=== PATIENT | male | born 1940 | race Caucasian/White ===

== ENCOUNTER 2017-10-03 08:37 | Day surgery (SDC) | payer OTHER ==
--- OUTSIDE RECORDS SUMMARY | 2017-10-03 08:41 | XMS REPORT | Clinical Summary ---
:1940 Author Organization [facility] Address [address] [place] [address] Care Team Providers Name Role Phone Asked, No Pcp Primary Care Provider Unavailable Allergies No Known Allergies Current Medications Prescription Sig. Disp. Refills Start Date End Date Status CLOPIDOGREL Take 75 mg by Active BISULFATE mouth daily. (CLOPIDOGREL ORAL) SIMVASTATIN ORAL Take 80 mg by Active mouth daily. metoprolol Take 50 mg by Active succinate XL mouth daily. (TOPROL-XL) 50 mg 24 hr tablet UNABLE TO FIND 1 tablet daily. Discontinued Metoprolol ER - 7 patient does not know dosage UNABLE TO FIND 50 mg daily. Discontinued Metoprolol ER 7 traMADol (ULTRAM) Take 1 tablet 30 tablet 0 05/03/2017 50 mg tablet (50 mg total) by 7 mouth every 6 (six) hours as needed for moderate pain for up to 10 days. enoxaparin Inject 0.4 mL 8 mL 0 05/03/2017 (LOVENOX) 40 (40 mg total) 8 mg/0.4 mL syringe under the skin daily for 20 days. traMADol (ULTRAM) Take 1 tablet 30 tablet 0 07/31/2017 50 mg tablet (50 mg total) by 8 mouth every 6 (six) hours as needed for severe pain for up to 7 days. gabapentin Take 1 capsule 36 capsule 0 07/31/2017 (NEURONTIN) 300 mg (300 mg total) 8 capsule by mouth 3 (three) times a day for 12 days. Active Problems Problem Noted Date Attention to ileostomy 07/28/2017 CA of rectum 04/28/2017 Encounters Date Type Specialty Care Team Description 07/28/2017 - Hospital Encounter General Surgery Ally Funes Attention to 07/31/2017 MD Levon ileostomy 07/28/2017 Procedure Pass Urology 07/28/2017 Surgery Urology Shira Funes. ILEOSTOMY CLOSURE MD Levon 07/27/2017 Pre-Admit Testing Pre-Admission Shira Funes. Preop testing Appointment Testing MD Levon (Primary Dx) 07/27/2017 Hospital Encounter Radiology Shira Funes. Attention to MD Levon ileostomy 07/06/2017 Transcribe Orders Access Shira Funes. History of colon MD Levon cancer (Primary Dx) 07/05/2017 Transcribe Orders Access Shira Funes. MD Levon 07/03/2017 Hospital Encounter Radiology Shira Funes. Attention to MD Levon ileostomy 07/03/2017 Pre-Admit Testing Pre-Admission Shira Funes. Preop examination Appointment Testing MD Levon (Primary Dx) 07/03/2017 Anesthesia Event Urology Colleen Dunn, [employer] WORK[employer] 06/23/2017 Transcribe Orders Access Shira Funes. Attention to MD Levon ileostomy (Primary Dx) 06/22/2017 Transcribe Orders Access Shira Funes. Attention to MD Levon ileostomy (Primary Dx) 04/28/2017 - Hospital Encounter General Surgery Shira Funes. CA of rectum 05/03/2017 MD Levon 04/28/2017 Procedure Pass Urology 04/28/2017 Surgery Urology Shira Funes. LOW ANTERIOR MD Levon RESECTION W/ LOOP ILEOSTOMY. 04/19/2017 Hospital Encounter Radiology Fredo, Preop testing Catrina, [employer] WORKER 04/19/2017 Pre-Admit Testing Pre-Admission Ally Funes Preop testing Appointment Testing MD Levon (Primary Dx) 04/19/2017 Anesthesia Event Urology Catrina Yoo, [employer] WORKER 04/05/2017 Hospital Encounter Urology Shira Funes. MD Levon 04/05/2017 Procedure Pass Urology 04/05/2017 Surgery Urology Shira Funes. ANAL EXAM UNDER MD Levon ANESTHESIA , PROCTOSCOPY 04/04/2017 Anesthesia Event Urology Edgar Brooks MD 01/27/2017 Hospital Encounter Radiology Ally Funes Rectal cancer MD Levon 12/12/2016 Procedure Pass Radiology 12/12/2016 Transcribe Orders Access Ally Funes Rectal cancer MD Levon (Primary Dx) after 10/02/2016 Social History Tobacco Use Types Packs/Day Years Used Date Former Smoker Cigarettes 1 30 Smokeless Tobacco: Former User Chew Quit: 03/22/1995 Comments: stopped 1989 Alcohol Use Drinks/Week oz/Week Comments No Sex Assigned at Date Recorded Not on file Last Filed Vital Signs Vital Sign Reading Time Taken Blood Pressure 136/62 07/31/2017 7:30 AM CDT Pulse 59 07/31/2017 7:30 AM CDT Temperature 36.3 C (97.3 F) 07/31/2017 7:30 AM CDT Respiratory Rate 18 07/31/2017 7:30 AM CDT Oxygen Saturation 96% 07/31/2017 7:30 AM CDT Inhaled Oxygen Concentration - - Weight 73.5 kg (162 lb 1 oz) 07/28/2017 6:51 AM PRIMARY CARE PROVIDER Height 172.7 cm (5' 8") 07/28/2017 6:51 AM PRIMARY CARE PROVIDER Body Mass Index 24.64 07/28/2017 6:51 AM PRIMARY CARE PROVIDER Plan of Treatment Health Maintenance Due Date Last Done Comments COLONOSCOPY 1992 SHINGRIX VACCINE (#1) 1992 ZOSTER VACCINE 2002 PNEUMOCOCCAL POLYSACCHARIDE VACCINE AGE 65 AND OVER 2007 PNEUMOCOCCAL-13 2007 INFLUENZA VACCINE 12/20/2017 Implants Implanted Type Area Wardrobe Technician Device Expiration Model / Identifier Date Serial / Lot Drain Wnd 20cm 10mm Flat Hbls Full Perfrtn Suzanna - [id number] Surgical [employer] [id number] / Implanted: Qty: 1 on 04/28/2017 by Ally Funes MD Implants; DIVISION / Expanders; Extenders; Surgical Wires Procedures Procedure Name Priority Date/Time Associated Diagnosis Comments ILEOSTOMY CLOSURE 07/28/2017 9:00 AM PRIMARY CARE PROVIDER Attention to ileostomy Case Notes GEN/EPI ANESTHESIA Special Needs GEN/EPI ANESTHESIA WA AN ELECTIVE ENDOTRACHEAL AIRWAY Routine 07/28/2017 8:22 AM PRIMARY CARE PROVIDER Procedure Note - Diogo Steward CRNA - 07/28/2017 8:22 AM PRIMARY CARE PROVIDER Airway Date/Time: 07/28/2017 8:22 AM Performed by: DIOGO STEWARD Authorized by: MILTON VALLEJO Location: OR Urgency: Elective Difficult Airway: No Resident/FUNCTIONAL SUPPORT ANALYST/AA: DIOGO STEWARD Performed by: resident/FUNCTIONAL SUPPORT ANALYST/AA Preoxygenated with 100% O2: Yes C-spine Precautions Maintained Throughout: Yes Mask Ventilation: Easy mask Final Airway Type: Endotracheal airway Final Endotracheal Airway: ETT Cuffed: Yes Technique Used: Direct laryngoscopy Devices/Methods Used in Placement: Intubating stylet Insertion Site: Oral Blade Type: Escamilla Laryngoscope Blade/Videolaryngoscope Blade Size: 2 ETT Size (mm): 8.0 Cuff at minimum occlusion pressure: Yes Measured from: Lips ETT to Lips (cm): 21 Placement Verified by: CO2 detection, direct visualization and equal breath sounds Laryngoscopic view: Grade I - full view of glottis Rapid Sequence Induction (RSI): No Modified RSI: No Number of Attempts at Approach: 1 LOW ANTERIOR RESECTION W/ LOOP ILEOSTOMY. 04/28/2017 9:30 AM PRIMARY CARE PROVIDER CA of rectum Case Notes EST 2.5HRS; GEN EPI ANESTHESIA Special Needs EST 2.5HRS; GEN EPI ANESTHESIA WA AN EPIDURAL BLOCK POST-OP PAIN Routine 04/28/2017 8:55 AM PRIMARY CARE PROVIDER Procedure Note - Greg Gonzalez DO - 04/28/2017 8:54 AM PRIMARY CARE PROVIDER Epidural Block Performed by: GREG GONZALEZ Authorized by: GREG GONZALEZ Patient Location: Pre-op Start Time: 04/28/2017 8:36 AM End Time: 04/28/2017 8:50 AM Reason for Block: at surgeon's request, post-op pain management Performed by: Anesthesiologist Preprocedure: patient identified, IV checked, site and side verified, risks and benefits discussed, procedure verified, surgical consent completed, patient position confirmed, monitors and equipment checked and pre-op evaluation completed Patient Position: Sitting Prep: Betasept Monitoring: Blood pressure monitoring, continuous pulse oximetry, CO2 and heart rate Approach: Midline Interspace: T11-12 Injection Technique: KEVAN air Needle Type: Tuohy Needle Gauge: 17 Loss of resistance: 5 cm Catheter at Skin Depth: 9 cm Test Dose: Negative and lidocaine 1.5% with epinephrine 1-to-200,000 Number of Attempts: 1 Coagulation status: Coagulation status reviewed Block Outcome: No apparent complications, patient comfortable and patient tolerated procedure well Post-procedure: Patient returned to supine position with left lateral displacement and sterile dressing applied Time: 04/28/2017 8:36 AM CONSULT TO OSTOMY CARE NURSE Routine 04/28/2017 8:00 AM PRIMARY CARE PROVIDER WA AN ELECTIVE SUPRAGLOTTIC AIRWAY Routine 04/05/2017 1:00 PM PRIMARY CARE PROVIDER Procedure Note - Joey Melendez MD - 04/05/2017 1:00 PM PRIMARY CARE PROVIDER Airway Performed by: JOEY MELENDEZ Authorized by: JOEY MELENDEZ Location: OR Urgency: Elective Difficult Airway: No Preoxygenated with 100% O2: Yes Mask Ventilation: Easy mask Final Airway Type: Supraglottic airway Final LMA: Classic LMA Size: 5 Number of Attempts at Approach: 1 ANAL EXAM UNDER ANESTHESIA , 04/05/2017 12:30 PM PRIMARY CARE PROVIDER RECTAL CARCINOMA C20 PROCTOSCOPY Case Notes REQ 1230 START Special Needs REQ 1230 START, EST 1HR after 10/02/2016 Results CBC with platelet and differential (07/30/2017 4:30 AM)Only the most recent of4 resultswithin the time period is included. Component Value Ref Range WBC 9.52 4.50 - 11.00 k/uL RBC 4.07 (L) 4.40 - 6.00 m/uL HGB 12.5 (L) 14.0 - 18.0 g/dL HCT 38.0 (L) 41.0 - 51.0 % MCV 93.4 82.0 - 100.0 fL MCH 30.7 27.0 - 34.0 pg MCHC 32.9 31.0 - 37.0 g/dL RDW - SD 47.2 37.0 - 55.0 fL MPV 8.2 (L) 8.8 - 13.2 fL Platelet count 248 150 - 400 k/uL Nucleated RBC 0.00 /100 WBC Neutrophils 66.8 39.0 - 69.0 % Lymphocytes 19.2 (L) 25.0 - 45.0 % Monocytes 11.6 (H) 0.0 - 10.0 % Eosinophils 1.8 0.0 - 5.0 % Basophils 0.3 0.0 - 1.0 % Immature granulocytes 0.3Comment: "Immature granulocytes" 0.0 - 1.0 % (promyelocytes, myelocytes, metamyelocytes) Specimen Performing Laboratory Blood [facility] DEPARTMENT OF PATHOLOGY AND GENOMIC MEDICINE [address] [id number] Estimated GFR (07/30/2017 4:00 AM)Only the most recent of7 resultswithin the time period is included. Component Value Ref Range GFR Non Af Amer 65 mL/min/1.73 m2 GFR Af Amer 79 mL/min/1.73 m2 Comment: Chronic kidney disease: <60 mL/min/1.73m2 Kidney failure: <15 mL/min/1.73m2 The estimated GFR is calculated from the IDMS-traceable Modification of Diet in Renal Disease Equation. The accuracy of the calculation is poor when the creatinine is normal. Calculated values >90 mL/min/1.73m2 are not reported. This equation has not been validated in children (<18 years), women, the elderly (>70 years), or ethnic groups other than Caucasians and Americans. Specimen Performing Laboratory Plasma specimen [facility] DEPARTMENT OF PATHOLOGY AND GENOMIC MEDICINE [address] [place] [address] Phosphorus level (07/30/2017 4:00 AM)Only the most recent of3 resultswithin the time period is included. Component Value Ref Range Phosphorus 3.2 2.4 - 4.5 mg/dL Specimen Performing Laboratory Plasma specimen [facility] DEPARTMENT OF PATHOLOGY AND GENOMIC MEDICINE [address] [place] [address] Magnesium level (07/30/2017 4:00 AM)Only the most recent of3 resultswithin the time period is included. Component Value Ref Range Magnesium 2.0 1.6 - 2.4 mg/dL Specimen Performing Laboratory Plasma specimen [facility] DEPARTMENT OF PATHOLOGY AND [facility]ICINE [address] [place] [address] Basic metabolic panel (07/30/2017 4:00 AM)Only the most recent of4 resultswithin the time period is included. Component Value Ref Range Sodium 140 135 - 148 mEq/L Potassium 4.0 3.5 - 5.0 mEq/L Chloride 105 98 - 112 mEq/L CO2 22 (L) 24 - 31 mEq/L Anion gap 13 7 - 15 mEq/L Comment: Starting from August , anion gap calculation no longer incorporates potassium. Please note the change. BUN 8 8 - 23 mg/dL Creatinine 1.1 0.7 - 1.2 mg/dL Glucose 79 65 - 99 mg/dL Calcium 8.9 8.8 - 10.2 mg/dL Specimen Performing Laboratory Plasma specimen [facility] DEPARTMENT OF PATHOLOGY AND GENOMIC MEDICINE [address] [place] [address] Surgical pathology request (07/28/2017 9:55 AM)Only the most recent of3 resultswithin the time period is included. Component Value Ref Range Surgical pathology report See link below for PDF Lab Report Result status This is Final Report to [id number] Specimen Performing Laboratory [facility] DEPARTMENT OF PATHOLOGY AND GENOMIC MEDICINE [address] [place] [address] Type and screen (07/27/2017 11:48 AM)Only the most recent of3 resultswithin the time period is included. Component Value Ref Range ABO grouping A Rh type POS Antibody screen (gel) NEG Specimen Performing Laboratory Blood [facility] DEPARTMENT OF PATHOLOGY AND [address] [address] [place] Colon Gastrografin Water Soluble Enema (07/27/2017 11:19 AM)Only the most recent of2 resultswithin the time period is included. Specimen Performing Laboratory [facility] [address] [place] [address] Narrative EXAMINATION:FL COLON GASTROGRAFIN WATER SOLUBLE ENEMA CLINICAL HISTORY:Z43.2 Encounter for attention to ileostomy, Z43.2 COMPARISON:07/03/2017 TECHNIQUE:Water-soluble contrast administered via a rectal tube by gravity under fluoroscopic guidance. Spot radiographs and overhead films were obtained. FLUOROSCOPIC TIME:1.6 minutes IMAGES:22 FINDINGS: There are postsurgical changes in the lower rectum. Contrast passes through this area without contrast leak. There is no stricture in this area. There are left-sided colonic diverticula. There is no colonic stricture identified. Contrast reached the cecum. IMPRESSION: Postsurgical changes in the lower rectum without evidence of leak or stricture. Additional findings as above. [facility]-[id number] Procedure Note Interface, Radiology Results Incoming - 07/27/2017 11:53 AM PRIMARY CARE PROVIDER EXAMINATION: FL COLON GASTROGRAFIN WATER SOLUBLE ENEMA CLINICAL HISTORY: Z43.2 Encounter for attention to ileostomy, Z43.2 COMPARISON: 07/03/2017 TECHNIQUE: Water-soluble contrast administered via a rectal tube by gravity under fluoroscopic guidance. Spot radiographs and overhead films were obtained. FLUOROSCOPIC TIME: 1.6 minutes IMAGES: 22 FINDINGS: There are postsurgical changes in the lower rectum. Contrast passes through this area without contrast leak. There is no stricture in this area. There are left-sided colonic diverticula. There is no colonic stricture identified. Contrast reached the cecum. IMPRESSION: Postsurgical changes in the lower rectum without evidence of leak or stricture. Additional findings as above. [facility]-[id number] CBC hemogram (07/03/2017 12:38 PM) Component Value Ref Range WBC 8.30 4.50 - 11.00 k/uL RBC 5.01 4.40 - 6.00 m/uL HGB 15.4 14.0 - 18.0 g/dL HCT 46.0 41.0 - 51.0 % MCV 91.8 82.0 - 100.0 fL MCH 30.7 27.0 - 34.0 pg MCHC 33.5 31.0 - 37.0 g/dL RDW - SD 47.3 37.0 - 55.0 fL MPV 8.3 (L) 8.8 - 13.2 fL Platelet count 343 150 - 400 k/uL Nucleated RBC 0.00 /100 WBC Specimen Performing Laboratory Blood [facility] DEPARTMENT OF PATHOLOGY AND GENOMIC MEDICINE [address] [place] [phone] Comprehensive metabolic panel (07/03/2017 12:38 PM)Only the most recent of2 resultswithin the time period is included. Component Value Ref Range Sodium 139 135 - 148 mEq/L Potassium 4.4 3.5 - 5.0 mEq/L Chloride 103 98 - 112 mEq/L CO2 23 (L) 24 - 31 mEq/L Anion gap 13 7 - 15 mEq/L Comment: Starting from August , anion gap calculation no longer incorporates potassium. Please note the change. BUN 12 8 - 23 mg/dL Creatinine 1.2 0.7 - 1.2 mg/dL Glucose 111 (H) 65 - 99 mg/dL Calcium 9.9 8.8 - 10.2 mg/dL Protein 7.5 6.3 - 8.3 g/dL Comment: 4.6-7.0 g/dL 1 week 4.4-7.6 g/dL 7 months-1year5.1-7.3 g/dL 1-2 years5.6-7.5 g/dL >3 years6.0-8.0 g/dL 18-150 6.3-8.3 g/dL Albumin 3.6 3.5 - 5.0 g/dL A/G ratio 0.9 0.7 - 3.8 Alkaline phosphatase 82 40 - 129 U/L AST 19 10 - 50 U/L ALT 24 5 - 50 U/L Total bilirubin 0.4 0.0 - 1.2 mg/dL Specimen Performing Laboratory Plasma specimen [facility] DEPARTMENT OF PATHOLOGY AND GENOMIC MEDICINE [address] [place] [address] ECG Pre/Post Op (04/19/2017 12:47 PM) Component Value Ref Range Ventricular rate 57 Atrial rate 57 WA interval 176 QRSD interval 98 QT interval 442 QTC interval 430 P axis 1 47 QRS axis 1 -29 T wave axis 46 EKG impression Sinus bradycardia-Otherwise normal ECG-In automated comparison with ECG of 05-APR-2017 12:04,-No significant change was found- Specimen Performing Laboratory [facility] M[facility] [address] [place] [address] XR Chest 2 Vw (04/19/2017 12:09 PM) Specimen Performing Laboratory [facility] [address] [place] [address] Narrative EXAMINATION:XR CHEST 2 VW CLINICAL HISTORY:Z01.818 Encounter for other preprocedural examination, pre -op shortness of breath COMPARISON:None IMPRESSION: There is mild thoracic scoliosis.There is a right IJ catheter in his peer vena cava. The heart and mediastinum are normal.Pulmonary vessels are in the normal range.The lung garcia are clear. There is bony deformity in the left upper ribs from previous fracture. [facility]-[id number] Procedure Note Interface, Radiology Results Incoming - 04/19/2017 12:27 PM PRIMARY CARE PROVIDER EXAMINATION: XR CHEST 2 VW CLINICAL HISTORY: Z01.818 Encounter for other preprocedural examination, pre- op shortness of breath COMPARISON: None IMPRESSION: There is mild thoracic scoliosis. There is a right IJ catheter in his peer vena cava. The heart and mediastinum are normal. Pulmonary vessels are in the normal range. The lung garcia are clear. There is bony deformity in the left upper ribs from previous fracture. [facility]-[id number] Estimated GFR (04/05/2017 12:30 PM) Component Value Ref Range GFR Non Af Amer 59 (A) mL/min/1.73 m2 GFR Af Amer 72 mL/min/1.73 m2 Comment: Chronic kidney disease: <60 mL/min/1.73m2 Kidney failure: <15 mL/min/1.73m2 The estimated GFR is calculated from the IDMS-traceable Modification of Diet in Renal Disease Equation. The accuracy of the calculation is poor when the creatinine is normal. Calculated values >90 mL/min/1.73m2 are not reported. This equation has not been validated in children (<18 years), women, the elderly (>70 years), or ethnic groups other than Caucasians and Americans. Specimen Performing Laboratory Blood [facility] DEPARTMENT OF PATHOLOGY AND GENOMIC MEDICINE [address] [place] [address] I-Stat chemistry panel (04/05/2017 12:30 PM) Component Value Ref Range POC sodium 141Comment: Testing performed on the ISTAT instrument 135 - 148 mEq/L by RN Tech [id number] POC potassium 4.0 3.5 - 5.0 mEq/L POC chloride 104 99 - 109 mEq/L POC CO2 27 24 - 31 mEq/L POC glucose 103 (H) 65 - 99 mg/dL POC BUN 17 8 - 24 mg/dL POC creatinine 1.2 0.7 - 1.2 mg/dl POC hematocrit 48 41 - 51 % Specimen Performing Laboratory Blood [facility] DEPARTMENT OF PATHOLOGY AND [facility] MEDICINE [address] [place] [address]91 ECG 12 lead (04/05/2017 12:04 PM) Component Value Ref Range Ventricular rate 62 Atrial rate 62 WA interval 170 QRSD interval 104 QT interval 428 QTC interval 434 P axis 1 10 QRS axis 1 -38 T wave axis 51 EKG impression Normal sinus rhythm-Left axis deviation-Abnormal ECG-No previous ECGs available- Specimen Performing Laboratory [facility] [address] [place] [address]22 MRI Pelvis W Wo Contrast (01/27/2017 12:00 PM) Specimen Performing Laboratory [facility] [address] [place] [address]48 Narrative EXAMINATION:MRI PELVIS W WO CONTRAST CLINICAL HISTORY:C20 Malignant neoplasm of rectum, RECTAL CA TECHNIQUE: Multiplanar multisequence MR images of the pelvis were obtained pre - and post intravenous administration of Gadolinium. COMPARISON:None. IMPRESSION: 1. There is a mid to low rectal tumor. The inferior margin is approximately 7 cm from the anal verge along the right lateral aspect, with central ulceration. Tumor measures approximately 1.5 cm. High-resolution oblique axial images (series 7 image 13) demonstrate a short segment of full-thickness muscularis propria invasion from 8-9:00, suggesting T3a disease. Tumor comes within 4 mm of the CRM at this point. 2.There is no suspicious mesorectal lymphadenopathy (N0).There is no adenopathy elsewhere in the pelvis. 3.Diffuse T2 hypointensity in the peripheral zone of the prostate most suggestive of prostatitis/atrophy. Mild BPH. 4.The urinary bladder is unremarkable. 5.There is sigmoid diverticulosis without acute diverticulitis. 6.No suspicious osseous lesions are seen. [facility]-[id number] Procedure Note [facility], Radiology Results Incoming - 01/27/2017 5:08 PM CDT EXAMINATION: MRI PELVIS W WO CONTRAST CLINICAL HISTORY: C20 Malignant neoplasm of rectum, RECTAL CA TECHNIQUE: Multiplanar multisequence MR images of the pelvis were obtained pre - and post intravenous administration of Gadolinium. COMPARISON: None. IMPRESSION: 1. There is a mid to low rectal tumor. The inferior margin is approximately 7 cm from the anal verge along the right lateral aspect, with central ulceration. Tumor measures approximately 1.5 cm. High-resolution oblique axial images (series 7 image 13) demonstrate a short segment of full-thickness muscularis propria invasion from 8-9:00, suggesting T3a disease. Tumor comes within 4 mm of the CRM at this point. 2. There is no suspicious mesorectal lymphadenopathy (N0). There is no adenopathy elsewhere in the pelvis. 3. Diffuse T2 hypointensity in the peripheral zone of the prostate most suggestive of prostatitis/atrophy. Mild BPH. 4. The urinary bladder is unremarkable. 5. There is sigmoid diverticulosis without acute diverticulitis. 6. No suspicious osseous lesions are seen. [facility]-[id number] Creatinine level (01/27/2017 10:59 AM) Component Value Ref Range Creatinine 1.3 (H)Comment: Testing performed on the ISTAT instrument 0.7 - 1.2 mg/dL by GERARDO Bates [id number] Specimen Performing Laboratory Plasma specimen [facility] DEPARTMENT OF PATHOLOGY AND GENOMIC MEDICINE [address] [place] [address] after 10/02/2016 Insurance Payer Benefit Plan / Group Subscriber ID Type Phone Address [employer] MED[employer]ARE A[employer]NA MEDICARE HMO/PPO [facility] xxxxxxxx HMO Home: [address] [place], [place] [id number] [phone]
--- OUTSIDE RECORDS SUMMARY | 2017-10-03 08:42 | XMS REPORT ---
:1940 [facility] [address] [place] [address] [address]. G[address] [place] [address] Care Team Providers Name Role Phone VENTURA VALDOVINOS Unavailable Unavailable Problems This patient has no known problems. Allergies, Adverse Reactions, Alerts This patient has no known allergies or adverse reactions. Medications This patient has no known medications. Results Test Description Test Time Test Comments Text Results Atomic Results Result Comments BLOOD CULTURE 2016-11-10 11:01:00 Test Item Value Reference Range Comments CULTURE (BEAKER) (test kssm=8597) No growth in 5 days TISSUE [id number] 19:27:00Surgical Pathology Report Case: [id number] Authorizing Provider: Bruna Hauser Collected: 11/05/2016 1058 MD Anderson OrderingLocation: [place] [address] ICU Received: 2016 0813 Pathologist: Steve Cabrales MD Specimen: Polyp, Colon - Rectosigmoid , BX OF THE RECTOSIGMOID MASS A. RECTOSIGMOID COLON , MASS, BIOPSY: - SUPERFICIAL FRAGMENTS OF ADENOCARCINOMA ( SEE COMMENT) - UNDERLYING INVASIVE COMPONENT CANNOT BE EXCLUDED The biopsy consists of several fragments of superficially sampled adenocarcinoma. No definite desmoplastic stroma is seen to confidently assess invasion. Clinical and radiologic correlation is recommended.[id number] GI bleedRectosigmoid mass biopsy The specimen is received in a formalin-filled containerlabeled with the patient's information and labeled " "rectosigmoid colon polyp" and consists of multiple fragments of tom-white soft tissue ranging from 0.1 to 0.4 cm, submitted entirely in A1. CG/ew Performed.BASIC METABOLIC [id number] 07:03:00 Test Item Value Reference Range Comments SODIUM (BEAKER) (test 138 meq/L 136-145 ohhm=662) POTASSIUM (BEAKER) (test 3.5 meq/L 3.5-5.1 qfnw=378) CHLORIDE (BEAKER) (test 106 meq/L 98-107 fikl=120) CO2 (BEAKER) (test 25 meq/L 22-29 oazj=093) BLOOD UREA NITROGEN 11 mg/dL 7-21 (BEAKER) (test vqri=761) CREATININE (BEAKER) (test 0.99 mg/dL 0.57-1.25 lawj=796) GLUCOSE RANDOM (BEAKER) 102 mg/dL 70-105 (test prja=556) CALCIUM (BEAKER) (test 8.1 mg/dL 8.4-10.2 ukaa=888) EGFR (BEAKER) (test 74 mL/min/1.73 sq m ESTIMATED GFR IS NOT jydt=8430) ACCURATE CREATININE CLEARANCE IN PREDICTING GLOMERULAR FILTRATION RATE. ESTIMATED GFR IS NOT APPLICABLE FOR DIALYSIS PATIENTS. CBC (HEMOGRAM ONLY)2016-11-07 06:42:00 Test Item Value Reference Range Comments WHITE BLOOD CELL COUNT (BEAKER) (test kdyc=306) 11.5 K/ L 4.0-10.0 RED BLOOD CELL COUNT (BEAKER) (test nkst=267) 3.73 M/ L 4.20-5.80 HEMOGLOBIN (BEAKER) (test quit=970) 11.3 GM/DL 13.0-16.8 HEMATOCRIT (BEAKER) (test benq=934) 34.8 % 40.0-50.0 MEAN CORPUSCULAR VOLUME (BEAKER) (test moja=844) 93.5 fL 82.0-98.0 MEAN CORPUSCULAR HEMOGLOBIN (BEAKER) (test 30.4 pg 27.0-33.0 lsjs=505) MEAN CORPUSCULAR HEMOGLOBIN CONC (BEAKER) (test 32.5 GM/DL 32.0-36.0 pluv=723) RED CELL DISTRIBUTION WIDTH (BEAKER) (test 14.0 % 10.3-14.2 auid=494) PLATELET COUNT (BEAKER) (test iekn=231) 219 K/CU MM 150-430 MEAN PLATELET VOLUME (BEAKER) (test ftuh=121) 6.0 fL 6.5-10.5 NUCLEATED RED BLOOD CELLS (BEAKER) (test 0 /100 WBC 0-0 huio=563) 0.00BASIC METABOLIC [id number] 05:54:00 Test Item Value Reference Range Comments SODIUM (BEAKER) (test 141 meq/L 136-145 cdxj=715) POTASSIUM (BEAKER) (test 4.1 meq/L 3.5-5.1 Specimen slightly zvrn=800) hemolyzed CHLORIDE (BEAKER) (test 111 meq/L 98-107 gflm=139) CO2 (BEAKER) (test 24 meq/L 22-29 kban=498) BLOOD UREA NITROGEN 10 mg/dL 7-21 (BEAKER) (test wmtw=593) CREATININE (BEAKER) (test 0.88 mg/dL 0.57-1.25 Specimen slightly qgad=362) hemolyzed GLUCOSE RANDOM (BEAKER) 95 mg/dL 70-105 (test cant=418) CALCIUM (BEAKER) (test 8.1 mg/dL 8.4-10.2 lqrj=111) EGFR (BEAKER) (test 85 mL/min/1.73 sq m ESTIMATED GFR IS NOT mhjf=8217) ACCURATE CREATININE CLEARANCE IN PREDICTING GLOMERULAR FILTRATION RATE. ESTIMATED GFR IS NOT APPLICABLE FOR DIALYSIS PATIENTS. CBC (HEMOGRAM ONLY)2016-11-06 05:38:00 Test Item Value Reference Range Comments WHITE BLOOD CELL COUNT (BEAKER) (test xhmv=458) 12.6 K/ L 4.0-10.0 RED BLOOD CELL COUNT (BEAKER) (test pllu=277) 3.74 M/ L 4.20-5.80 HEMOGLOBIN (BEAKER) (test pkab=792) 11.3 GM/DL 13.0-16.8 HEMATOCRIT (BEAKER) (test ajup=761) 35.0 % 40.0-50.0 MEAN CORPUSCULAR VOLUME (BEAKER) (test rnsb=607) 93.6 fL 82.0-98.0 MEAN CORPUSCULAR HEMOGLOBIN (BEAKER) (test 30.3 pg 27.0-33.0 xmct=107) MEAN CORPUSCULAR HEMOGLOBIN CONC (BEAKER) (test 32.4 GM/DL 32.0-36.0 pvnd=122) RED CELL DISTRIBUTION WIDTH (BEAKER) (test 14.1 % 10.3-14.2 bnur=633) PLATELET COUNT (BEAKER) (test zoje=432) 215 K/CU MM 150-430 MEAN PLATELET VOLUME (BEAKER) (test tier=698) 6.5 fL 6.5-10.5 NUCLEATED RED BLOOD CELLS (BEAKER) (test 0 /100 WBC 0-0 hkdk=141) 0.00HEMOGLOBIN AND [id number] 00:16:00 Test Item Value Reference Range Comments HEMOGLOBIN (BEAKER) (test fggs=268) 9.8 GM/DL 13.0-16.8 HEMATOCRIT (BEAKER) (test kfwk=014) 30.4 % 40.0-50.0 CARCINOEMBRYONIC ANTIGEN (CEA)2016-11-05 17:22:00 Test Item Value Reference Range Comments CARCINOEMBRYONIC ANTIGEN (BEAKER) (test vskg=855) 1.7 ng/mL 0.0-5.0 HEMOGLOBIN AND [id number] 16:51:00 Test Item Value Reference Range Comments HEMOGLOBIN (BEAKER) (test plqg=439) 11.8 GM/DL 13.0-16.8 HEMATOCRIT (BEAKER) (test hkva=995) 37.0 % 40.0-50.0 HEMOGLOBIN AND [id number] 07:34:00 Test Item Value Reference Range Comments HEMOGLOBIN (BEAKER) (test kwia=946) 12.1 GM/DL 13.0-16.8 HEMATOCRIT (BEAKER) (test azca=173) 37.6 % 40.0-50.0 URINALYSIS W/ [id number] 07:10:00 Test Item Value Reference Range Comments COLOR (BEAKER) (test wxuy=613) Light Yellow CLARITY (BEAKER) (test qpwu=732) Clear SPECIFIC GRAVITY UA (BEAKER) (test kaad=935) 1.012 1.001-1.035 PH UA (BEAKER) (test nrvm=607) 5.5 5.0-8.0 PROTEIN UA (BEAKER) (test rhnu=970) Negative Negative GLUCOSE UA (BEAKER) (test xqmt=695) Negative Negative KETONES UA (BEAKER) (test fjmb=400) Negative Negative BILIRUBIN UA (BEAKER) (test qmgj=977) Negative Negative BLOOD UA (BEAKER) (test uirv=291) Negative Negative NITRITE UA (BEAKER) (test kbgj=088) Negative Negative LEUKOCYTE ESTERASE UA (BEAKER) (test wyne=109) Negative Negative UROBILINOGEN UA (BEAKER) (test mjta=504) 0.2 mg/dL 0.2-1.0 RBC UA (BEAKER) (test ympq=981) 0 /HPF WBC UA (BEAKER) (test txxe=990) 1 /HPF MUCUS (BEAKER) (test vsjv=9586) Rare SOURCE(BEAKER) (test ryma=7801) CALCIUM, [id number] 05:43:00 Test Item Value Reference Range Comments CALCIUM IONIZED (BEAKER) (test uhgq=084) 0.97 mmol/L 1.12-1.27 PH, BLOOD (BEAKER) (test yafb=7865) 7.33 CREATINE KINASE (CK), TOTAL AND [id number] 01:37:00 Test Item Value Reference Range Comments CREATINE KINASE TOTAL (BEAKER) (test egip=994) 40 U/L 29-200 CREATINE KINASE-MB (BEAKER) (test tlwv=710) 0.5 ng/mL 0.0-6.6 CREATINE KINASE-MB INDEX (BEAKER) (test rhtf=395) 1.3 % Effective 04/08/2014: CK-MB Reference Range ChangeNew: 0.0-6.6 Previous: 0.0- 4.9CK-MB Reference Range:<6.7 Normal6.7-10.0 Borderline>10.0 AbnormalTROPONIN [id number] 01:37:00 Test Item Value Reference Range Comments TROPONIN I (BEAKER) (test vbtv=576) < ng/mL 0.00-0.03 Effective 04/08/2014: Reference Range ChangeNew: 0.00-0.03 Previous 0.00- 0.15Troponin I (TnI) levels must be interpreted in the context of the presenting symptoms and the clinical findings. Elevated TnI levels indicate myocardial damage, but are not specific for ischemic heart disease. Elevated TnI levels are seen in patients with other cardiac conditions (including myocarditis and congestive heartfailure), and slight TnI elevations occur in patients with other conditions, including sepsis, renalfailure, acidosis, acute neurological disease, and persistent tachyarrhythmia.BASIC METABOLIC [id number] 01:30:00 Test Item Value Reference Range Comments SODIUM (BEAKER) (test 141 meq/L 136-145 dwcq=240) POTASSIUM (BEAKER) (test 4.4 meq/L 3.5-5.1 Specimen slightly rmuu=546) hemolyzed CHLORIDE (BEAKER) (test 111 meq/L 98-107 xdgy=756) CO2 (BEAKER) (test 19 meq/L 22-29 qygz=010) BLOOD UREA NITROGEN 17 mg/dL 7-21 (BEAKER) (test zoxg=753) CREATININE (BEAKER) (test 1.28 mg/dL 0.57-1.25 Specimen slightly myru=439) hemolyzed GLUCOSE RANDOM (BEAKER) 133 mg/dL 70-105 (test hedx=656) CALCIUM (BEAKER) (test 8.1 mg/dL 8.4-10.2 clfh=510) EGFR (BEAKER) (test 55 mL/min/1.73 sq m ESTIMATED GFR IS NOT xrtl=1385) ACCURATE CREATININE CLEARANCE IN PREDICTING GLOMERULAR FILTRATION RATE. ESTIMATED GFR IS NOT APPLICABLE FOR DIALYSIS PATIENTS. HEPATIC FUNCTION [id number] 01:30:00 Test Item Value Reference Range Comments TOTAL PROTEIN (BEAKER) (test 5.7 gm/dL 6.0-8.3 Specimen slightly hemolyzed lpml=111) ALBUMIN (BEAKER) (test 3.5 g/dL 3.5-5.0 Specimen slightly hemolyzed rcsf=3674) BILIRUBIN TOTAL (BEAKER) (test 0.6 mg/dL 0.2-1.2 Specimen slightly hemolyzed siay=645) BILIRUBIN DIRECT (BEAKER) (test 0.2 mg/dL 0.1-0.5 Specimen slightly hemolyzed kndo=007) ALKALINE PHOSPHATASE (BEAKER) 59 U/L 40-150 (test fzcz=692) AST (SGOT) (BEAKER) (test 18 U/L 5-34 Specimen slightly hemolyzed exio=365) ALT (SGPT) (BEAKER) (test 13 U/L 6-55 Specimen slightly hemolyzed odxs=766) CBC W/PLT COUNT & AUTO [id number] 01:17:00 Test Item Value Reference Range Comments WHITE BLOOD CELL COUNT (BEAKER) (test htex=146) 14.7 K/ L 4.0-10.0 RED BLOOD CELL COUNT (BEAKER) (test rqxu=474) 4.41 M/ L 4.20-5.80 HEMOGLOBIN (BEAKER) (test vaei=614) 13.8 GM/DL 13.0-16.8 HEMATOCRIT (BEAKER) (test uylf=941) 41.7 % 40.0-50.0 MEAN CORPUSCULAR VOLUME (BEAKER) (test fchw=910) 94.5 fL 82.0-98.0 MEAN CORPUSCULAR HEMOGLOBIN (BEAKER) (test 31.3 pg 27.0-33.0 aqah=163) MEAN CORPUSCULAR HEMOGLOBIN CONC (BEAKER) (test 33.1 GM/DL 32.0-36.0 pqjw=161) RED CELL DISTRIBUTION WIDTH (BEAKER) (test 12.5 % 10.3-14.2 vbyc=408) PLATELET COUNT (BEAKER) (test ihtn=242) 263 K/CU MM 150-430 MEAN PLATELET VOLUME (BEAKER) (test drtd=291) 6.2 fL 6.5-10.5 NUCLEATED RED BLOOD CELLS (BEAKER) (test 0 /100 WBC 0-0 ezpg=684) NEUTROPHILS RELATIVE PERCENT (BEAKER) (test 75 % zyno=402) LYMPHOCYTES RELATIVE PERCENT (BEAKER) (test 18 % dpmu=560) MONOCYTES RELATIVE PERCENT (BEAKER) (test 6 % hryo=934) EOSINOPHILS RELATIVE PERCENT (BEAKER) (test 1 % kvjk=269) BASOPHILS RELATIVE PERCENT (BEAKER) (test 0 % fdql=792) NEUTROPHILS ABSOLUTE COUNT (BEAKER) (test 11.10 K/ L 1.80-8.00 arib=671) LYMPHOCYTES ABSOLUTE COUNT (BEAKER) (test 2.64 K/ L 1.48-4.50 xvzi=128) MONOCYTES ABSOLUTE COUNT (BEAKER) (test 0.89 K/ L 0.00-1.30 qpzv=400) EOSINOPHILS ABSOLUTE COUNT (BEAKER) (test 0.12 K/ L 0.00-0.50 xnob=716) BASOPHILS ABSOLUTE COUNT (BEAKER) (test 0.03 K/ L 0.00-0.20 gisb=785) 0.00PT/[id number] 01:16:00 Test Item Value Reference Range Comments PROTIME (BEAKER) (test mtoz=739) 14.4 seconds 11.7-14.7 INR (BEAKER) (test pdqz=529) 1.1 <=5.9 PARTIAL THROMBOPLASTIN TIME (BEAKER) (test 25.1 seconds 22.5-36.0 ztds=653) RECOMMENDED COUMADIN/WARFARIN INR THERAPY RANGESSTANDARD DOSE: 2.0 - 3.0 Includes: PROPHYLAXIS forvenous thrombosis, systemic embolization; TREATMENT for venous thrombosis and/or pulmonary embolus.HIGH RISK: Target INR is 2.5-3.5 for patients with mechanical heart valves.PROTHROMBIN TIME/[id number] 01:15: 00 Test Item Value Reference Range Comments PROTIME (BEAKER) (test xzsp=275) 14.4 seconds 11.7-14.7 INR (BEAKER) (test dsmt=865) 1.1 <=5.9 RECOMMENDED COUMADIN/WARFARIN INR THERAPY RANGESSTANDARD DOSE: 2.0 - 3.0 Includes: PROPHYLAXIS forvenous thrombosis, systemic embolization; TREATMENT for venous thrombosis and/or pulmonary embolus.HIGH RISK: Target INR is 2.5-3.5 for patients with mechanical heart valves.
--- OUTSIDE RECORDS SUMMARY | 2017-10-03 08:42 | XMS REPORT | Clinical Summary ---
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 Encounters Date Type Specialty Care Team Description 11/05/2016 Orders Only General Internal Medicine 11/05/2016 Anesthesia Event Gastroenterology Yony Velez, YISEL 11/05/2016 Procedure Pass Gastroenterology 11/05/2016 Surgery Gastroenterology Gabe Mei, COLONOSCOPY,BIOPS Ewa Kaye MD 11/05/2016 Anesthesia Event Gastroenterology Teresa Umanzor, [employer] 11/05/2016 Procedure Pass Gastroenterology 11/04/2016 [facility] General Internal [place], Lower GI - Encounter Medicine Fermin bleed;Coronary 11/07/2016 MD Mary artery disease Lena Wilson involving um[place]illa tribe MD Rosina coronary artery of um[place] tribe heart without angina pectoris;Elevated creatine kinase;Hyperchlor emia;Hypocalcemia ;Metastatic melanoma to lung, unspecified laterality (HCC) after 10/02/2016 Social History Tobacco Use Types Packs/Day Years Used Date Former Smoker 15 Quit: 1989 Sex Assigned at Date Recorded Not on file Last Filed Vital Signs Vital Sign Reading Time Taken Blood Pressure 131/63 11/07/2016 3:00 PM CDT Pulse 92 11/07/2016 3:00 PM CDT Temperature 36 C (96.8 F) 11/07/2016 3:00 PM CDT Respiratory Rate 18 11/07/2016 3:00 PM CDT Oxygen Saturation 93% 11/07/2016 3:00 PM CDT Inhaled Oxygen Concentration - - Weight 79.5 kg (175 lb 4.8 oz) 11/07/2016 5:57 AM CDT Height 175.3 cm (5' 9") 11/04/2016 11:00 PM CDT Body Mass Index 25.89 11/07/2016 5:57 AM CDT Plan of Treatment Not on file Procedures Procedure Name Priority Date/Time Associated Diagnosis Comments UPPER ENDOSCOPY 11/05/2016 10:00 AM CDT lOWER gi bLEED COLONOSCOPY,BIOPSY 11/05/2016 10:00 AM CDT lOWER gi bLEED after 10/02/2016 Results RHYTHM STRIP - SCAN (11/08/2016 1:10 PM)CBC (Hemogram only) (11/07/2016 5:57 AM)Only the most recent of2 resultswithin the time period is included. Component Value Ref Range WBC 11.5 (H) 4.0 - 10.0 K/L RBC 3.73 (L) 4.20 - 5.80 M/L Hemoglobin 11.3 (L) 13.0 - 16.8 GM/DL Hematocrit 34.8 (L) 40.0 - 50.0 % MCV 93.5 82.0 - 98.0 fL MCH 30.4 27.0 - 33.0 pg MCHC 32.5 32.0 - 36.0 GM/DL RDW 14.0 10.3 - 14.2 % Platelets 219 150 - 430 K/CU MM MPV 6.0 (L) 6.5 - 10.5 fL nRBC 0 0 - 0 /100 WBC Specimen Performing Laboratory Blood - Arm, Left [address] [address] Narrative 0.00 Basic Metabolic Panel (11/07/2016 5:57 AM)Only the most recent of3 resultswithin the time period is included. Component Value Ref Range Sodium 138 136 - 145 meq/L Potassium 3.5 3.5 - 5.1 meq/L Chloride 106 98 - 107 meq/L CO2 25 22 - 29 meq/L BUN 11 7 - 21 mg/dL Creatinine 0.99 0.57 - 1.25 mg/dL Glucose 102 70 - 105 mg/dL Calcium 8.1 (L) 8.4 - 10.2 mg/dL EGFR 74Comment: ESTIMATED GFR IS NOT ACCURATE mL/min/1.73 sq m CREATININE CLEARANCE IN PREDICTING GLOMERULAR FILTRATION RATE. ESTIMATED GFR IS NOT APPLICABLE FOR DIALYSIS PATIENTS. Specimen Performing Laboratory Blood - Arm, Left [address] [address] Hemoglobin and hematocrit (11/05/2016 11:54 PM)Only the most recent of3 resultswithin the time period is included. Component Value Ref Range Hemoglobin 9.8 (L) 13.0 - 16.8 GM/DL Hematocrit 30.4 (L) 40.0 - 50.0 % Specimen Performing Laboratory Blood - Line, Venous [address] [address] Carcinoembryonic Antigen (CEA) (11/05/2016 4:41 PM) Component Value Ref Range CEA, SERUM 1.7 0.0 - 5.0 ng/mL Specimen Performing Laboratory Blood - Central Venous Line [address] [address] REPORT OF PROCEDURE - ENDOSCOPY URL (11/05/2016 3:45 PM)Only the most recent of2 resultswithin the time period is included.CT abdomen/pelvis with IV contrast (11/05/2016 3:26 PM) Specimen Performing Laboratory [employer] Narrative FINAL REPORT CT OF THE CHEST, ABDOMEN, AND PELVIS CLINICAL HISTORY:Melanoma, staging TECHNIQUE: CT of the chest, abdomen, and pelvis is performed with intravenous contrast administration. Oral contrast was administered. This exam was performed according to our departmental dose-optimization program which includes automated exposure control, adjustment of the mA and/or kV according to patient size and/or use of iterative reconstruction technique. COMPARISON FILM:None DISCUSSION: LINES/TUBES: Right common femoral venous catheter. LUNGS/AIRWAYS: There is a 1.4 cm subpleural nodule in the right lower lobe (lung series image 38). There is a 4 mm nodule in the left lower lobe (image 34). 5 mm nodule in the right upper lobe (image 15). Mild centrilobular emphysema. PLEURA: No effusion or pneumothorax. Right-sided pleural calcifications. HEART AND MEDIASTINUM: Coronary artery calcifications. No pericardial effusion. Subcarinal lymph node measures 1.2 cm. Lower right paratracheal lymph node measures 1.1 cm. Thyroid unremarkable. HEPATOBILIARY: No focal liver lesion. Main portal vein is patent. Gallbladder unremarkable. No biliary ductal dilation. PANCREAS: No pancreatic ductal dilation. No pancreatic lesion. SPLEEN: No splenomegaly. ADRENALS: No nodule. KIDNEYS/URETERS: Bilateral nonobstructing renal calculi measure up to 6 mm in the superior pole left kidney and 7 mm in the lower pole right kidney. No hydronephrosis or hydroureter. Subcentimeter hypodensities both kidneys are likely cysts. PELVIC ORGANS/BLADDER: Calcifications in the prostate. Bladder is distended. GI TRACT: Focal asymmetric rectal wall thickening measuring up to 1.2 cm (axial postcontrast series image 107). Mild colonic diverticulosis. Remainder of the bowel is unremarkable. PERITONEUM/RETROPERITONEUM: No free fluid or free air. LYMPH NODES: No upper abdominal, retroperitoneal, mesenteric, or pelvic lymphadenopathy. VESSELS: Scattered aortoiliac atherosclerotic calcifications. BONES AND SOFT TISSUES: No destructive osseous lesion. Degenerative changes of the thoracolumbar spine. IMPRESSION: 1. Bilateral pulmonary nodules measure up to 1.4 cm and may represent metastatic disease. Associated enlarged mediastinal lymph nodes. 2. Nonspecific focal rectal wall thickening. Consider further evaluation with endoscopy to exclude malignancy. 3. Otherwise, no findings of metastatic disease in the abdomen or pelvis. 4. Nonobstructing bilateral renal calculi. Signed: Joey Tory MD Report Verified Date/Time:11/05/2016 16:46:08 Reading Location: [address] Body Reading Room Procedure Note Interface, External Ris In - 11/05/2016 4:48 PM CDT FINAL REPORT CT OF THE CHEST, ABDOMEN, AND PELVIS CLINICAL HISTORY: Melanoma, staging TECHNIQUE: CT of the chest, abdomen, and pelvis is performed with intravenous contrast administration. Oral contrast was administered. This exam was performed according to our departmental dose-optimization program which includes automated exposure control, adjustment of the mA and/or kV according to patient size and/or use of iterative reconstruction technique. COMPARISON FILM: None DISCUSSION: LINES/TUBES: Right common femoral venous catheter. LUNGS/AIRWAYS: There is a 1.4 cm subpleural nodule in the right lower lobe (lung series image 38). There is a 4 mm nodule in the left lower lobe (image 34). 5 mm nodule in the right upper lobe (image 15). Mild centrilobular emphysema. PLEURA: No effusion or pneumothorax. Right-sided pleural calcifications. HEART AND MEDIASTINUM: Coronary artery calcifications. No pericardial effusion. Subcarinal lymph node measures 1.2 cm. Lower right paratracheal lymph node measures 1.1 cm. Thyroid unremarkable. HEPATOBILIARY: No focal liver lesion. Main portal vein is patent. Gallbladder unremarkable. No biliary ductal dilation. PANCREAS: No pancreatic ductal dilation. No pancreatic lesion. SPLEEN: No splenomegaly. ADRENALS: No nodule. KIDNEYS/URETERS: Bilateral nonobstructing renal calculi measure up to 6 mm in the superior pole left kidney and 7 mm in the lower pole right kidney. No hydronephrosis or hydroureter. Subcentimeter hypodensities both kidneys are likely cysts. PELVIC ORGANS/BLADDER: Calcifications in the prostate. Bladder is distended. GI TRACT: Focal asymmetric rectal wall thickening measuring up to 1.2 cm (axial postcontrast series image 107). Mild colonic diverticulosis. Remainder of the bowel is unremarkable. PERITONEUM/RETROPERITONEUM: No free fluid or free air. LYMPH NODES: No upper abdominal, retroperitoneal, mesenteric, or pelvic lymphadenopathy. VESSELS: Scattered aortoiliac atherosclerotic calcifications. BONES AND SOFT TISSUES: No destructive osseous lesion. Degenerative changes of the thoracolumbar spine. IMPRESSION: 1. Bilateral pulmonary nodules measure up to 1.4 cm and may represent metastatic disease. Associated enlarged mediastinal lymph nodes. 2. Nonspecific focal rectal wall thickening. Consider further evaluation with endoscopy to exclude malignancy. 3. Otherwise, no findings of metastatic disease in the abdomen or pelvis. 4. Nonobstructing bilateral renal calculi. Signed: Joey Troy MD Report Verified Date/Time: 11/05/2016 16:46:08 Reading Location: [facility] C013Y CT Body Reading Room chest with IV contrast (11/05/2016 3:26 PM) Specimen Performing Laboratory [employer] Narrative FINAL REPORT CT OF THE CHEST, ABDOMEN, AND PELVIS CLINICAL HISTORY:Melanoma, staging TECHNIQUE: CT of the chest, abdomen, and pelvis is performed with intravenous contrast administration. Oral contrast was administered. This exam was performed according to our departmental dose-optimization program which includes automated exposure control, adjustment of the mA and/or kV according to patient size and/or use of iterative reconstruction technique. COMPARISON FILM:None DISCUSSION: LINES/TUBES: Right common femoral venous catheter. LUNGS/AIRWAYS: There is a 1.4 cm subpleural nodule in the right lower lobe (lung series image 38). There is a 4 mm nodule in the left lower lobe (image 34). 5 mm nodule in the right upper lobe (image 15). Mild centrilobular emphysema. PLEURA: No effusion or pneumothorax. Right-sided pleural calcifications. HEART AND MEDIASTINUM: Coronary artery calcifications. No pericardial effusion. Subcarinal lymph node measures 1.2 cm. Lower right paratracheal lymph node measures 1.1 cm. Thyroid unremarkable. HEPATOBILIARY: No focal liver lesion. Main portal vein is patent. Gallbladder unremarkable. No biliary ductal dilation. PANCREAS: No pancreatic ductal dilation. No pancreatic lesion. SPLEEN: No splenomegaly. ADRENALS: No nodule. KIDNEYS/URETERS: Bilateral nonobstructing renal calculi measure up to 6 mm in the superior pole left kidney and 7 mm in the lower pole right kidney. No hydronephrosis or hydroureter. Subcentimeter hypodensities both kidneys are likely cysts. PELVIC ORGANS/BLADDER: Calcifications in the prostate. Bladder is distended. GI TRACT: Focal asymmetric rectal wall thickening measuring up to 1.2 cm (axial postcontrast series image 107). Mild colonic diverticulosis. Remainder of the bowel is unremarkable. PERITONEUM/RETROPERITONEUM: No free fluid or free air. LYMPH NODES: No upper abdominal, retroperitoneal, mesenteric, or pelvic lymphadenopathy. VESSELS: Scattered aortoiliac atherosclerotic calcifications. BONES AND SOFT TISSUES: No destructive osseous lesion. Degenerative changes of the thoracolumbar spine. IMPRESSION: 1. Bilateral pulmonary nodules measure up to 1.4 cm and may represent metastatic disease. Associated enlarged mediastinal lymph nodes. 2. Nonspecific focal rectal wall thickening. Consider further evaluation with endoscopy to exclude malignancy. 3. Otherwise, no findings of metastatic disease in the abdomen or pelvis. 4. Nonobstructing bilateral renal calculi. Signed: Joey Troy MD Report Verified Date/Time:11/05/2016 16:46:08 Reading Location: [facility] C013Y CT Body Reading Room Procedure Note Interface, External Ris In - 11/05/2016 4:48 PM CDT FINAL REPORT CT OF THE CHEST, ABDOMEN, AND PELVIS CLINICAL HISTORY: Melanoma, staging TECHNIQUE: CT of the chest, abdomen, and pelvis is performed with intravenous contrast administration. Oral contrast was administered. This exam was performed according to our departmental dose-optimization program which includes automated exposure control, adjustment of the mA and/or kV according to patient size and/or use of iterative reconstruction technique. COMPARISON FILM: None DISCUSSION: LINES/TUBES: Right common femoral venous catheter. LUNGS/AIRWAYS: There is a 1.4 cm subpleural nodule in the right lower lobe (lung series image 38). There is a 4 mm nodule in the left lower lobe (image 34). 5 mm nodule in the right upper lobe (image 15). Mild centrilobular emphysema. PLEURA: No effusion or pneumothorax. Right-sided pleural calcifications. HEART AND MEDIASTINUM: Coronary artery calcifications. No pericardial effusion. Subcarinal lymph node measures 1.2 cm. Lower right paratracheal lymph node measures 1.1 cm. Thyroid unremarkable. HEPATOBILIARY: No focal liver lesion. Main portal vein is patent. Gallbladder unremarkable. No biliary ductal dilation. PANCREAS: No pancreatic ductal dilation. No pancreatic lesion. SPLEEN: No splenomegaly. ADRENALS: No nodule. KIDNEYS/URETERS: Bilateral nonobstructing renal calculi measure up to 6 mm in the superior pole left kidney and 7 mm in the lower pole right kidney. No hydronephrosis or hydroureter. Subcentimeter hypodensities both kidneys are likely cysts. PELVIC ORGANS/BLADDER: Calcifications in the prostate. Bladder is distended. GI TRACT: Focal asymmetric rectal wall thickening measuring up to 1.2 cm (axial postcontrast series image 107). Mild colonic diverticulosis. Remainder of the bowel is unremarkable. PERITONEUM/RETROPERITONEUM: No free fluid or free air. LYMPH NODES: No upper abdominal, retroperitoneal, mesenteric, or pelvic lymphadenopathy. VESSELS: Scattered aortoiliac atherosclerotic calcifications. BONES AND SOFT TISSUES: No destructive osseous lesion. Degenerative changes of the thoracolumbar spine. IMPRESSION: 1. Bilateral pulmonary nodules measure up to 1.4 cm and may represent metastatic disease. Associated enlarged mediastinal lymph nodes. 2. Nonspecific focal rectal wall thickening. Consider further evaluation with endoscopy to exclude malignancy. 3. Otherwise, no findings of metastatic disease in the abdomen or pelvis. 4. Nonobstructing bilateral renal calculi. Signed: Joey Tryo MD Report Verified Date/Time: 11/05/2016 16:46:08 Reading Location: [facility] B1 C013Y CT Body Reading Room Tissue Exam (11/05/2016 10:58 AM) Component Value Ref Range Case Report Surgical Pathology Report Case: [id number] Authorizing Provider:Bruna Middleton Collected: 11/05/2016 1058 MD Anderson Ordering Location: [place] [address] ICUReceived: 11/07/201613 Pathologist: Steve Cabrales MD Specimen:Polyp, Colon - Rectosigmoid, BX OF THE RECTOSIGMOID MASS DIAGNOSIS A. RECTOSIGMOID COLON, MASS, BIOPSY: - SUPERFICIAL FRAGMENTS OF ADENOCARCINOMA ( SEE COMMENT) - UNDERLYING INVASIVE COMPONENT CANNOT BE EXCLUDED COMMENT The biopsy consists of several fragments of superficially sampled adenocarcinoma. No definite desmoplastic stroma is seen to confidently assess invasion. Clinical and radiologic correlation is recommended. CPT Code(s) 39087 CLINICAL HISTORY Lower GI bleed SPECIMEN SOURCE Rectosigmoid mass biopsy GROSS DESCRIPTION The specimen is received in a formalin-filled container labeled with the patient's information and labeled " "rectosigmoid colon polyp" and consists of multiple fragments of tom-white soft tissue ranging from 0.1 to 0.4 cm, submitted entirely in A1. CG/ew MICROSCOPIC DESCRIPTION Performed. Specimen Performing Laboratory Tissue - Polyp, Colon - Rectosigmoid [address] [address] Calcium, Ionized (11/05/2016 4:43 AM) Component Value Ref Range Calcium, Ion 0.97 (L) 1.12 - 1.27 mmol/L pH, Blood 7.33 Specimen Performing Laboratory Blood [address] [address] Urinalysis w/Microscopic (11/05/2016 4:41 AM) Component Value Ref Range Color, UA Light Yellow Clarity, UA Clear Specific Tarzan, UA 1.012 1.001 - 1.035 pH, UA 5.5 5.0 - 8.0 Protein, UA Negative Negative Glucose, UA Negative Negative Ketones, UA Negative Negative Bilirubin, UA Negative Negative Blood, UA Negative Negative Nitrite, UA Negative Negative Leukocytes, UA Negative Negative Urobilinogen, UA 0.2 0.2 - 1.0 mg/dL RBC, UA 0 /HPF WBC, UA 1 /HPF Mucus Rare Specimen Source Specimen Performing Laboratory Urine [facility] [address] [address] XR chest 1 view portable / bedside (11/05/2016 4:20 AM) Specimen Performing Laboratory GE RIS Narrative FINAL REPORT PROCEDURE: RAD, CHEST, 1 VIEW, NON DEPT CLINICAL INFORMATION: Dyspnea COMPARISON: None FINDINGS/IMPRESSION: Cardiac and mediastinal silhouettes are within normal limits. There is no pneumothorax, pleural effusion or consolidation. Degenerative changes in the thoracic spine. Few surgical clips are present in the left neck. Signed: Miles Hayes MD Report Verified Date/Time:11/05/2016 04:40:30 Reading Location: [address] Transitional Reading Room Procedure Note Interface, External Ris In - 11/05/2016 4:42 AM CDT FINAL REPORT PROCEDURE: RAD, CHEST, 1 VIEW, NON DEPT CLINICAL INFORMATION: Dyspnea COMPARISON: None FINDINGS/IMPRESSION: Cardiac and mediastinal silhouettes are within normal limits. There is no pneumothorax, pleural effusion or consolidation. Degenerative changes in the thoracic spine. Few surgical clips are present in the left neck. Signed: Miles Hayes MD Report Verified Date/Time: 11/05/2016 04:40:30 Reading Location: [facility] C013 Transitional Reading Room Prepare Leuko-Red RBC (11/05/2016 1:44 AM) Component Value Ref Range CROSSMATCH COMPATIBLE Unit ABO A Pos UNIT NUMBER [id number] Status READY Blood Bank Product RED BLOOD CELLS PRODUCT CODE I5058A44 CROSSMATCH COMPATIBLE Unit ABO A Pos UNIT NUMBER [id number] Status READY Blood Bank Product RED BLOOD CELLS PRODUCT CODE [id number] Specimen Performing Laboratory Other SAFETRACE TX ECG 12 lead (11/05/2016 12:57 AM) Specimen Performing Laboratory GE MUSE Narrative Ventricular Rate 69 BPM Atrial Rate 69 BPM P-R Interval 172 ms QRS Duration 90 ms Q-T Interval 408 ms QTC Calculation(Bazett) 437 ms P [place] 42 degrees R [place] -41 degrees T [place] 53 degrees Normal sinus rhythm Left axis deviation Possible Anterior infarct , age undetermined Abnormal ECG No previous ECGs available Confirmed by Tenzin Mcguire Alireaz ([id number]) on 11/06/2016 9:12:58 AM Procedure Note Interface, External Ris In - 11/06/2016 9:13 AM CDT Ventricular Rate 69 BPM Atrial Rate 69 BPM P-R Interval 172 ms QRS Duration 90 ms Q-T Interval 408 ms QTC Calculation(Bazett) 437 ms P [place] 42 degrees R [place] -41 degrees T [place] 53 degrees Normal sinus rhythm Left axis deviation Possible Anterior infarct , age undetermined Abnormal ECG No previous ECGs available Confirmed by Tenzin Mcguire Alireaz ([id number]) on 11/06/2016 9:12:58 AM Type and screen, automated (11/05/2016 12:45 AM) Component Value Ref Range ABO/RH AUTOMATED (BEAKER) A POSITIVE Ab Scrn NEGATIVE Specimen Performing Laboratory Blood [address] [address] PT/aPTT (11/05/2016 12:45 AM) Component Value Ref Range Protime 14.4 11.7 - 14.7 seconds INR 1.1 <=5.9 PTT 25.1 22.5 - 36.0 seconds Specimen Performing Laboratory Blood [address] [address] Narrative RECOMMENDED COUMADIN/WARFARIN INR THERAPY RANGES STANDARD DOSE: 2.0 - 3.0 Includes: PROPHYLAXIS for venous thrombosis, systemic embolization; TREATMENT for venous thrombosis and/or pulmonary embolus. HIGH RISK: Target INR is 2.5-3.5 for patients with mechanical heart valves. CBC with platelet count + automated diff (11/05/2016 12:45 AM) Component Value Ref Range WBC 14.7 (H) 4.0 - 10.0 K/L RBC 4.41 4.20 - 5.80 M/L Hemoglobin 13.8 13.0 - 16.8 GM/DL Hematocrit 41.7 40.0 - 50.0 % MCV 94.5 82.0 - 98.0 fL MCH 31.3 27.0 - 33.0 pg MCHC 33.1 32.0 - 36.0 GM/DL RDW 12.5 10.3 - 14.2 % Platelets 263 150 - 430 K/CU MM MPV 6.2 (L) 6.5 - 10.5 fL nRBC 0 0 - 0 /100 WBC % Neutros 75 % % Lymphs 18 % % Monos 6 % % Eos 1 % % Baso 0 % # Neutros 11.10 (H) 1.80 - 8.00 K/L # Lymphs 2.64 1.48 - 4.50 K/L # Monos 0.89 0.00 - 1.30 K/L # Eos 0.12 0.00 - 0.50 K/L # Baso 0.03 0.00 - 0.20 K/L Specimen Performing Laboratory Blood [address] [address] Narrative 0.00 Troponin I (11/05/2016 12:45 AM) Component Value Ref Range Troponin I <0.01 0.00 - 0.03 ng/mL Specimen Performing Laboratory Blood [address] [address] Narrative Effective 04/08/2014: Reference Range Change New: 0.00-0.03 Previous 0.00-0.15 Troponin I (TnI) levels must be interpreted in the context of the presenting symptoms and the clinical findings. Elevated TnI levels indicate myocardial damage, but are not specific for ischemic heart disease. Elevated TnI levels are seen in patients with other cardiac conditions (including myocarditis and congestive heart failure), and slight TnI elevations occur in patients with other conditions, including sepsis, renal failure, acidosis, acute neurological disease, and persistent tachyarrhythmia. Blood culture (11/05/2016 12:45 AM) Component Value Ref Range Result No growth in 5 days Specimen Performing Laboratory Blood - Central Venous Line [address] [address] Prothrombin time/INR (11/05/2016 12:45 AM) Component Value Ref Range Protime 14.4 11.7 - 14.7 seconds INR 1.1 <=5.9 Specimen Performing Laboratory Blood [address] [place] [address] Narrative RECOMMENDED COUMADIN/WARFARIN INR THERAPY RANGES STANDARD DOSE: 2.0 - 3.0 Includes: PROPHYLAXIS for venous thrombosis, systemic embolization; TREATMENT for venous thrombosis and/or pulmonary embolus. HIGH RISK: Target INR is 2.5-3.5 for patients with mechanical heart valves. CBC with platelet count + automated diff (11/05/2016 12:45 AM) Specimen Performing Laboratory Blood Narrative The following orders were created for panel order CBC with platelet count + automated diff. Procedure Abnormality Status --------- ------ CBC with platelet count ...[[id number]]AbnormalFinal result Please view results for these tests on the individual orders. Creatine Kinase (CK), Total and MB (11/05/2016 12:45 AM) Component Value Ref Range Total CK 40 29 - 200 U/L CK-MB 0.5 0.0 - 6.6 ng/mL MB Relative Index 1.3 % Specimen Performing Laboratory Blood [address] [address] Narrative Effective 04/08/2014: CK-MB Reference Range Change New: 0.0-6.6Previous: 0.0-4.9 CK-MB Reference Range: <6.7Normal 6.7-10.0Borderline >10.0 Abnormal Hepatic function panel (11/05/2016 12:45 AM) Component Value Ref Range Protein, Total 5.7 (L)Comment: Specimen slightly hemolyzed 6.0 - 8.3 gm/dL Albumin 3.5Comment: Specimen slightly hemolyzed 3.5 - 5.0 g/dL Total Bilirubin 0.6Comment: Specimen slightly hemolyzed 0.2 - 1.2 mg/dL Bilirubin, Direct 0.2Comment: Specimen slightly hemolyzed 0.1 - 0.5 mg/dL Alkaline Phosphatase 59 40 - 150 U/L AST 18Comment: Specimen slightly hemolyzed 5 - 34 U/L ALT 13Comment: Specimen slightly hemolyzed 6 - 55 U/L Specimen Performing Laboratory Blood [address] [address] after 10/02/2016
[2017-10-03] MEDS ORDERED: Ringers Lactate 1,000 ML IV ONE (09:06)
[2017-10-03] MEDS ORDERED: CEFAZOLIN/SWI 1gm 1 GM/10 ML SYR ONE (09:07)
[2017-10-03 09:18] LABS: Absolute Lymphocytes (CBC) 1.9 K/uL (0.7-4.9); Absolute Neutrophil 4.7 K/uL (1.8-8.0); Basophils % 0.4 % (0-1.3); Eosinophils % 2.8 % (0-4.4); Hematocrit 43.5 % (39.6-49.0); Lymphocytes % 24.8 % (15.3-44.8); MCH 30.2 pg (27.0-35.0); MCV 91.3 fL (80-100); MPV 6.4 fL (7.6-11.3); Monocytes % 12.3 % (3.3-12.3); RBC Red Blood Cell Count 4.77 M/uL (4.33-5.43)
[2017-10-03 09:31] LABS: Potassium 3.7 mEq/L (3.6-5.0)
[2017-10-03] MEDS ORDERED: FENTANYL CITR 100 MCG/2 ML ONE (09:37)
[2017-10-03] MEDS ORDERED: MIDAZOLAM HCL 2 MG/2 ML INJ ONE ×2 (09:37→10:19)
--- NOTE | 2017-10-03 09:41 | RAD REPORT ---
EXAM DESCRIPTION: RAD - Chest Pa And Lat (2 Views) - 10/03/2017 9:14 am CLINICAL HISTORY: Preop chest, skin cancer removal COMPARISON: December 2016 TECHNIQUE: PA and lateral views of the chest were obtained. FINDINGS: The lungs are fibrotic as a baseline. Interstitial pattern is similar to prior imaging. No superimposed failure, infiltrate or mass. Right jugular Port-A-Cath is in place. Trachea is midline. Heart size is normal and central vasculature is within normal limits. No pleural effusion or pneu mothorax seen. No acute bone finding identified. Patient has multiple old left-sided rib fractures. Scoliotic changes in the spine are present along with accentuated kyphosis, endplate spurring and und erlying osteopenia. No aortic abnormality. IMPRESSION: Fibrotic lung pattern with no acute cardiopulmonary finding. The above detailed findings are not substantially different from the comparison.
[2017-10-03 11:47] VITALS: TEMP 97.3
[2017-10-03 12:04] VITALS: BP 129/67; O2SAT 93
--- NOTE | 2017-10-03 15:28 | EKG ---
Test Date: 2017-10-03 Test Time: 08:50:36 Mechanic: RAMONA MEASUREMENT RESULTS: Intervals: Rate: 55 NH: 186 QRSD: 100 QT: 436 QTc: 417 [place]: P: 36 NH: 186 QRS: -41 T: 56 INTERPRETIVE STATEMENTS: Sinus bradycardia Left axis deviation Abnormal ECG Compared to ECG 12/28/2016 09:32:19 Left-axis deviation now present Myocardial infarct finding no longer present Electronically Signed On 10-03-17 15:27:00 CDT by Rich Isaacs
--- NOTE | 2017-10-04 01:20 | OP ---
Date of Procedure: 10/03/2017 Surgeon: Bhupinder Amador MD Preoperative Diagnosis: Back mass x3. Postoperative Diagnosis: Back mass x3. Procedure Performed: Wide excision of right back, middle back, and left back masses, 4 x 2 cm each, and with layered closure on each. Estimated Blood Loss: Minimal. Specimen: Right back mass, which was basal cell carcinoma. Margins were free. Middle back, which w as a benign cyst; and left back, which was mostly sun damaged skin. Findings: As above. Anesthesia: MAC. Complications: None. Disposition: The patient tolerated the procedure in stable condition and was taken to Recovery in go od general condition. Operative Note: The patient was brought to the OR and placed in supine position. MAC anesthesia was begun. The patient was placed in left lateral position and prepped and draped in the usual sterile fashion. Then, 3 incisions were made, 4 x 2 cm each in the right and the left back. Lesions were co ncerning for skin cancer; and therefore, frozen sections were obtained on both. The right upper back was basal cell carcinoma. The margins were free. The left back mass was solar elastosis mostly and no evidence of skin cancer. The middle back was a benign cyst. All 3 wounds more mobilize for a te nsion-free closure. Then, 2-0 chromic was used to close the subcutaneous tissue and 3-0 nylon used t o close the skin. Sterile dressing was applied. The patient was awakened and taken to Recovery in g ood general condition. DISCHARGE NOTE The patient will go to Day Surgery and home when stable. Disposition: To home. Condition: Stable. Discharge Instructions: Resume home medications and diet. Activity as tolerated. No heavy lifting. Remove outer dressing in 2 days. Shower. Keep wound clean and dry. Follow up in my office in 9 d ays. Call for appointment. Tylenol No. 3 one tablet p.o. q.4 h. p.r.n. pain and Keflex 500 mg p.o. q.6 h. /MODL Voice ID: [id number] Report ID: [id number]
== END 2017-10-03 12:06 | disposition home or self-care (01) ==
LOC: OR 08:37
PROVIDERS: ATTEND Surgery
PROC: 0JB70ZZ Excision of Back Subcutaneous Tissue and Fascia, Open Approach (ICD-10-PCS; 2017-10-03)
PROC: 0JB70ZZ Excision of Back Subcutaneous Tissue and Fascia, Open Approach (ICD-10-PCS; 2017-10-03)
PROC: 0HB6XZZ Excision of Back Skin, External Approach (ICD-10-PCS; principal; 2017-10-03 10:00)
DX: C44.519 Basal cell carcinoma of skin of other part of trunk (principal); L72.0 Epidermal cyst; L57.8 Other skin changes due to chronic exposure to nonionizing radiation; J44.9 Chronic obstructive pulmonary disease, unspecified; I10 Essential (primary) hypertension; I25.2 Old myocardial infarction; K21.9 Gastro-esophageal reflux disease without esophagitis; Z80.1 Family history of malignant neoplasm of trachea, bronchus and lung; Z80.8 Family history of malignant neoplasm of other organs or systems
CPT/HCPCS: 11404 ×2; 11604; 36415; 71046; 80048; 85025; 88304; 88305; 88331; 88332; 93005; J0690; J2250; J3010

== ENCOUNTER 2020-03-20 12:07 | Emergency (ER) | payer OTHER ==
--- OUTSIDE RECORDS SUMMARY | 2020-03-20 12:09 | XMS REPORT | Clinical Summary ---
:1940 Author Organization [facility] Address [address] [place] [address] Care Team Providers Name Role Phone Asked, Pcp Primary Care Provider Unavailable Allergies No Known Active Allergies Medications Medication Sig Dispensed Refills Start Date End Date Status CLOPIDOGREL BISULFATE Take 75 mg by 0 Active (CLOPIDOGREL ORAL) mouth daily. SIMVASTATIN ORAL Take 80 mg by 0 Active mouth daily. metoprolol succinate XL Take 50 mg by 0 Active (TOPROL-XL) 50 mg 24 hr mouth daily. tablet Active Problems Problem Noted Date Attention to ileostomy 07/28/2017 CA of rectum 04/28/2017 Cancer Staging: Pathologic stage from : Stage I (yT2, N0, cM0) - Signed by Reid Funes MD on 05/10/2017 Surgical History Surgery Date Site/Laterality Comments PORTACATH PLACEMENT RIGHT CHEST. right chest wall last infu charo 12/16/16 for keyon gs last chemo and radiat ion 2 months ago CORONARY STENT PLACEMENT 05/22/2007 - 05/21/2008 EXCISION, TUMOR OR MASS, 04/05/2017 Anus/N/A Procedu re: ANAL EXAM RECTAL UNDER ANESTHESIA , PROCTOSCOPY; Gr rgeon: Reid Funes MD; Location: [facility] MAIN OR; Service: Co lakia and Rectal Surgery; Laterality: N/A; RESECTION, COLON, LOW 04/28/2017 Abdomen/N/A Procedure: LOW ANTERIOR ANTERIOR RESECTION W/ LOO P ILEOSTOMY.; Catarino geon: Reid Funes MD; Location: [facility] MAIN OR; Service: Co lakia and Rectal Surgery; Laterality: N/A; Medical devices from this surgery are in t he Implants section . ILEOSTOMY, TAKE-DOWN 07/28/2017 Abdomen/N/A Procedure: ILEOSTOMY CLOSURE; Surgeo n: Ally Funes MD; Location: [facility] IN OR; Service: Colon a nd Rectal Surgery; Latera lity: N/A; Medical History Medical History Date Comments Hypertension Hyperlipemia Myocardial infarction (HCC) 2006 s/p stent x1 CAD (coronary artery disease) Anesthesia npap/nfhap, sob and denies chestpain COPD (chronic obstructive pulmonary exp sob when climbing stairs disease) (HCC) Melanoma (HCC) 2017 current immunotherap y tx Lung cancer (HCC) 2017 s/p XRT Rectal cancer (HCC) 2017 s/p chemoradiation Arthritis History of transfusion Dental bridge present LOWER Wears glasses 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) Social History Tobacco Use Types Packs/Day Years Used Date Former Smoker Cigarettes 30 Smokeless Tobacco: Former User Chew Q uit: 03/22/1995 Comments: stopped 1989 Alcohol Use Drinks/Week oz/Week Comments No Sex Assigned at Date Recorded Not on file Last Filed Vital Signs Not on file Plan of Treatment Health Maintenance Due Date Last Done Comments SHINGLES VACCINES (#1) 1992 65+ PNEUMOCOCCAL VACCINE (1 of 1 - PPSV23) 2007 INFLUENZA VACCINE 12/21/2019 Implants Implanted Type Area Tube Washer Device Shelf Model / Identifier Expiration Serial / Date Lot Drain Wnd 20cm 10mm Flat Hbls Full Perfrtn Suzanna - [id number] Surgi ryan [employer] [id number] / Implanted: Qty: 1 on 04/28/2017 by Ally Funes MD at [facility] Implants; DIVISION / Expanders; Extenders; Surgical Wires Description:RHIS IS NOT AN IMPLANT, IT I S A DRAIN Results Not on fileafter 03/20/2019 Advance Directives For more information, please contact: [phone] Type Date Recorded 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
--- OUTSIDE RECORDS SUMMARY | 2020-03-20 12:09 | XMS REPORT | Clinical Summary ---
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 Social History Tobacco Use Types Packs/Day Years Used Date Former Smoker 15 Quit: 1989 Sex Assigned at Date Recorded Not on file Last Filed Vital Signs Not on file Plan of Treatment Not on file Results Not on fileafter 03/20/2019 Insurance Payer Benefit Plan Subscriber ID Effective Phone Address Typ e / Group Dates AETNA - AETNA [id number] 2016-Pres [phone] [address] [employer] MEDICARE MGD MEDICARE HMO ent [id number] [place] [address] Advance Directives For more information, please contact: [phone] Code Status Date Activated Date Inactivated Comments Full Code 11/05/2016 12:38 AM 11/07/2016 7:04 PM This code status was determined by: Patient
--- OUTSIDE RECORDS SUMMARY | 2020-03-20 12:10 | XMS REPORT | Continuity of Care Document ---
:1940 Author Organization [facility] t Address [address] [place] [address] Care Team Providers Name Role Phone Asked, Pcp Primary Care Physician Unavailable AYAZ VALDOVINOS Attending Clinician Unavailable AYAZ VALDOVINOS Admitting Clinician Unavailable Problems Condition Condition Condition Status Onset Resolution Last Treating Co mments Source Name Details Category Date Date Treatment Clinician Date Attention Attention Disease Active Deja ston to to 07-28 [facility] ileostomy ileostomy 00:00: st 00 CA of CA of Disease Active 2016-05 [facility]hn rectum rectum 06-29 [facility] 00:00: st 00 Lower GI [facility] Disease [facility] 00 [place] Hypocalcem Hypocalcem Disease Active [facility] ia 11[facility]05 [facility] 00 [place] Elevated Elevated Disease [facility]ine [facility]ine 11-05 - kinase kinase 00:[facility]: [facility] Center Hyperchlor Hyperchlor Disease Active [facility] emia emia 11-05 [facility] Coronary Coronary Disease [facility] artery [facility] - disease disease 00:00: Medical involving involving [facility] [place] coronary coronary artery of artery of [place] heart heart without without angina angina pectoris pectoris Metastatic Metastatic Disease Active [facility] melanoma melanoma 11-05 [facility] - to lung to lung 00:00: Medical 00 Center Allergies, Adverse Reactions, Alerts This patient has no known allergies or adverse reactions. Social History Social Habit Start Date Stop Date Quantity Comments Source History of tobacco Cigarette Smoker Grahn use Nondenominational Sex Assigned At [facility] Cigarettes smoked 2017-08-01 2017-08-01 Grahn current (pack per 00:00:00 00:00:[address] ) - Reported Cigarette 2017-08-01 2017-08-01 Grahn pack-years 00:00:00 00:00:00 Nondenominational Tobacco use and 2017-08-01 2017-08-01 Former user Grahn exposure 00:00:00 00:00:00 [employer]ational Alcohol intake 2017-08-01 2017-08-01 Current Grahn 00:00:00 00:00:00 non-drinker of Nondenominational alcohol (finding) Tobacco Comment 2017-04-05 2017-04-05 stopped 1990 Grahn 00:00:00 00:00:00 [employer]ondenominational Smoking Status Start Date Stop Date Source Former smoker 2016-11-07 00:00:00 2016-11-07 00:00:00 [facility] Medications Ordered Filled Start Stop Current Ordering Indication Dosage Frequency Signature Comments Components Source Medication Medication Date Date Medication? Clinician (SIG) Name Name CLOPIDOGREL Yes 75mg QD Take 75 mg Roberts BISULFATE 3-12 by mouth Method i (CLOPIDOGRE 14:55: daily. st L ORAL) 06 SIMVASTATIN Yes 80mg QD Take 80 mg Roberts ORAL 3-12 by mouth Methodi 14:55: daily. st 06 metoprolol Yes 50mg QD Take 50 mg [place] succinate 3-12 by mouth Method i XL 14:55: daily. st (TOPROL-XL) 06 50 mg 24 hr tablet Procedures This patient has no known procedures. Plan of Care Planned Activity Planned Date Details Comments Source Future Scheduled 2019-12-21 INFLUENZA VACCINE [place] Test 00:00:00 [code = INFLUENZA VACCINE] Future Scheduled 2007 65+ PNEUMOCOCCAL Grahn [employer]ondenominational Test 00:00:00 VACCINE (1 of 1 - PPSV23) [code = 65+ PNEUMOCOCCAL VACCINE (1 of 1 - PPSV23)] Future Scheduled 1992 SHINGLES VACCINES (#1) [place] Test 00:00:00 [code = SHINGLES VACCINES (#1)] Results Test Description Test Time Test Comments Results Result Comments Source BLOOD CULTURE 2016-11-10 11:01:00 Test Item Value Reference Range Interpretation Comme nts CULTURE (BEAKER) (test code = 1095) No growth in 5 days TISSUE [id number] 19:27:00Surgical Pathology Report Case: [id number] Authorizing Provider: Bruna Hauser Collected: 11/05/2016 1058 MD Anderson OrderingLocation: [place] [address] ICU Received: 11/07/2016 0813 Pathologist: Steve Cabrales MD Specimen: Polyp, Colon - Rectosigmoid, BX OF THE RECTOSIGMOID MASS A. RECTOSIGMOID COLON, MASS, BIOPSY: - SUPERFICIAL FRAGMENTS OF ADENOCARCINOMA ( SEE COMMENT) - UNDERLYING INVASIVE COMPONENT CANNOT BE EXCLUDED The biopsy consists of several fragments of superficially sampled adenocarcinoma. No definite desmoplastic stroma is seen to confidently assess invasion. Clinical and radiologic correlation is recommended.[id number] GI bleedRectosigmoid mass biopsy The specimen is received in a formalin-filled containerlabeled with the patient's information and labeled " "rectosigmoid colon polyp" and consists of multiple fragments of tom-white soft tissue ranging from 0.1 to 0.4 cm, submitted entirely in A1. CG/ew Pe rformed.BASIC METABOLIC [id number] 07:03:00 Test Item Value Reference Range Interpretation Comments SODIUM (BEAKER) 138 meq/L 136-145 (test code = 381) POTASSIUM (BEAKER) 3.5 meq/L 3.5-5.1 (test code = 379) CHLORIDE (BEAKER) 106 meq/L 98-107 (test code = 382) CO2 (BEAKER) (test 25 meq/L 22-29 code = 355) BLOOD UREA NITROGEN 11 mg/dL 7-21 (BEAKER) (test code = 354) CREATININE (BEAKER) 0.99 mg/dL 0.57-1.25 (test code = 358) GLUCOSE RANDOM 102 mg/dL 70-105 (BEAKER) (test code = 652) CALCIUM (BEAKER) 8.1 mg/dL 8.4-10.2 L (test code = 697) EGFR (BEAKER) (test 74 mL/min/1.73 ESTIMA SANTY GFR IS code = 1092) sq m NOT ACCURATE CREATININE CLEARANCE IN PREDICTING GLOMERULAR FILTRATION RATE . ESTIMATED GFR I S NOT APPLICABLE FOR DIALYSIS PATIEN TS. CBC (HEMOGRAM ONLY)2016-11-07 06:42:00 Test Item Value Reference Range Interpretation Comments WHITE BLOOD CELL COUNT (BEAKER) 11.5 K/ L 4.0-10.0 H (test code = 775) RED BLOOD CELL COUNT (BEAKER) 3.73 M/ L 4.20-5.80 L (test code = 761) HEMOGLOBIN (BEAKER) (test code = 11.3 GM/DL 13.0-16.8 L 410) HEMATOCRIT (BEAKER) (test code = 34.8 % 40.0-50.0 L 411) MEAN CORPUSCULAR VOLUME (BEAKER) 93.5 fL 82.0-98.0 (test code = 753) MEAN CORPUSCULAR HEMOGLOBIN 30.4 pg 27.0-33.0 (BEAKER) (test code = 751) MEAN CORPUSCULAR HEMOGLOBIN CONC 32.5 GM/DL 32.0-36.0 (BEAKER) (test code = 752) RED CELL DISTRIBUTION WIDTH 14.0 % 10.3-14.2 (BEAKER) (test code = 412) PLATELET COUNT (BEAKER) (test 219 K/CU MM 150-430 code = 756) MEAN PLATELET VOLUME (BEAKER) 6.0 fL 6.5-10.5 L (test code = 754) NUCLEATED RED BLOOD CELLS 0 /100 WBC 0-0 (BEAKER) (test code = 413) 0.00BASIC METABOLIC [id number] 05:54:00 Test Item Value Reference Range Interpretation Comments SODIUM (BEAKER) 141 meq/L 136-145 (test code = 381) POTASSIUM (BEAKER) 4.1 meq/L 3.5-5.1 Specimen slightly (test code = 379) hemolyzed CHLORIDE (BEAKER) 111 meq/L 98-107 H (test code = 382) CO2 (BEAKER) (test 24 meq/L 22-29 code = 355) BLOOD UREA NITROGEN 10 mg/dL 7-21 (BEAKER) (test code = 354) CREATININE (BEAKER) 0.88 mg/dL 0.57-1.25 Specimen slightly (test code = 358) hemolyzed GLUCOSE RANDOM 95 mg/dL 70-105 (BEAKER) (test code = 652) CALCIUM (BEAKER) 8.1 mg/dL 8.4-10.2 L (test code = 697) EGFR (BEAKER) (test 85 mL/min/1.73 ESTIMA SANTY GFR IS code = 1092) sq m NOT ACCURATE CREATININE CLEARANCE IN PREDICTING GLOMERULAR FILTRATION RATE . ESTIMATED GFR I S NOT APPLICABLE FOR DIALYSIS PATIEN TS. CBC (HEMOGRAM ONLY)2016-11-06 05:38:00 Test Item Value Reference Range Interpretation Comments WHITE BLOOD CELL COUNT (BEAKER) 12.6 K/ L 4.0-10.0 H (test code = 775) RED BLOOD CELL COUNT (BEAKER) 3.74 M/ L 4.20-5.80 L (test code = 761) HEMOGLOBIN (BEAKER) (test code = 11.3 GM/DL 13.0-16.8 L 410) HEMATOCRIT (BEAKER) (test code = 35.0 % 40.0-50.0 L 411) MEAN CORPUSCULAR VOLUME (BEAKER) 93.6 fL 82.0-98.0 (test code = 753) MEAN CORPUSCULAR HEMOGLOBIN 30.3 pg 27.0-33.0 (BEAKER) (test code = 751) MEAN CORPUSCULAR HEMOGLOBIN CONC 32.4 GM/DL 32.0-36.0 (BEAKER) (test code = 752) RED CELL DISTRIBUTION WIDTH 14.1 % 10.3-14.2 (BEAKER) (test code = 412) PLATELET COUNT (BEAKER) (test 215 K/CU MM 150-430 code = 756) MEAN PLATELET VOLUME (BEAKER) 6.5 fL 6.5-10.5 (test code = 754) NUCLEATED RED BLOOD CELLS 0 /100 WBC 0-0 (BEAKER) (test code = 413) 0.00HEMOGLOBIN AND [id number] 00:16:00 Test Item Value Reference Range Interpretation Comments HEMOGLOBIN (BEAKER) (test code = 9.8 GM/DL 13.0-16.8 L 410) HEMATOCRIT (BEAKER) (test code = 30.4 % 40.0-50.0 L 411) CARCINOEMBRYONIC ANTIGEN (CEA)2016-11-05 17:22:00 Test Item Value Reference Range Interpretation Comments CARCINOEMBRYONIC ANTIGEN (BEAKER) 1.7 ng/mL 0.0-5.0 (test code = 685) HEMOGLOBIN AND [id number] 16:51:00 Test Item Value Reference Range Interpretation Comments HEMOGLOBIN (BEAKER) (test code = 11.8 GM/DL 13.0-16.8 L 410) HEMATOCRIT (BEAKER) (test code = 37.0 % 40.0-50.0 L 411) HEMOGLOBIN AND [id number] 07:34:00 Test Item Value Reference Range Interpretation Comments HEMOGLOBIN (BEAKER) (test code = 12.1 GM/DL 13.0-16.8 L 410) HEMATOCRIT (BEAKER) (test code = 37.6 % 40.0-50.0 L 411) URINALYSIS W/ [id number] 07:10:00 Test Item Value Reference Range Interpretation Comments COLOR (BEAKER) (test code = 470) Light Yellow CLARITY (BEAKER) (test code = Clear 469) SPECIFIC GRAVITY UA (BEAKER) 1.012 1.001-1.035 (test code = 468) PH UA (BEAKER) (test code = 467) 5.5 5.0-8.0 PROTEIN UA (BEAKER) (test code = Negative Negative 464) GLUCOSE UA (BEAKER) (test code = Negative Negative 365) KETONES UA (BEAKER) (test code = Negative Negative 371) BILIRUBIN UA (BEAKER) (test code Negative Negative = 462) BLOOD UA (BEAKER) (test code = Negative Negative 461) NITRITE UA (BEAKER) (test code = Negative Negative 465) LEUKOCYTE ESTERASE UA (BEAKER) Negative Negative (test code = 466) UROBILINOGEN UA (BEAKER) (test 0.2 mg/dL 0.2-1.0 code = 463) RBC UA (BEAKER) (test code = 0 /HPF 519) WBC UA (BEAKER) (test code = 1 /HPF 520) MUCUS (BEAKER) (test code = Rare 1574) SOURCE(BEAKER) (test code = 7296) CALCIUM, [id number] 05:43:00 Test Item Value Reference Range Interpretation Comments CALCIUM IONIZED (BEAKER) (test 0.97 mmol/L 1.12-1.27 L code = 698) PH, BLOOD (BEAKER) (test code = 7.33 1810) CREATINE KINASE (CK), TOTAL AND [id number] 01:37:00 Test Item Value Reference Range Interpretation Comments CREATINE KINASE TOTAL (BEAKER) 40 U/L 29-200 (test code = 380) CREATINE KINASE-MB (BEAKER) (test 0.5 ng/mL 0.0-6.6 code = 750) CREATINE KINASE-MB INDEX (BEAKER) 1.3 % (test code = 395) Effective 04/08/2014: CK-MB Reference Range ChangeNew: 0.0-6.6 Previous: 0.0-4.9CK-MB Reference Range:<6.7 Normal6.7-10.0 Borderline>10.0 AbnormalTROPONIN [id number] 01:37:00 Test Item Value Reference Range Interpretation Comments TROPONIN I (BEAKER) (test code = 397) < ng/mL 0.00-0.03 Effective 04/08/2014: Reference Range [...] acute neurological disease, and persistent tachyarrhythmia.BASIC METABOLIC [id number] 01:30:00 Test Item Value Reference Range Interpretation Comments SODIUM (BEAKER) 141 meq/L 136-145 (test code = 381) POTASSIUM (BEAKER) 4.4 meq/L 3.5-5.1 Specimen slightly (test code = 379) hemolyzed CHLORIDE (BEAKER) 111 meq/L 98-107 H (test code = 382) CO2 (BEAKER) (test 19 meq/L 22-29 L code = 355) BLOOD UREA NITROGEN 17 mg/dL 7-21 (BEAKER) (test code = 354) CREATININE (BEAKER) 1.28 mg/dL 0.57-1.25 H Specimen slightly (test code = 358) hemolyzed GLUCOSE RANDOM 133 mg/dL 70-105 H (BEAKER) (test code = 652) CALCIUM (BEAKER) 8.1 mg/dL 8.4-10.2 L (test code = 697) EGFR (BEAKER) (test 55 mL/min/1.73 ESTIMA SANTY GFR IS code = 1092) sq m NOT ACCURATE CREATININE CLEARANCE IN PREDICTING GLOMERULAR FILTRATION RATE . ESTIMATED GFR I S NOT APPLICABLE FOR DIALYSIS PATIEN TS. HEPATIC FUNCTION [id number] 01:30:00 Test Item Value Reference Range Interpretation Comments TOTAL PROTEIN (BEAKER) 5.7 gm/dL 6.0-8.3 L Speci men slightly (test code = 770) hemolyzed ALBUMIN (BEAKER) (test 3.5 g/dL 3.5-5.0 Speci men slightly code = 1145) hemolyzed BILIRUBIN TOTAL 0.6 mg/dL 0.2-1.2 Specimen sli ghtly (BEAKER) (test code = hemoly zed 377) BILIRUBIN DIRECT 0.2 mg/dL 0.1-0.5 Specimen sl ightly (BEAKER) (test code = hemoly zed 706) ALKALINE PHOSPHATASE 59 U/L 40-150 (BEAKER) (test code = 346) AST (SGOT) (BEAKER) 18 U/L 5-34 Specimen slightly (test code = 353) hemolyzed ALT (SGPT) (BEAKER) 13 U/L 6-55 Specimen slightly (test code = 347) hemolyzed CBC W/PLT COUNT & AUTO [id number] 01:17:00 Test Item Value Reference Range Interpretation Comments WHITE BLOOD CELL COUNT (BEAKER) 14.7 K/ L 4.0-10.0 H (test code = 775) RED BLOOD CELL COUNT (BEAKER) 4.41 M/ L 4.20-5.80 (test code = 761) HEMOGLOBIN (BEAKER) (test code = 13.8 GM/DL 13.0-16.8 410) HEMATOCRIT (BEAKER) (test code = 41.7 % 40.0-50.0 411) MEAN CORPUSCULAR VOLUME (BEAKER) 94.5 fL 82.0-98.0 (test code = 753) MEAN CORPUSCULAR HEMOGLOBIN 31.3 pg 27.0-33.0 (BEAKER) (test code = 751) MEAN CORPUSCULAR HEMOGLOBIN CONC 33.1 GM/DL 32.0-36.0 (BEAKER) (test code = 752) RED CELL DISTRIBUTION WIDTH 12.5 % 10.3-14.2 (BEAKER) (test code = 412) PLATELET COUNT (BEAKER) (test 263 K/CU MM 150-430 code = 756) MEAN PLATELET VOLUME (BEAKER) 6.2 fL 6.5-10.5 L (test code = 754) NUCLEATED RED BLOOD CELLS 0 /100 WBC 0-0 (BEAKER) (test code = 413) NEUTROPHILS RELATIVE PERCENT 75 % (BEAKER) (test code = 429) LYMPHOCYTES RELATIVE PERCENT 18 % (BEAKER) (test code = 430) MONOCYTES RELATIVE PERCENT 6 % (BEAKER) (test code = 431) EOSINOPHILS RELATIVE PERCENT 1 % (BEAKER) (test code = 432) BASOPHILS RELATIVE PERCENT 0 % (BEAKER) (test code = 437) NEUTROPHILS ABSOLUTE COUNT 11.10 K/ L 1.80-8.00 H (BEAKER) (test code = 670) LYMPHOCYTES ABSOLUTE COUNT 2.64 K/ L 1.48-4.50 (BEAKER) (test code = 414) MONOCYTES ABSOLUTE COUNT (BEAKER) 0.89 K/ L 0.00-1.30 (test code = 415) EOSINOPHILS ABSOLUTE COUNT 0.12 K/ L 0.00-0.50 (BEAKER) (test code = 416) BASOPHILS ABSOLUTE COUNT (BEAKER) 0.03 K/ L 0.00-0.20 (test code = 417) 0.00PT/[id number] 01:16:00 Test Item Value Reference Range Interpretation Comments PROTIME (BEAKER) (test code = 14.4 seconds 11.7-14.7 759) INR (BEAKER) (test code = 370) 1.1 <=5.9 PARTIAL THROMBOPLASTIN TIME 25.1 seconds 22.5-36.0 (BEAKER) (test code = 760) RECOMMENDED COUMADIN/WARFARIN INR THERAPY RANGESSTANDARD DOSE: 2.0 - 3.0 Includes: PROPHYLAXIS forvenous thrombosis, systemic embolization; TREATMENT for venous thrombosis and/or pulmonary embolus.HIGH RISK: Target INR is 2.5-3.5 for patients with mechanical heart valves.PROTHROMBIN TIME/[id number] 01:15:00 Test Item Value Reference Range Interpretation Comments PROTIME (BEAKER) (test code = 14.4 seconds 11.7-14.7 759) INR (BEAKER) (test code = 370) 1.1 <=5.9 RECOMMENDED COUMADIN/WARFARIN INR THERAPY RANGESSTANDARD DOSE: 2.0 - 3.0 Includes: PROPHYLAXIS forvenous thrombosis, systemic embolization; TREATMENT for venous thrombosis and/or pulmonary embolus.HIGH RISK: Target INR is 2.5-3.5 for patients with mechanical heart valves.
[2020-03-20 13:07] LABS: Absolute Lymphocytes (CBC) 1.9 K/uL (0.7-4.9); Basophils % 0.4 % (0-1.3); Hematocrit 42.7 % (39.6-49.0); MPV 6.3 fL (7.6-11.3); RBC Red Blood Cell Count 4.61 M/uL (4.33-5.43)
[2020-03-20 13:28] LABS: ALT/SGPT 26 U/L (12-78); AST/SGOT 23 U/L (15-37); Albumin 3.2 g/dL (3.4-5.0); Alkaline Phosphatase 160 U/L (45-117); BUN Blood Urea Nitrogen 8 mg/dL (7-18); Bicarbonate 28 mmol/L (21-32); Bilirubin Direct 0.4 mg/dL (0-0.2); Bilirubin Total 0.9 mg/dL (0.2-1.0); Glucose Level 117 mg/dL (74-106); Magnesium 2.4 mg/dL (1.8-2.4); NT PRO-BNP 166 pg/mL (<450); Potassium 4.3 mmol/L (3.5-5.1); Protein, Total 7.8 g/dL (6.4-8.2); Sodium Level 136 mmol/L (136-145); Troponin (Emerg Dept Use Only) < 0.02 ng/mL (0.0-0.045)
--- NOTE | 2020-03-20 13:58 | RAD REPORT ---
EXAM DESCRIPTION: CT - Head Brain Wo Cont - 03/20/2020 1:49 pm CLINICAL HISTORY: Dizziness COMPARISON: 2017 TECHNIQUE: Computed axial tomography of the head was obtained. IV contrast was not requested. All CT scans are performed using dose optimization technique as appropriate and may include automated exposure control or mA/KV adjustment according to patient size. FINDINGS: An intracranial bleed is not seen . The ventricles are normal in caliber. No extra-axial fluid collection is noted. Mild low-density areas within periventricular, deep and subcortical white matter likely represent isc hemic changes secondary to small vessel disease. Fluid within the sinuses/ mastoids is not seen. IMPRESSION: No acute intracranial abnormality is seen. If patient's symptoms persist MRI of the bra in would be recommended.
--- NOTE | 2020-03-20 13:59 | RAD REPORT ---
[facility] DES[facility] pm CLINICAL HISTORY: C43.4, C78.01 COMPARISON: December 2019 FINDINGS: Right upper lobe lung nodule appears slightly enlarged Left lung appears clear of acute infiltrate. Old left rib fractures with bone bridging noted The heart is normal size. A central venous catheter has its tip the superior vena cava
--- NOTE | 2020-03-20 14:07 | RAD REPORT ---
EXAM DESCRIPTION: CT - Thorax W/ Con - 03/20/2020 1:49 pm CLINICAL HISTORY: C43.4, C78.01 COMPARISON: December 2019 TECHNIQUE: Computed axial tomography of the chest was obtained. 100 cc Isovue 300 was administered i ntravenously. All CT scans are performed using dose optimization technique as appropriate and may include automated exposure control or mA/KV adjustment according to patient size. FINDINGS: 21 millimeter posterior right upper lobe nodule mildly increased in size. Previously it me asured 19 millimeters Previously described 9 millimeter nodule abutting posteromedial right pleural extending into the post erior mediastinal fat has resolved Pretracheal lymph node measures 10 millimeters. Previously it measured 9 millimeters. Additional smal ler mediastinal lymph nodes noted. No hilar lymphadenopathy A pleural effusion is not present. A pericardial effusion is not seen. Small hiatal hernia. Fatty jose er. Renal calculi IMPRESSION: 21 millimeter right upper lobe nodule mildly increased in size Mild increase of a 10 millimeter middle mediastinal lymph node
--- NOTE | 2020-03-20 15:21 | RAD REPORT ---
EXAM DESCRIPTION: MRI - Brain W/Wo Cont - 03/20/2020 3:05 pm CLINICAL HISTORY: Slurred speech. Lung cancer COMPARISON: March 20, [address] TECHNIQUE: Axial, sagittal, and coronal magnetic images of the brain were obtained. 20 cc MultiHance administered intravenously FINDINGS: Mild to moderate signal within periventricular, deep and subcortical white matter probably ischemic changes secondary to small vessel disease The ventricles are normal in caliber. Diffusion-weighted/ ADC mapping sequences do not demonstrate evidence of an acute infarction. No abnormal enhancement within the brain is seen. An extra-axial fluid collection is not noted. Fluid within the sinuses/mastoids is not seen IMPRESSION: No acute abnormality displayed
--- NOTE | 2020-03-20 15:34 | EDPHYS ---
Physician Documentation [facility] Name: Jermaine Patricio Age: 79 yrs Sex: Male : 1940 Arrival Date: 03/20/2020 Time: 12:09 Bed 6 Private MD: Marciano Gonzales E ED Physician Gautam Saavedra HPI: 03/20 12:36 This 79 yrs old Male presents to ER via Wheelchair with complaints of kdr Dizziness, General Weakness. 12:36 The patient presents with dizziness, generalized weakness, feeling off balance. Onset: kdr The symptoms/episode began/occurred this morning. Context: occurred at home, occurred while the patient was asleep, at rest, The patient states that when he awoke this AM, he tried to get up but fell back into bed because he was off balance and weak. He was finally able to get out of bed and into a chair in the living room. He then somewhat later tried to get out of the chair to take his dog outside when he fell backwards into the chair. He remains dizzy. Primarily when he stands up or changes position. He denies any other precipitation or contributing sign/symptoms. Modifying factors: The symptoms are alleviated by holding head still, the symptoms are aggravated by movement of head, standing up, changing position. Associated signs and symptoms: Pertinent positives: blurred vision, Pertinent negatives: abdominal pain, agitation, chest pain, combativeness, confusion, diaphoresis, focal weakness, head injury, headache, nausea, near-syncope, numbness, palpitations, , seizure, shortness of breath, syncope, tingling. Severity of symptoms: At their worst the symptoms were mild just prior to arrival, in the emergency department the symptoms have improved mildly. Patient's baseline: Neuro: alert and fully oriented, Motor: no deficits, Ambulation: walks without assistance, Speech: normal, The patient has a previous history of Lung CA. The patient has experienced similar episodes in the past, a few times. The patient has not recently seen a physician. Historical: - Allergies: 12:13 No Known Allergies; jd3 - PMHx: 12:13 Hyperlipidemia; Hypertension; Lung Cancer; Myocardial infarction; COPD; jd3 - PSHx: 12:13 Heart stents; jd3 - Immunization history:: Adult Immunizations up to date. - Social history:: Smoking status: Patient denies any tobacco usage or history of. ROS: 12:36 Constitutional: Negative for fever, chills, and weight loss, Eyes: Negative for injury, kdr pain, redness, and discharge, Neck: Negative for injury, pain, and swelling, Cardiovascular: Negative for chest pain, palpitations, and edema, Respiratory: Negative for shortness of breath, cough, wheezing, and pleuritic chest pain, Abdomen/GI: Negative for abdominal pain, nausea, vomiting, diarrhea, and constipation, Back: Negative for injury and pain, : Negative for injury, bleeding, discharge, and swelling, MS/Extremity: Negative for injury and deformity, Skin: Negative for injury, rash, and discoloration, Psych: Negative for depression, anxiety, suicide ideation, homicidal ideation, and hallucinations, Allergy/Immunology: Negative for hives, rash, and allergies, Endocrine: Negative for neck swelling, polydipsia, polyuria, polyphagia, and marked weight changes, Hematologic/Lymphatic: Negative for swollen nodes, abnormal bleeding, and unusual bruising. 12:36 Neuro: Positive for dizziness, visual changes, weakness, Negative for loss of consciousness, numbness, seizure activity, speech changes, syncope, near syncope. Exam: 12:36 Constitutional: This is a well developed, well nourished patient who is awake, alert, kdr and in no acute distress. Head/Face: Normocephalic, atraumatic. Eyes: Pupils equal round and reactive to light, extra-ocular motions intact. Lids and lashes normal. Conjunctiva and sclera are non-icteric and not injected. Cornea within normal limits. Periorbital areas with no swelling, redness, or edema. Neck: Trachea midline, no thyromegaly or masses palpated, and no cervical lymphadenopathy. Supple, full range of motion without nuchal rigidity, or vertebral point tenderness. No Meningismus. Chest/axilla: Normal chest wall appearance and motion. Nontender with no deformity. No lesions are appreciated. Cardiovascular: Regular rate and rhythm with a normal S1 and S2. No gallops, murmurs, or rubs. Normal PMI, no JVD. No pulse deficits. Respiratory: Lungs have equal breath sounds bilaterally, clear to auscultation and percussion. No rales, rhonchi or wheezes noted. No increased work of breathing, no retractions or nasal flaring. Abdomen/GI: Soft, non-tender, with normal bowel sounds. No distension or tympany. No guarding or rebound. No evidence of tenderness throughout. Back: No spinal tenderness. No costovertebral tenderness. Full range of motion. Skin: Warm, dry with normal turgor. Normal color with no rashes, no lesions, and no evidence of cellulitis. MS/ Extremity: Pulses equal, no cyanosis. Neurovascular intact. Full, normal range of motion. Neuro: Awake and alert, GCS 15, oriented to person, place, time, and situation. Cranial nerves II-XII grossly intact. Motor strength 5/5 in all extremities. Sensory grossly intact. Cerebellar exam normal. Normal gait. Psych: Awake, alert, with orientation to person, place and time. Behavior, mood, and affect are within normal limits. 12:36 Neuro: Cranial nerves: Nystagmus is absent. 13:16 ECG was reviewed by the Attending Physician. kdr Vital Signs: 12:15 BP 145 / 80; Pulse 76; Resp 18 S; Temp 98.3(O); Pulse Ox 98% on R/A; Weight 81.65 kg jd3 (R); Height 5 ft. 9 in. (175.26 cm) (R); Pain 0/10; 13:00 BP 145 / 82; Pulse 72; Resp 18; Pulse Ox 98% on R/A; em 14:00 BP 130 / 75; Pulse 69; Resp 16; Pulse Ox 99% on R/A; em 15:30 BP 106 / 94; Pulse 65; Resp 15; Pulse Ox 97% ; jl7 12:15 Body Mass Index 26.58 (81.65 kg, 175.26 cm) jd3 MDM: 12:36 Data reviewed: vital signs, nurses notes, lab test result(s), radiologic studies. kdr Counseling: I had a detailed discussion with the patient and/or guardian regarding: the historical points, exam findings, and any diagnostic results supporting the discharge/admit diagnosis, lab results, radiology results, the need for outpatient follow up. 15:33 Patient medically screened. kdr 03/20 12:35 Order name: Basic Metabolic Panel; Complete Time: 14: kdr 03/20 12:35 Order name: CBC with Diff; Complete Time: 14: kdr 03/20 12:35 Order name: LFT's; Complete Time: 14:01 kdr 03/20 12:35 Order name: Magnesium; Complete Time: 14:01 kdr 03/20 12:35 Order name: NT PRO-BNP; Complete Time: 14:01 kdr 03/20 12:35 Order name: PT-INR; Complete Time: 14: kdr 03/20 12:34 Order name: CT Head Brain wo Cont; Complete Time: 14:01 kdr 03/20 12:34 Order name: CT Chest W/ Con; Complete Time: 15:07 kdr 03/20 12:35 Order name: Troponin (emerg Dept Use Only); Complete Time: 14: kdr 03/20 12:35 Order name: XRAY Chest (1 view); Complete Time: 14:04 kdr 03/20 12:35 Order name: EKG; Complete Time: 12:36 kdr 03/20 12:35 Order name: Cardiac monitoring; Complete Time: 13:01 kdr 03/20 14:10 Order name: Brain W/Wo Cont; Complete Time: 15:27 EDMS 03/20 12:35 Order name: EKG - Nurse/Tech; Complete Time: 13: kdr 03/20 12:35 Order name: IV Saline Lock; Complete Time: 12:54 kdr 03/20 12:35 Order name: Labs collected and sent; Complete Time: 12:54 kdr 03/20 12:35 Order name: O2 Per Protocol; Complete Time: 12:54 kdr 03/20 12:35 Order name: O2 Sat Monitoring; Complete Time: 12:54 kdr EC:16 Rate is 74 beats/min. Rhythm is regular, Sinus Rhythm with PACs. QRS Arena is Normal. kdr Left axis deviation noted. AR interval is normal. QRS interval is normal. QT interval is normal. Clinical impression: NSR w/ Non-specific ST/T Changes. Administered Medications: No medications were administered Disposition: 03/20/20 15:33 Discharged to Home. Impression: Dizziness and giddiness. - Condition is Stable. - Discharge Instructions: Vertigo, [id number], Dizziness, [id number]. - Prescriptions for Meclizine 25 mg Oral Tablet - take 1 tablet by ORAL route every 8 hours As needed; 15 tablet. - Medication Reconciliation Form, Thank You Letter form. - Follow up: Marciano Gonzales MD; When: 2 - 3 days; Reason: If symptoms return, Further diagnostic work-up, Recheck today's complaints, Continuance of care, Re-evaluation by your physician. - Problem is new. - Symptoms have improved. Signatures: Dispatcher [employer] [facility] Gautam Saavedra MD MD kdr Jaelyn Riddle RN RN jl7 Carter Car RN RN jd3 Corrections: (The following items were deleted from the chart) 14:10 14:04 Brain With Cont+MRI.RAD.BRZ ordered. [facility] 15:49 15:33 03/20/2020 15:33 Discharged to Home. Impression: Dizziness and giddiness. jl7 Condition is Stable. Forms are Medication Reconciliation Form, Thank You Letter, Antibiotic Education, Prescription Opioid Use. Follow up: Marciano Gonzales; When: 2 - 3 days; Reason: If symptoms return, Further diagnostic work-up, Recheck today's complaints, Continuance of care, Re-evaluation by your physician. Problem is new. Symptoms have improved. kdr
--- NOTE | 2020-03-20 15:34 | ER ---
Nurse's Notes [facility] Name: Jermaine Patricio Age: 79 yrs Sex: Male : 1940 Arrival Date: 03/20/2020 Time: 12:09 Bed 6 Private MD: Marciano Gonzales E Diagnosis: Dizziness and giddiness Presentation: 03/20 12:11 Chief complaint: Patient states: "I am on chemo and I get weak and I fell. I am just jd3 having a problem even standing up to day. feels like both my legs just feel weak.". Coronavirus screen: At this time, the client does not indicate any symptoms associated with coronavirus-19. Ebola Screen: Patient negative for fever greater than or equal to 101.5 degrees Fahrenheit, and additional compatible Ebola Virus Disease symptoms. Initial Sepsis Screen: Does the patient meet any 2 criteria? No. Patient's initial sepsis screen is negative. Does the patient have a suspected source of infection? No. Patient's initial sepsis screen is negative. Risk Assessment: Do you want to hurt yourself or someone else? Patient reports no desire to harm self or others. Onset of symptoms was March 20, 2020. 12:11 Method Of Arrival: Wheelchair jd3 12:11 Acuity: NICOLE 3 jd3 Historical: - Allergies: 12:13 No Known Allergies; jd3 - PMHx: 12:13 Hyperlipidemia; Hypertension; Lung Cancer; Myocardial infarction; COPD; jd3 - PSHx: 12:13 Heart stents; jd3 - Immunization history:: Adult Immunizations up to date. - Social history:: Smoking status: Patient denies any tobacco usage or history of. Screenin:17 Abuse screen: Denies threats or abuse. Nutritional screening: No deficits noted. em Tuberculosis screening: No symptoms or risk factors identified. Fall Risk None identified. Assessment: 12:18 General: Appears in no apparent distress. comfortable, Behavior is calm, cooperative, em appropriate for age, Denies fever. Pain: Denies pain. Neuro: Level of Consciousness is awake, alert, obeys commands, Oriented to person, place, time, situation, Appropriate for age Reports dizziness, weakness. Cardiovascular: Capillary refill < 3 seconds Patient's skin is warm and dry. Respiratory: Airway is patent Respiratory effort is even, unlabored, Respiratory pattern is regular, symmetrical. GI: Abdomen is flat, Patient currently denies nausea, vomiting. Derm: Skin is intact, is fragile, is thin, Skin is pink, warm \\T\\ dry. Musculoskeletal: Capillary refill < 3 seconds, Range of motion: intact in all extremities. 13:15 Reassessment: Patient appears in no apparent distress at this time. Patient and/or em family updated on plan of care and expected duration. Pain level reassessed. Patient is alert, oriented x 3, equal unlabored respirations, skin warm/dry/pink. Vital Signs: 12:15 BP 145 / 80; Pulse 76; Resp 18 S; Temp 98.3(O); Pulse Ox 98% on R/A; Weight 81.65 kg jd3 (R); Height 5 ft. 9 in. (175.26 cm) (R); Pain 0/10; 13:00 BP 145 / 82; Pulse 72; Resp 18; Pulse Ox 98% on R/A; em 14:00 BP 130 / 75; Pulse 69; Resp 16; Pulse Ox 99% on R/A; em 15:30 BP 106 / 94; Pulse 65; Resp 15; Pulse Ox 97% ; jl7 12:15 Body Mass Index 26.58 (81.65 kg, 175.26 cm) jd3 ED Course: 12:09 Patient arrived in ED. ag5 12:09 Marciano Gonzales MD is Private Physician. ag5 12:12 Triage completed. jd3 12:15 Arm band placed on. jd3 12:17 Pierre Hooks, RN is Primary Nurse. em 12:17 Patient has correct armband on for positive identification. Bed in low position. Call em light in reach. NIBP on. 12:20 Gautam Saavedra MD is Attending Physician. kdr 12:49 XRAY Chest (1 view) In Process Unspecified. EDMS 12:54 Initial lab(s) drawn, by me, sent to lab. Inserted saline lock: 20 gauge in right jl7 antecubital area, using aseptic technique. Blood collected. 13:50 CT Head Brain wo Cont In Process Unspecified. EDMS 13:50 CT Chest W/ Con In Process Unspecified. EDMS 15:04 Brain W/Wo Cont In Process Unspecified. EDMS 15:11 provided patient with urinal. mt 15:29 Marciano Gonzales MD is Referral Physician. kdr 15:48 No provider procedures requiring assistance completed. IV discontinued, intact, jl7 bleeding controlled, No redness/swelling at site. Pressure dressing applied. Administered Medications: No medications were administered Outcome: 15:33 Discharge ordered by . kdr 15:48 Discharged to home ambulatory, with family. jl7 15:48 Condition: stable 15:48 Discharge instructions given to patient, family, Instructed on discharge instructions, follow up and referral plans. medication usage, Demonstrated understanding of instructions, follow-up care, medications, Prescriptions given X 1. 15:49 Patient left the ED. jl7 Signatures: Dispatcher [employer] EDMS Gautam Saavedra MD MD kdr Pierre Hooks, RN RN Jaelyn Butt RN RN Ashly Ni mt, Jonathon RN RN jcarlos Schaeffer, [place] ag5 Corrections: (The following items were deleted from the chart) 12:16 12:11 Chief complaint: Patient states: "I am on chemo and I get weak and I fell. I am jd3 just having a problem even standing up to day." jd3
[2020-03-20 15:57] VITALS: TEMP 98.3
[2020-03-20 16:01] VITALS: BP 106/94; O2SAT 97
--- NOTE | 2020-03-22 10:14 | EKG ---
Test Date: 2020-03-20 Test Time: 12:59:16 Hide Measuring Machine Operator: LAZARA MEASUREMENT RESULTS: Intervals: Rate: 74 IN: 190 QRSD: 100 QT: 430 QTc: 477 [place]: P: 68 IN: 190 QRS: -59 T: 68 INTERPRETIVE STATEMENTS: Sinus rhythm with premature atrial complexes Left axis deviation Anterior infarct, age undetermined Abnormal ECG Compared to ECG 03/02/2020 12:04:40 Atrial premature complex(es) now present Myocardial infarct finding now present Electronically Signed On 03-22-20 10:10:33 RUSTIC TERRAZZO SETTER by Rich Isaacs
== END 2020-03-20 15:49 | disposition home or self-care (01) ==
LOC: ER 12:07
DX: R42 Dizziness and giddiness (principal); R53.1 Weakness; Z85.118 Personal history of other malignant neoplasm of bronchus and lung; Z95.818 Presence of other cardiac implants and grafts
CPT/HCPCS: 93005; 85025; 80048; 36415; 83735; 85610; 80076; 84484; 83880; 70450; 71260; 71045; 70553; 99284; Q9967; A9577

== ENCOUNTER 2021-01-08 07:05 | Day surgery (SDC) | payer OTHER ==
[2021-01-08] MEDS ORDERED: NA CHLORIDE 0.9% 1,000 ML ONE (08:40)
[2021-01-08 11:18] VITALS: BP 121/61; TEMP 97.1; O2SAT 100
[2021-01-08 11:19] VITALS: BMI 27.3
== END 2021-01-08 10:15 | disposition home or self-care (01) ==
LOC: DS 07:05
PROVIDERS: ATTEND Internal Medicine Hematology & Oncology
DX: C19 Malignant neoplasm of rectosigmoid junction (principal); C78.01 Secondary malignant neoplasm of right lung; Z53.8 Procedure and treatment not carried out for other reasons
CPT/HCPCS: J7030

== ENCOUNTER 2021-01-15 07:48 | Day surgery (SDC) | payer OTHER ==
[2021-01-15] MEDS ORDERED: Ringers Lactate 1,000 ML IV ONE (08:39)
--- NOTE | 2021-01-15 10:31 | RAD REPORT ---
EXAM DESCRIPTION: CT - Lung Biopsy Perc w/CT - 01/15/2021 10:17 am CLINICAL HISTORY: LUNG BX COMPARISON: Chest Abdomen Pelvis W Cont dated 11/30/2020 FINDINGS: Preoperative diagnosis: Right upper lobe lesion Post operative diagnosis: Same Conscious Sedation: Versed and Fentanyl Patient was continuously monitored by nursing staff. Contrast used: NONE Estimated blood loss: less than 5 mL Specimens: 3 x 18 gauge core samples obtained. The patient was placed prone on the table and the right posterior hemithorax area was prepped and justus ped in the usual sterile fashion. 1% lidocaine was infiltrated into the subcutaneous tissues for loca l anesthesia. Under computed tomographic guidance, a 17 gauge introducer was advanced into the lesion . Subsequently, a 18 gauge 20 mm throw core biopsy gun was advanced into the lesion and 3 cores were obtained. Postprocedure imaging demonstrated no complications. Samples were given to pathology for analysis. Th e patient tolerated the procedure without immediate complication and transferred to the recovery room in stable condition. IMPRESSION: Technically successful CT-guided biopsy of a right upper lobe lung lesion. No immediate complications. Conscious sedation was utilized. All CT scans are performed using dose optimization technique as appropriate and may include automated exposure control or mA/KV adjustment according to patient size.
[2021-01-15 11:07] VITALS: BMI 27.3
--- NOTE | 2021-01-15 11:20 | RAD REPORT ---
EXAM DESCRIPTION: RAD - Chest Single View - 01/15/2021 11:06 am CLINICAL HISTORY: POST LUNG BX COMPARISON: Chest Single View dated 03/20/2020; Chest Pa And Lat (2 Views) dated 10/03/2017; Chest Si ngle View dated 12/30/2016; Chest Single View dated 07/27/2016 FINDINGS: 1 hour post right upper lobe lung biopsy radiograph. No pneumothorax identified. IMPRESSION: No pneumothorax fine right-sided lung biopsy.
--- NOTE | 2021-01-15 12:33 | RAD REPORT ---
EXAM DESCRIPTION: RAD - Chest Single View - 01/15/2021 12:13 pm CLINICAL HISTORY: POST LUNG BX COMPARISON: Chest Single View dated 03/20/2020; Chest Pa And Lat (2 Views) dated 10/03/2017; Chest Si ngle View dated 12/30/2016; Chest Single View dated 07/27/2016 FINDINGS: Status post right-sided lung biopsy. No appreciable pneumothorax. No significant change fr om prior. IMPRESSION: No pneumothorax following right-sided lung biopsy.
[2021-01-15 12:45] VITALS: BP 127/69; O2SAT 96
[2021-01-15 12:46] VITALS: TEMP 97.8
== END 2021-01-15 12:20 | disposition home or self-care (01) ==
LOC: DS 07:48
PROVIDERS: ATTEND Internal Medicine Hematology & Oncology
PROC: 0BDC4ZX Extraction of Right Upper Lung Lobe, Percutaneous Endoscopic Approach, Diagnostic (ICD-10-PCS; principal; 2021-01-15)
DX: C78.01 Secondary malignant neoplasm of right lung (principal); C19 Malignant neoplasm of rectosigmoid junction
CPT/HCPCS: 88305; 77012; 32405; 71045 ×2; 32408 ×3; J7120

== ENCOUNTER 2021-03-01 12:04 | Emergency (ER) | payer OTHER ==
[2021-03-01 12:48] LABS: Absolute Lymphocytes (CBC) 1.4 K/uL (0.7-4.9); Basophils % 0.7 % (0-1.3); Lymphocytes % 20.7 % (15.3-44.8); MPV 6.4 fL (7.6-11.3); RBC Red Blood Cell Count 4.84 M/uL (4.33-5.43)
[2021-03-01 13:08] LABS: Albumin 3.6 g/dL (3.4-5.0); Bilirubin Direct 0.2 mg/dL (0-0.2); Bilirubin Total 0.6 mg/dL (0.2-1.0); Magnesium 2.3 mg/dL (1.8-2.4); Potassium 3.7 mmol/L (3.5-5.1); Protein, Total 7.1 g/dL (6.4-8.2); Troponin (Emerg Dept Use Only) 0.02 ng/mL (0.0-0.045)
--- NOTE | 2021-03-01 13:16 | RAD REPORT ---
EXAM DESCRIPTION: [place] Single View03/01/2021 1:03 pm CLINICAL HISTORY: sob COMPARISON: December 2020 FINDINGS: Right lung nodule is partially obscured by overlying central venous catheter. Lungs appear clear of acute infiltrate. Heart is normal size
[2021-03-01 13:19] LABS: Protime INR 0.97
[2021-03-01] MEDS ORDERED: ALBUTEROL 2.5 MG/3 ML NEB SOL ONE (13:25)
--- NOTE | 2021-03-01 15:23 | RAD REPORT ---
EXAM DESCRIPTION: CT - Chest For Pe Angio - 03/01/2021 3:05 pm CLINICAL HISTORY: Chest pain COMPARISON: 2019 TECHNIQUE: Dynamically enhanced axial 3 mm thick images of the chest were obtained during administra tion of <100> mL Isovue 370 IV contrast. Coronal and oblique reconstruction images were generated and reviewed. Exam utilizes a protocol for optimal evaluation of pulmonary arterial tree. Maximum intensity projections 3D imaging was utilized All CT scans are performed using dose optimization technique as appropriate and may include automated exposure control or mA/KV adjustment according to patient size. FINDINGS: A pulmonary embolus is not seen. A thoracic aortic aneurysm is not noted. A pleural effusion is not seen. A pericardial effusion is not seen. 3.6 centimeter nodule right upper lobe has increased in size. Previously it measured 2.1 centimeters. Mild mediastinal lymphadenopathy. IMPRESSION: Negative for a pulmonary embolism. 3.6 centimeter right upper lobe nodule increased in size likely neoplasm
--- NOTE | 2021-03-01 15:45 | ER ---
Nurse's Notes [facility] Name: Jermaine Patricio Age: 80 yrs Sex: Male : 1940 Arrival Date: 03/01/2021 Time: 12:07 Bed 4 Private MD: Diagnosis: Dyspnea Presentation: 03/01 12:07 Chief complaint: EMS states: SHORTNESS OF BREATH 2 HR AFTER CHEMO INFUSION. Coronavirus bp screen: At this time, the client does not indicate any symptoms associated with coronavirus-19. Ebola Screen: No symptoms or risks identified at this time. Initial Sepsis Screen: Does the patient meet any 2 criteria? No. Patient's initial sepsis screen is negative. Does the patient have a suspected source of infection? No. Patient's initial sepsis screen is negative. Risk Assessment: Do you want to hurt yourself or someone else? Patient reports no desire to harm self or others. Onset of symptoms was March 01, 2021 at 11:00. Care prior to arrival: Medication(s) given: 125 MG SOLU-MEDROL IVP IV initiated. 20 GA, in the right hand. 12:07 Method Of Arrival: EMS: [facility] bp 12:07 Acuity: NICOLE 3 bp Triage Assessment: 12:10 General: Appears distressed, uncomfortable, Behavior is cooperative, appropriate for bp age, anxious. Pain: Denies pain. EENT: No deficits noted. Neuro: Level of Consciousness is awake, alert, obeys commands, Oriented to Appropriate for age. Cardiovascular: No deficits noted. Respiratory: Reports shortness of breath Onset: The symptoms/episode began/occurred today, the patient has mild shortness of breath. GI: No signs and/or symptoms were reported involving the gastrointestinal system. : No signs and/or symptoms were reported regarding the genitourinary system. Derm: No deficits noted. Musculoskeletal: No deficits noted. Historical: - Allergies: 12:33 No Known Allergies; bp - PMHx: 12:33 Myocardial infarction; Hypertension; Lung Cancer; Hyperlipidemia; COPD; bp - Immunization history:: Adult Immunizations up to date. - Social history:: Smoking status: Patient denies any tobacco usage or history of. Screenin:10 Abuse screen: Denies threats or abuse. Denies injuries from another. Nutritional bp screening: No deficits noted. Tuberculosis screening: No symptoms or risk factors identified. Fall Risk No fall in past 12 months (0 pts). No secondary diagnosis (0 pts). IV access (20 points). Ambulatory Aid- None/Bed Rest/Nurse Assist (0 pts). Gait- Normal/Bed Rest/Wheelchair (0 pts) Mental Status- Oriented to own ability (0 pts). Fall Risk Total Vega Fall Scale indicates No Risk (0-24 pts). Assessment: 12:10 General: SEE TRIGE NOTE. bp 13:30 Reassessment: No changes from previously documented assessment. Cardiovascular: Rhythm bp is sinus rhythm. Respiratory: Airway is patent Respiratory effort is even, unlabored, Respiratory pattern is regular, symmetrical, Breath sounds are diminished in right upper lobe and right middle lobe. 15:28 Reassessment: Patient appears in no apparent distress at this time. No changes from bp previously documented assessment. Patient and/or family updated on plan of care and expected duration. Pain level reassessed. ALL CURRENT ORDERS COMPLETE, RESULTS PENDING. 16:04 Reassessment: Pt discharged, awaiting CD from radiology. jl7 Vital Signs: 12:10 BP 136 / 77; Pulse 84; Resp 22; Pulse Ox 100% ; bp 13:43 BP 125 / 74; Pulse 98; Resp 28; Pulse Ox 100% ; jl7 14:30 BP 138 / 78; Pulse 94; Resp 27; Pulse Ox 99% ; bp 15:30 BP 108 / 70; Pulse 94; Resp 21; Pulse Ox 100% ; bp ED Course: 12:07 Patient arrived in ED. ds1 12:10 Maintain EMS IV. Dressing intact. Good blood return noted. Site clean \T\ dry. Gauge \T\ bp site: 22 GAUGE R AC. 12:10 Arm band placed on. bp 12:10 Allergy band placed. Bed in low position. Call light in reach. Side rails up X2. bp laboratory monitor on. Pulse ox on. NIBP on. 12:12 Jay Nieto PA is PHCP. jr8 12:12 Gautam Saavedra MD is Attending Physician. jr8 12:30 Silviano Blood, GERARDO is Primary Nurse. bp 12:33 Triage completed. bp 12:39 Initial lab(s) drawn, by me, sent to lab. EKG done, by ED staff, reviewed by Jay em1 Gerson FOSS. 13:03 XRAY Chest (1 view) In Process Unspecified. EDMS 15:03 CT Chest For PE Angio Sent. bp 15:04 CT Chest For PE Angio In Process Unspecified. EDMS 15:42 Toña Carter MD is Referral Physician. jr8 16:04 No provider procedures requiring assistance completed. IV discontinued, intact, jl7 bleeding controlled, No redness/swelling at site. Pressure dressing applied. Administered Medications: 13:32 Not Given (Physician Discretion): SOLU-Medrol (methylPrednisoLONE) 125 mg IVP once bp 13:32 Not Given (Patient Refused): Albuterol 2.5 mg Inhalation every 20 minutes x3 bp Outcome: 15:44 Discharge ordered by . jr8 16:04 Discharged to home ambulatory, with family. jl7 16:04 Condition: stable 16:04 Discharge instructions given to patient, family, Instructed on discharge instructions, follow up and referral plans. Demonstrated understanding of instructions, follow-up care. 16:20 Patient left the ED. jl7 Signatures: Dispatcher [employer] EDKS Helena Howard ds1 Donta Munguia em1 Jay Nieto PA PA jr8 Jaelyn Riddle, RN RN jl7 Silviano Blood, RN RN bp
--- NOTE | 2021-03-01 15:45 | EDPHYS ---
Physician Documentation [facility] Name: Jermaine Patricio Age: 80 yrs Sex: Male : 1940 Arrival Date: 03/01/2021 Time: 12:07 Bed 4 Private MD: ED Physician Gautam Saavedra HPI: 03/01 14:55 This 80 yrs old Male presents to ER via EMS with complaints of Shortness Of jr8 Breath. 14:55 The patient has shortness of breath at rest. Onset: The symptoms/episode began/occurred jr8 acutely, today. Duration: The symptoms are continuous. The patient's shortness of breath has no apparent modifying factors. Associated signs and symptoms: The patient has no apparent associated signs or symptoms. Severity of symptoms: At their worst the symptoms were moderate in the emergency department the symptoms are unchanged. The patient has not experienced similar symptoms in the past. The patient has been recently seen by a physician:. This is a 80-year-old male patient that came in after being discharged from the cancer center. Patient stated that he started his second 5-fluorouracil infusion for metastatic lung cancer. Patient stated that he had tingling to his fingers and shortness of breath.. Historical: - Allergies: 12:33 No Known Allergies; bp - PMHx: 12:33 Myocardial infarction; Hypertension; Lung Cancer; Hyperlipidemia; COPD; bp - Immunization history:: Adult Immunizations up to date. - Social history:: Smoking status: Patient denies any tobacco usage or history of. ROS: 14:55 Eyes: Negative for injury, pain, redness, and discharge, ENT: Negative for injury, jr8 pain, and discharge, Neck: Negative for injury, pain, and swelling, Cardiovascular: Negative for chest pain, palpitations, and edema, Abdomen/GI: Negative for abdominal pain, nausea, vomiting, diarrhea, and constipation, Back: Negative for injury and pain, MS/Extremity: Negative for injury and deformity, Skin: Negative for injury, rash, and discoloration, Neuro: Negative for headache, weakness, numbness, tingling, and seizure. 14:55 Respiratory: Positive for shortness of breath, at rest. Exam: 14:55 Eyes: Pupils equal round and reactive to light, extra-ocular motions intact. Lids and jr8 lashes normal. Conjunctiva and sclera are non-icteric and not injected. Cornea within normal limits. Periorbital areas with no swelling, redness, or edema. ENT: Nares patent. No nasal discharge, no septal abnormalities noted. Tympanic membranes are normal and external auditory canals are clear. Oropharynx with no redness, swelling, or masses, exudates, or evidence of obstruction, uvula midline. Mucous membranes moist. Neck: Trachea midline, no thyromegaly or masses palpated, and no cervical lymphadenopathy. Supple, full range of motion without nuchal rigidity, or vertebral point tenderness. No Meningismus. Cardiovascular: Regular rate and rhythm with a normal S1 and S2. No gallops, murmurs, or rubs. Normal PMI, no JVD. No pulse deficits. Abdomen/GI: Soft, non-tender, with normal bowel sounds. No distension or tympany. No guarding or rebound. No evidence of tenderness throughout. Back: No spinal tenderness. No costovertebral tenderness. Full range of motion. Skin: Warm, dry with normal turgor. Normal color with no rashes, no lesions, and no evidence of cellulitis. MS/ Extremity: Pulses equal, no cyanosis. Neurovascular intact. Full, normal range of motion. Neuro: Awake and alert, GCS 15, oriented to person, place, time, and situation. Cranial nerves II-XII grossly intact. Motor strength 5/5 in all extremities. Sensory grossly intact. Cerebellar exam normal. Normal gait. 14:55 Constitutional: The patient appears alert, awake, anxious. 14:55 Respiratory: the patient does not display signs of respiratory distress, Respirations: tachypnea, that is mild, Breath sounds: are clear throughout. Vital Signs: 12:10 BP 136 / 77; Pulse 84; Resp 22; Pulse Ox 100% ; bp 13:43 BP 125 / 74; Pulse 98; Resp 28; Pulse Ox 100% ; jl7 14:30 BP 138 / 78; Pulse 94; Resp 27; Pulse Ox 99% ; bp 15:30 BP 108 / 70; Pulse 94; Resp 21; Pulse Ox 100% ; bp MDM: 12:13 Patient medically screened. [facility] 14:55 Data reviewed: vital signs, nurses notes, lab test result(s), EKG, radiologic studies, [facility] CT scan, plain films. Data interpreted: Pulse oximetry: on room air is 100 %. Interpretation: normal. Counseling: I had a detailed discussion with the patient and/or guardian regarding: the historical points, exam findings, and any diagnostic results supporting the discharge/admit diagnosis, lab results, radiology results. ED course: Discussed case with Dr. Valdivia. We will have decided to discontinue his 5-fluorouracil infusion. Patient is feeling better since infusion has been stopped. We will rule out PE as well. If everything is normal will be discharged home to follow-up with cancer center.. 03/01 12:14 Order name: Basic Metabolic Panel; Complete Time: 13:35 8 03/01 12:14 Order name: CBC with Diff; Complete Time: 12:55 8 03/01 12:14 Order name: LFT's; Complete Time: 13:35 8 03/01 12:14 Order name: Magnesium; Complete Time: 13:35 8 03/01 12:14 Order name: NT PRO-BNP; Complete Time: 13:35 8 03/01 12:14 Order name: PT-INR; Complete Time: 13:35 8 03/01 12:14 Order name: Troponin (emerg Dept Use Only); Complete Time: 13:35 8 03/01 12:14 Order name: XRAY Chest (1 view); Complete Time: 13:35 8 03/01 12:14 Order name: EKG; Complete Time: 12:14 03/01 12:14 Order name: Cardiac monitoring; Complete Time: 12:38 03/01 12:14 Order name: EKG - Nurse/Tech; Complete Time: 12:38 03/01 14:49 Order name: CT Chest For PE Angio; Complete Time: 15:41 8 03/01 12:14 Order name: IV Saline Lock; Complete Time: 12:39 03/01 12:14 Order name: Labs collected and sent; Complete Time: 12:38 03/01 12:14 Order name: O2 Per Protocol; Complete Time: 12:38 03/01 12:14 Order name: O2 Sat Monitoring; Complete Time: 12:38 Administered Medications: 13:32 Not Given (Physician Discretion): SOLU-Medrol (methylPrednisoLONE) 125 mg IVP once bp 13:32 Not Given (Patient Refused): Albuterol 2.5 mg Inhalation every 20 minutes x3 bp Disposition: 03/02 08:58 Co-signature as Attending Physician, Gautam Saavedra MD I agree with the assessment and kdr plan of care. Disposition Summary: 03/01/21 15:44 Discharge Ordered Location: Home jr8 Problem: new jr8 Symptoms: have improved jr8 Condition: Stable jr8 Diagnosis - Dyspnea jr8 Followup: jr8 - With: Toña Carter MD - When: Tomorrow - Reason: Recheck today's complaints, Continuance of care, Re-evaluation by your physician Discharge Instructions: - Discharge Summary Sheet jr8 - Shortness of Breath, Adult jr8 Forms: - Medication Reconciliation Form jr8 - Thank You Letter jr8 - Antibiotic Education jr8 - Prescription Opioid Use jr8 Signatures: Dispatcher [employer] EDMS Gautam Saavedra MD MD [facility] Jay Nieto PA PA jr8 Silviano Blood, RN RN bp
[2021-03-01 16:40] VITALS: BP 108/70; O2SAT 100
--- NOTE | 2021-03-02 07:16 | EKG ---
Test Date: 2021-03-01 Test Time: 12:25:23 Planograph Operator: ROSEMARY MEASUREMENT RESULTS: Intervals: Rate: 80 TN: 182 QRSD: 88 QT: 410 QTc: 472 [place]: P: 51 TN: 182 QRS: -59 T: 59 INTERPRETIVE STATEMENTS: Normal sinus rhythm Left axis deviation Inferior infarct, age undetermined Possible Anterior infarct, age undetermined Abnormal ECG Compared to ECG 06/29/2020 13:48:32 Myocardial infarct finding now present Electronically Signed On 03-02-21 07:15:17 CDT by Rich Isaacs
== END 2021-03-01 16:20 | disposition home or self-care (01) ==
LOC: ER 12:04
DX: R06.00 Dyspnea, unspecified (principal); C78.00 Secondary malignant neoplasm of unspecified lung; I10 Essential (primary) hypertension; I25.2 Old myocardial infarction
CPT/HCPCS: 93005; 85025; 80048; 36415; 83735; 85610; 80076; 84484; 83880; 71275; 71045; 99284; Q9967

== ENCOUNTER 2021-09-24 10:26 | Emergency (ER) | payer OTHER ==
--- OUTSIDE RECORDS SUMMARY | 2021-09-24 10:30 | XMS REPORT | Continuity of Care Document ---
:1940 Author Organization [facility] t Address [address] [place] [address] Dr. Gautam [address] [place] [address] Care Team Providers Name Role Phone AYAZ VALDOVINOS Attending Clinician Unavailable AYAZ VALDOVINOS Admitting Clinician Unavailable Problems This patient has no known problems. Allergies, Adverse Reactions, Alerts This patient has no known allergies or adverse reactions. Medications This patient has no known medications. Procedures This patient has no known procedures. Results Test Description Test Time Test Comments Results Result Comments Source BLOOD CULTURE 2016-11-10 11:01:00 Test Item Value Reference Range Interpretation Comme nts CULTURE (BEAKER) (test code = 1095) No growth in 5 days TISSUE [id number] 19:27:00Surgical Pathology Report Case: [id number] Authorizing Provider: Bruna Hauser Collected: 11/05/2016 1058 MD Anderson OrderingLocation: [place] [address] ICU Received: 11/07/2016 0813 Pathologist: Steve Cabrales MD Specimen: Polyp, Colon - Rectosigmoid, BX OF THE RECTOSIGMOID MASS A. RECTOSIGMOID COLON, MASS, BIOPSY: - SUPERFICIAL FRAGMENTS OF ADENOCARCINOMA ( SEE COMMENT) - UNDERLYING INVASIVE COMPONENT CANNOT BE EXCLUDED The biopsy consists of several fragments of superficially sampled adenocarcinoma. No definite desmoplastic stroma is seen to confidently assess invasion. Clinical and radiologic correlation is recommended.[id number] GI bleedRectosigmoid mass biopsy The specimen is received in a formalin-filled containerlabeled with the patient's information and labeled " "rectosigmoid colon polyp" and consists of multiple fragments of tom-white soft tissue ranging from 0.1 to 0.4 cm, submitted entirely in A1. CG/ew Pe rformed.BASIC METABOLIC [id number] 07:03:00 Test Item Value Reference Range Interpretation [...] (BEAKER) (test code = 413) 0.00BASIC METABOLIC [id number] 05:54:00 Test Item Value Reference Range Interpretation [...] (BEAKER) (test code = 413) 0.00HEMOGLOBIN AND [id number] 00:16:00 Test Item Value Reference Range Interpretation Comments HEMOGLOBIN (BEAKER) (test code = 9.8 GM/DL 13.0-16.8 L 410) HEMATOCRIT (BEAKER) (test code = 30.4 % 40.0-50.0 L 411) CARCINOEMBRYONIC ANTIGEN (CEA)2016-11-05 17:22:00 Test Item Value Reference Range Interpretation Comments CARCINOEMBRYONIC ANTIGEN (BEAKER) 1.7 ng/mL 0.0-5.0 (test code = 685) HEMOGLOBIN AND [id number] 16:51:00 Test Item Value Reference Range Interpretation Comments HEMOGLOBIN (BEAKER) (test code = 11.8 GM/DL 13.0-16.8 L 410) HEMATOCRIT (BEAKER) (test code = 37.0 % 40.0-50.0 L 411) HEMOGLOBIN AND [id number] 07:34:00 Test Item Value Reference Range Interpretation Comments HEMOGLOBIN (BEAKER) (test code = 12.1 GM/DL 13.0-16.8 L 410) HEMATOCRIT (BEAKER) (test code = 37.6 % 40.0-50.0 L 411) URINALYSIS W/ [id number] 07:10:00 Test Item Value Reference Range Interpretation [...] = Rare 1574) SOURCE(BEAKER) (test code = 2795) CALCIUM, [id number] 05:43:00 Test Item Value Reference Range Interpretation Comments CALCIUM IONIZED (BEAKER) (test 0.97 mmol/L 1.12-1.27 L code = 698) PH, BLOOD (BEAKER) (test code = 7.33 1810) CREATINE KINASE (CK), TOTAL AND [id number] 01:37:00 Test Item Value Reference Range Interpretation Comments CREATINE KINASE TOTAL (BEAKER) 40 U/L 29-200 (test code = 380) CREATINE KINASE-MB (BEAKER) (test 0.5 ng/mL 0.0-6.6 code = 750) CREATINE KINASE-MB INDEX (BEAKER) 1.3 % (test code = 395) Effective 04/08/2014: CK-MB Reference Range ChangeNew: 0.0-6.6 Previous: 0.0-4.9CK-MB Reference Range:<6.7 Normal6.7-10.0 Borderline>10.0 AbnormalTROPONIN [id number] 01:37:00 Test Item Value Reference Range Interpretation [...] acute neurological disease, and persistent tachyarrhythmia.BASIC METABOLIC [id number] 01:30:00 Test Item Value Reference Range Interpretation [...] APPLICABLE FOR DIALYSIS PATIEN TS. HEPATIC FUNCTION [id number] 01:30:00 Test Item Value Reference Range Interpretation [...] 347) hemolyzed CBC W/PLT COUNT & AUTO [id number] 01:17:00 Test Item Value Reference Range Interpretation [...] K/ L 0.00-0.20 (test code = 417) 0.00PT/[id number] 01:16:00 Test Item Value Reference Range Interpretation [...] 2.5-3.5 for patients with mechanical heart valves.PROTHROMBIN TIME/[id number] 01:15:00 Test Item Value Reference Range Interpretation [...]
[2021-09-24] MEDS ORDERED: HYDROCODONE/APAP 5/325 MG TAB ONE (11:13)
[2021-09-24] MEDS ORDERED: LIDOCAINE 4% PATCH ONE (11:14)
--- NOTE | 2021-09-24 11:46 | RAD REPORT ---
EXAM DESCRIPTION: RAD - Lumbar Spine 3 Views - 09/24/2021 11:32 am CLINICAL HISTORY: Fall injury COMPARISON: Lumbar Spine 3 Views dated 05/31/2016; LUMBAR SPINE 3 VIEWS dated 11/08/2007 FINDINGS: No acute fracture. Grade 1 anterolisthesis of L5 on S1 which is similar. Mild diffuse endp late spurring. The disc heights are fairly well-maintained and similar to 2017. IMPRESSION: No acute osseous abnormality involving the lumbar spine.
[2021-09-24] MEDS ORDERED: FENTANYL CITR 100 MCG/2 ML ONE (13:12)
--- NOTE | 2021-09-24 13:39 | ER ---
Nurse's Notes [facility] Name: Jermaine Patricio Age: 81 yrs Sex: Male : 1940 Arrival Date: 09/24/2021 Time: 10:28 Bed 6 Private MD: Diagnosis: Low back pain;Fall on same level, unspecified Presentation: 09/24 10:40 Chief complaint: Patient states: fell from standing a couple days ago, lost balance and iw fell back and twisted, now has pain all across lower back, has hx of slipped disc and two bulging discs , is having difficulty walking. 10:40 Acuity: NICOLE 3 iw 10:40 Method Of Arrival: Wheelchair iw 10:41 Coronavirus screen: At this time, the client does not indicate any symptoms associated iw with coronavirus-19. Ebola Screen: Patient negative for fever greater than or equal to 101.5 degrees Fahrenheit, and additional compatible Ebola Virus Disease symptoms Patient denies exposure to infectious person. Patient denies travel to an Ebola-affected area in the 21 days before illness onset. No symptoms or risks identified at this time. Initial Sepsis Screen: Does the patient meet any 2 criteria? No. Patient's initial sepsis screen is negative. Does the patient have a suspected source of infection? No. Patient's initial sepsis screen is negative. Risk Assessment: Do you want to hurt yourself or someone else? Patient reports no desire to harm self or others. Onset of symptoms was September 22, 2021. Triage Assessment: 10:45 General: Appears in no apparent distress. uncomfortable, Behavior is calm, cooperative, bp appropriate for age. Pain: Complains of pain in low back area. EENT: No deficits noted. Neuro: No deficits noted. Cardiovascular: No deficits noted. Respiratory: No deficits noted. GI: No signs and/or symptoms were reported involving the gastrointestinal system. : No signs and/or symptoms were reported regarding the genitourinary system. Derm: No deficits noted. Musculoskeletal: No deficits noted. Historical: - Allergies: 10:41 No Known Allergies; iw - PMHx: 10:41 COPD; Hyperlipidemia; Hypertension; Lung Cancer; Myocardial infarction; iw - PSHx: 10:41 cardiac stent; colostomy and reversal; iw - Immunization history:: Adult Immunizations. - Social history:: Smoking status: Patient denies any tobacco usage or history of. Screenin:45 Abuse screen: Denies threats or abuse. Denies injuries from another. Nutritional bp screening: No deficits noted. Tuberculosis screening: No symptoms or risk factors identified. Fall Risk Fall in past 12 months (25 points). No secondary diagnosis (0 pts). No IV (0 pts). Ambulatory Aid- None/Bed Rest/Nurse Assist (0 pts). Gait- Normal/Bed Rest/Wheelchair (0 pts) Mental Status- Oriented to own ability (0 pts). Total Vega Fall Scale indicates Low Risk Score (25-44 pts). Fall prevention measures have been instituted. Side Rails Up X 2 Placed close to Nursing Station Family Present and informed to notify staff if they need to leave bedside As available Patient and Family Educated on Fall Prevention Program and strategies. Assessment: 10:45 General: SEE TRIAGE NOTE. bp 11:59 Reassessment: Patient appears in no apparent distress at this time. No changes from d3 previously documented assessment. Patient and/or family updated on plan of care and expected duration. Pain level reassessed. Patient is alert, oriented x 3, equal unlabored respirations, skin warm/dry/pink. 12:59 Reassessment: Patient appears in no apparent distress at this time. No changes from jd3 previously documented assessment. Patient and/or family updated on plan of care and expected duration. Pain level reassessed. Patient is alert, oriented x 3, equal unlabored respirations, skin warm/dry/pink. 13:59 Reassessment: Patient appears in no apparent distress at this time. Patient and/or jd3 family updated on plan of care and expected duration. Pain level reassessed. Patient is alert, oriented x 3, equal unlabored respirations, skin warm/dry/pink. Vital Signs: 10:43 BP 97 / 84; Pulse 84; Resp 16; Temp 98.2; Pulse Ox 97% on R/A; Weight 75.3 kg; Height 5 iw ft. 8 in. (172.72 cm); Pain 7/10; 11:59 BP 129 / 66; Pulse 82; Resp 16 S; Pulse Ox 99% on R/A; jd3 13:00 BP 108 / 65; Pulse 83; Resp 16 S; Pulse Ox 99% on R/A; jd3 10:43 Body Mass Index 25.24 (75.30 kg, 172.72 cm) ED Course: 10:28 Patient arrived in ED. rg4 10:41 Triage completed. iw 10:43 Arm band placed on. iw 10:45 Casey Keith NP is PHCP. pm1 10:45 Magda Carlin MD is Attending Physician. pm1 10:45 Patient has correct armband on for positive identification. Bed in low position. Call bp light in reach. Side rails up X2. Adult w/ patient. 10:51 Carter Car, RN is Primary Nurse. jd3 11:30 Lumbar Spine (3 Views) XRAY In Process Unspecified. EDMS 14:00 No provider procedures requiring assistance completed. Patient did not have IV access jd3 during this emergency room visit. Administered Medications: 11:16 Drug: Lidoderm Patch 5 % (700 mg/patch) 1 patches Route: Topical; Site: affected area; jd3 12:16 Follow up: Response: No adverse reaction jd3 11:16 Drug: HYDROcodone-acetaminophen 5 mg-325 mg 1 tabs Route: PO; jd3 12:15 Follow up: Response: No adverse reaction; RASS: Alert and Calm (0) jd3 13:11 Drug: fentaNYL (PF) 50 mcg Route: IM; Site: right deltoid; jd3 13:59 Follow up: Response: No adverse reaction; RASS: Alert and Calm (0) jd3 Outcome: 13:38 Discharge ordered by . pm1 14:00 Discharged to home via wheelchair, with family. jd3 14:00 Condition: stable 14:00 Discharge instructions given to patient, family, Instructed on discharge instructions, follow up and referral plans. medication usage, Demonstrated understanding of instructions, follow-up care, medications, Prescriptions given X 2. 14:00 Patient left the ED. jd3 Signatures: Dispatcher [employer] EDMS Rosa Marks RN RN Casey Keith NP C[employer] GUARD pm1 Inna Chopra rg4 Carter Car RN RN jSilviano Skinner RN RN bp
--- NOTE | 2021-09-24 13:39 | EDPHYS ---
Physician Documentation [facility] Name: Jermaine Patricio Age: 81 yrs Sex: Male : 1940 Arrival Date: 09/24/2021 Time: 10:28 Bed 6 Private MD: ED Physician Magda Carlin HPI: 09/24 11:01 This 81 yrs old Male presents to ER via Wheelchair with complaints of Fall Injury, Back pm1 Pain. 11:01 Details of fall: The patient fell from an upright position, while walking. Onset: The pm1 symptoms/episode began/occurred 2 day(s) ago. Associated injuries: The patient sustained injury to the low back, pain. Severity of symptoms: in the emergency department the symptoms are unchanged. history of herniated discs. The patient has not recently seen a physician. Patient was walking and fell forward with both hands in front of him and then fell onto his left side of his body. Patient reports low back pain that increases with standing and sitting and with movement. Negative for incontinence or lower extremity weakness. Historical: - Allergies: 10:41 No Known Allergies; iw - PMHx: 10:41 COPD; Hyperlipidemia; Hypertension; Lung Cancer; Myocardial infarction; iw - PSHx: 10:41 cardiac stent; colostomy and reversal; iw - Immunization history:: Adult Immunizations. - Social history:: Smoking status: Patient denies any tobacco usage or history of. ROS: 11:03 Constitutional: Negative for fever, chills, and weight loss, Neck: Negative for injury, pm1 pain, and swelling, Cardiovascular: Negative for chest pain, palpitations, and edema, Respiratory: Negative for shortness of breath, cough, wheezing, and pleuritic chest pain, Abdomen/GI: Negative for abdominal pain, nausea, vomiting, diarrhea, and constipation. 11:03 : Negative for injury, bleeding, discharge, and swelling, MS/Extremity: Negative for injury and deformity, Skin: Negative for injury, rash, and discoloration, Neuro: Negative for headache, weakness, numbness, tingling, and seizure. 11:03 Back: Positive for pain with movement, of the low back area. 11:03 All other systems are negative. Exam: 11:03 Constitutional: This is a well developed, well nourished patient who is awake, alert, pm1 and in no acute distress. Head/Face: Normocephalic, atraumatic. 11:03 Skin: Warm, dry with normal turgor. Normal color with no rashes, no lesions, and no evidence of cellulitis. MS/ Extremity: Pulses equal, no cyanosis. Neurovascular intact. Full, normal range of motion. 11:03 Eyes: Exam is negative for acute changes, Extraocular movements: no acute changes, Conjunctiva: no acute changes, no injection. 11:03 ENT: Exam is negative for acute changes, Mouth: no acute changes, Lips: normal, moist, Oral mucosa: normal, pink and intact, moist. 11:03 Cardiovascular: Exam negative for acute changes, Rate: normal, Rhythm: regular, Pulses: no pulse deficits are appreciated. 11:03 Respiratory: Exam negative for acute changes, respiratory distress, shortness of breath. 11:03 Back: vertebral tenderness, is not appreciated, muscle spasm, is appreciated in the right low back, Straight leg raises: right lower extremity does not illicit pain, left lower extremity does not illicit pain. 11:03 Neuro: Exam negative for acute changes, Orientation: is normal, Mentation: is normal, Motor: moves all fours, strength is 5/5 in all extremities, Sensation: no obvious gross deficits. Vital Signs: 10:43 BP 97 / 84; Pulse 84; Resp 16; Temp 98.2; Pulse Ox 97% on R/A; Weight 75.3 kg; Height 5 iw ft. 8 in. (172.72 cm); Pain 7/10; 11:59 BP 129 / 66; Pulse 82; Resp 16 S; Pulse Ox 99% on R/A; jd3 13:00 BP 108 / 65; Pulse 83; Resp 16 S; Pulse Ox 99% on R/A; jd3 10:43 Body Mass Index 25.24 (75.30 kg, 172.72 cm) iw MDM: 10:53 Patient medically screened. pm1 12:53 Data reviewed: vital signs. Data interpreted: Pulse oximetry: on room air is 99 %. pm1 Interpretation: normal. 12:53 Counseling: I had a detailed discussion with the patient and/or guardian regarding: the pm1 historical points, exam findings, and any diagnostic results supporting the discharge/admit diagnosis, radiology results, the need for outpatient follow up, a family practitioner, to return to the emergency department if symptoms worsen or persist or if there are any questions or concerns that arise at home. 09/24 11:00 Order name: Lumbar Spine (3 Views) XRAY; Complete Time: 12:17 pm1 Administered Medications: 11:16 Drug: Lidoderm Patch 5 % (700 mg/patch) 1 patches Route: Topical; Site: affected area; jd3 12:16 Follow up: Response: No adverse reaction jd3 11:16 Drug: HYDROcodone-acetaminophen 5 mg-325 mg 1 tabs Route: PO; jd3 12:15 Follow up: Response: No adverse reaction; RASS: Alert and Calm (0) jd3 13:11 Drug: fentaNYL (PF) 50 mcg Route: IM; Site: right deltoid; jd3 13:59 Follow up: Response: No adverse reaction; RASS: Alert and Calm (0) jd3 Disposition Summary: 09/24/21 13:38 Discharge Ordered Location: Home pm1 Problem: new pm1 Symptoms: have improved pm1 Condition: Stable pm1 Diagnosis - Low back pain pm1 - Fall on same level, unspecified pm1 Followup: pm1 - With: Emergency Department - When: As needed - Reason: Worsening of condition Followup: pm1 - With: Private Physician - When: 2 - 3 days - Reason: Recheck today's complaints, Continuance of care, Re-evaluation by your physician Discharge Instructions: - Discharge Summary Sheet pm1 - Fall Prevention in the Home, Adult pm1 - Musculoskeletal Pain pm1 Forms: - Medication Reconciliation Form pm1 - Thank You Letter pm1 - Antibiotic Education pm1 - Prescription Opioid Use pm1 Prescriptions: - Lidoderm 5 % Topical adhesive patch,medicated - apply 1 patch by TRANSDERMAL route once daily As needed 12 hours on and 12 pm1 hours off in a 24 hour period; 10 patch; Refills: 0, Product Selection Permitted - Tramadol 50 mg Oral Tablet - take 1 tablet by ORAL route every 8 hours as needed; 12 tablet; Refills: 0, pm1 Product Selection Permitted Signatures: Dispatcher [employer] Rosa Gan RN GERARDO iw Casey Keith NP TOE STAPLER pm1 Carter Car RN RN jSilviano Skinner RN RN bp
[2021-09-24 15:03] VITALS: TEMP 98.2
[2021-09-24 15:05] VITALS: O2SAT 99
[2021-09-24 15:07] VITALS: BP 108/65
== END 2021-09-24 14:00 | disposition home or self-care (01) ==
LOC: ER 10:26
DX: M54.50 Low back pain, unspecified (principal); W18.30XA Fall on same level, unspecified, initial encounter; I10 Essential (primary) hypertension; I25.2 Old myocardial infarction; Z85.118 Personal history of other malignant neoplasm of bronchus and lung; Z95.818 Presence of other cardiac implants and grafts
CPT/HCPCS: 72100; 96372; 99283; J3010

== ENCOUNTER 2023-03-05 15:55 | Emergency (ER) | payer OTHER ==
--- OUTSIDE RECORDS SUMMARY | 2023-03-05 15:59 | XMS REPORT | Continuity of Care Document ---
:1940 Author Organization [facility] t Address [address] [place] [address] Care Team Providers Name Role Phone Asked, No Pcp Primary Care Physician Unavailable Brisa Schneider Attending Clinician Eddie Moran Attending Clinician VENTURA VALDOVINOS Attending Clinician Unavailable VENTURA VALDOVINOS Admitting Clinician Unavailable Payers Payer Name Policy Type Policy Number Effective Date Expiration Date Jacob rocha [employer]ET[employer] [id number] 2020 00:00:00 Problems Condition Condition Condition Status Onset Resolution Last Treating Co mments Source Name Details Category Date Date Treatment Clinician Date Attention Attention Disease Active [facility] to [address] ileostomy ileostomy 00:00: Hosp simone 00 l CA of CA of Disease Active 2016-05 [facility] rect[facility]um [facility] 00:00: [facility] 00 l Elevated [facility]vated Disease [facility] Hyperchlor Hyperchlor Disease Active [facility] 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[facility] disease disease 00:00: Medical involving involving 00 [facility] [place] coronary coronary artery of artery of [place] heart heart without without angina angina pectoris pectoris Metastatic Metastatic Disease Recurre [facility] melanoma melanoma nce 17 [facility] lung to lung [facility] 00 Center Lower GI Lower GI Disease [facility] bleed [facility] [place] Hypocalcem Hypocalcem Disease Active [facility] ia 11-05 [facility]: [facility] 00 [place] Carcinoma Carcinoma Problem Active 2023-01-19 Memoria of colon of colon 01:18:27 l (disorder) (disorder) He rmann Active Problem 01/19/2023 [facility] Neurology Murray 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 Jimenez n (disorder) (disorder) Active Problem 01/19/2023 [facility] Neurology Murray Compressio Problem Active 2023-01-19 M emoria n fracture Compressio 01:18:27 l of n fracture Jimenez n thoracic of spine thoracic (disorder) spine (disorder) Active Problem 01/19/2023 [facility] Neurology Murray Hypertensi Hypertens Problem Active 2023-01-19 Memoria ve reina 01:18:27 l disorder, disorder, Herm gonzalo systemic systemic arterial arterial (disorder) (disorder) Active Problem 01/19/2023 [facility] Neurology [place] Malignant Problem Active 2023-01-19 Me moria melanoma Malignant 01:18:27 l (disorder) melanoma Herm gonzalo (disorder) Active Problem 01/19/2023 [facility] Neurology [place] Malignant Malignant Problem Active 2023-01-19 Memoria tumor of tumor of 01:18:27 l lung lung Kemal (disorder) (disorder) Active Problem 01/19/2023 [facility] Neurology [place] 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: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 Jimenez n uncertain of significan uncertain ce significan (disorder) ce (disorder) Active Problem 01/19/2023 [facility] Neurology [place] Neuralgia Neuralgia Problem Active 2023-01-19 Memoria (disorder) (disorder) 01:18:27 l Active [place] Problem 01/19/2023 [facility] Neurology [place] Paresthesi Paresthes Problem Active 2023-01-19 Memoria a ia 01:18:27 l (finding) (finding) Herm gonzalo Active Problem 01/19/2023 [facility] [place] 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 01:18:27 l disease disease [place] (disorder) (disorder) Active Problem 01/19/2023 [facility] [place] Prolapsed Prolapsed Problem Active 2023-01-19 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:18:27 l interverte interverte He rmann bral disc bral disc (disorder) (disorder) Active Problem 01/19/2023 [facility] [place] 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 Social History Social Habit Start Date Stop Date Quantity Comments Source Sexual [facility] History of tobacco Current smoker [facility] Social History 2021-10-07 2021-10-07 [facility] thomas 15:24:51 15:24:51 History of Social 2018-04-05 2018-04-[address] function 00:00:00 00:00:00 Hospital Alcohol intake 2017-08-01 2017-08-01 Current [facility] 00:00:00 00:00:00 non-drinker of Hospital alcohol (finding) Cigarettes smoked 2017-04-19 2017-04-[address] current (pack per 00:00:00 00:00:00 Hospita l day) - Reported Cigarette 2017-04-19 2017-04-19 [facility] pack-years 00:00:00 00:00:00 Hospital Tobacco use and 2017-04-19 2017-04-19 Former smokeless [facility] exposure 00:00:00 00:00:00 tobacco user Hospital Tobacco Comment 2017-04-05 2017-04-[address] 00:00:00 00:00:00 Hospital Sex Assigned At [address] [facility] 00:[facility]00 [facility]00 [facility] Smoking Status Start Date Stop Date Source Tobacco smoking status 2022-11-28 19:53:25 2022-11-28 19:53:25 [facility] Medications Ordered Filled Start Stop Current Ordering Indication Dosage Frequency Signature Comments Components Source Medication Medication Date Date Medication? Clinician (SIG) Name Name Dragan 30 Yes 30 mg = 1 M emoria mg oral 7-22 cap, PO, l delayed 20:40: Daily, # Jimenez n release 00 30 cap, 3 capsule Refill(s), Pharmacy: [facility], 165.1, cm, 12/08/21 11:31:00 CDT, Height, 73.693, kg, 12/08/21 11:31:00 CDT, Weight Dragan 30 No 30 mg = 1 M emoria mg oral 7-20 cap, PO, l delayed 16:43: Daily, X Jimenez n release 00 30 day, # capsule 30 cap, 3 Refill(s), Pharmacy: [facility], 165.1, cm, 12/08/21 11:31:00 CDT, Height, 73.693, kg, 12/08/21 11:31:00 CDT, Weight clopidogrel Yes TAKE 1 Ministerio gregorio 75 mg oral 5-19 TABLET BY l tablet 15:26: MOUTH ONCE Ankita nn 00 DAILY simvastatin Yes TAKE 1 Ministerio gregorio 80 mg oral 5-19 TABLET BY l tablet 15:26: MOUTH ONCE Ankita nn 00 DAILY AFTER LARGEST MEAL Metoprolol Yes TAKE 1 Memor ia Succinate 5-19 TABLET BY l ER 50 mg 15:26: MOUTH ONCE Her shabazz oral 00 DAILY tablet, extended release tramadol 50 Yes TAKE 1 Ministerio gregorio mg oral 5-19 TABLET BY l tablet 15:26: MOUTH Kemal 00 EVERY 8 HOURS NEEDED gabapentin Yes TAKE 1 Memor ia 300 mg oral 5-19 CAPSULE BY l capsule 15:26: MOUTH Kemal 00 THREE TIMES DAILY lidocaine Yes APPLY ONE Mem oria topical 5-19 PATCH l patch (5% 15:26: TOPICALLY Her shabazz film) 00 ONCE DAILY NEEDED TO CLEAN, DRY SKIN. LEAVE ON FOR 12 HOURS THEN REMOVE. MUST WAIT AT LEAST 12 HOURS BEFORE APPLYING PATCH(ES) AGAIN. CLOPIDOGREL 2018-0 Yes 75mg QD Take 75 mg [facility] BISULFATE 3-[address] (CLOPIDOGRE 14:55: daily. Hosp simone L ORAL) 06 l SIMVASTATIN 2018-0 Yes 80mg QD Take 80 mg [facility] ORAL 3-[address] 14:55: daily. Hospita 06 l metoprolol 2018-0 Yes 50mg QD Take 50 mg M ethodi succinate 3-[address] XL 14:55: daily. Hospita (TOPROL-XL) 06 l 50 mg 24 hr tablet Vital Signs Vital Name Observation Time Observation Value Comments Source Systolic (mm Hg) 2021-12-08 16:25:00 Ministerio rial Kemal Diastolic (mm Hg) 2021-12-08 16:25:00 Mem orial [place] Heart Rate 2021-12-08 16:25:00 [facility] [place] Respitory Rate 2021-12-08 16:25:00 Memori al [place] Height 2021-12-08 16:25:00 165.1 cm [facility] [place] Weight 2021-12-08 16:25:00 [facility] [place] BMI Calculated 2021-12-08 16:25:00 Memori al [place] Systolic (mm Hg) 2021-11-09 21:10:00 Ministerio rial [place] Diastolic (mm Hg) 2021-11-09 21:10:00 Mem orial [place] Heart Rate 2021-11-09 21:10:00 [facility] [place] Respitory Rate 2021-11-09 21:10:00 Memori al [place] Height 2021-11-09 21:10:00 167.64 cm [facility] [place] Weight 2021-11-09 21:10:00 [facility] [place] BMI Calculated 2021-11-09 21:10:00 Memori al [place] Systolic (mm Hg) 2021-10-07 15:13:00 Ministerio rial [place] Diastolic (mm Hg) 2021-10-07 15:13:00 Mem orial [place] Heart Rate 2021-10-07 15:13:00 [facility] [place] Respitory Rate 2021-10-07 15:13:00 Memori al [place] Height 2021-10-07 15:13:00 167.64 cm [facility] [place] Weight 2021-10-07 15:13:00 [facility] [place] BMI Calculated 2021-10-07 15:13:00 Jared Saavedra Procedures Procedure Date / Time Performed Performing Clinician [facility] e Chemotherapy [facility] care<sup>2</sup> Cataract [facility] [place] surgery<sup>1</sup> Ileostomy<sup>3</sup> [facility] H ermann Stent [facility] [place] placement<sup>4</sup> Plan of Care Planned Activity Planned Date Details Comments Source Future Scheduled 2023-03-02 COVID-19 VACCINE (#1) [facility] Test 19:15:42 [code = COVID-19 VACCINE (#1)] Future Scheduled 2023-03-02 SHINGLES VACCINES (1 Met [facility] Test 19:15:42 of 2) [code = SHINGLES VACCINES (1 of 2)] Future Scheduled 2023-03-02 RSV VACCINES > 60 YR Met [facility] Test 19:15:42 (1 - 1-dose 60+ series) [code = RSV VACCINES > 60 YR (1 - 1-dose 60+ series)] Future Scheduled 2023-03-02 65+ [facility] 19:15:42 VACCINE (1 - PCV) [code = 65+ PNEUMOCOCCAL VACCINE (1 - PCV)] Future Scheduled 2023-03-02 INFLUENZA VACCINE (#1) [facility] Test 19:15:42 [code = INFLUENZA VACCINE (#1)] Encounters Start End Encounter Admission Attending Care Care Encounter Source Date/Time Date/Time Type Type Clinicians Facility Department ID 2022-11-28 Outpatient [facility] [id number] [place] 14:53:46 [id number] [facility] 2022-07-06 Outpatient [facility] [id number] [place] 12:02:30 [id number] [facility] 2023-01-16 2023-01-16 Ambulatory MHIE [facility] [id number] Richardoria 20:00:00 20:00:00 Pre-Reg Specialty [address] [facility] 2023-01-16 2023-01-16 Outpatient TITI SchneiderMG [id number] 15:00:00 15:00:00 Brisa L 05 2022-12-05 2022-12-05 Outpatient MHIE RUTHIEIE [id number] Memoria 09:00:00 09:00:00 05 ananth Sommer 2022-02-01 2022-02-01 Ambulatory nullFlavo MNA [id number] Memoria 18:00:00 18:00:00 Pre-Reg r Neurology 04 l Myke Aldanaann 2022-02-01 2022-02-01 Outpatient MHIE MHIE [id number] Memoria 13:00:00 13:00:00 04 ananth [place] 2022-02-01 2022-02-01 [id number] 13:00:00 13:00:00 Eddie 04 Marciano 2021-12-08 2021-12-09 Outpatient nullFlavo MNA [id number] Memoria 16:15:00 04:59:59 r Neurology 03 l Murray Kemal 2021-12-08 2021-12-08 Outpatient QUYNH Moran [facility]IE [id number] 11:15:00 23:59:59 Eddie 03 Marciano 2021-12-08 2021-12-08 Outpatient MHIE RUTHIEIE [id number] Memoria 11:15:00 11:15:00 03 ananth Kemal 2021-11-09 2021-11-10 Outpatient nullFlavo MNA [id number] Memoria 21:00:00 04:59:59 r Neurology 02 anatnh Murray Kem[place] 2021-11-09 2021-11-09 Outpatient QUYNH Moran [facility] [id number] 16:00:00 23:59:59 Eddie 02 Marciano 2021-11-09 2021-11-09 Outpatient MHIE MHIE [id number] Memoria 16:00:00 16:00:00 02 ananth Kemal 2021-10-29 2021-10-29 Ambulatory nullFlavo MNA [id number] Memoria 14:30:00 14:30:00 Pre-Reg r Neurology 00 l Murray Kemal 2021-10-29 2021-10-29 Outpatient MHIE MHIE [id number] Memoria 09:30:00 09:30:00 00 ananth Sommer 2021-10-29 2021-10-29 Outpatient QUYNH Moran [facility] [id number] 09:30:00 09:30:00 Eddie 00 Marciano 2021-10-07 2021-10-08 Outpatient Blue [facility] [id number] Memoria 15:00:00 04:59:59 r Neurology 01 l Murraynajma Sommer 2021-10-07 2021-10-07 Outpatient QUYNH Moran [facility] [id number] 10:00:00 23:59:59 Eddie 01 Marciano 2021-10-07 2021-10-07 Outpatient RADHA JENNIFER [id number] Memoria 10:00:00 10:00:00 01 l Kemal Results Test Description Test Time Test Comments Results Result Comments Source BLOOD CULTURE 2016-11-10 11:01:00 Test Item Value Reference Range Interpretation Comme nts CULTURE (BEAKER) (test code = 1095) No growth in 5 days TISSUE [id number] 19:27:00Surgical Pathology Report Case: [id number] Authorizing Provider: Bruna Middleton Collected: 11/05/2016 1058 MD Anderson Ordering Location: [place] [address] ICU Received: 11/07/2016 0813 Pathologist: Steve Cabrales MD Specimen: Polyp, Colon - Rectosigmoid, BX OF THE RECTOSIGMOID MASS A. RECTOSIGMOID COLON, MASS, BIOPSY: - SUPERFICIAL FRAGMENTS OF ADENOCARCINOMA ( SEE COMMENT) - UNDERLYINGINVASIVE COMPONENT CANNOT BE EXCLUDED The biopsy consists of several fragments of superficially sampled adenocarcinoma. No definite desmoplastic stroma is seen to confidently assess invasion. Clinical and radiologic correlation isrecommended.[id number] GI bleedRectosigmoid mass biopsy The specimen is received in a formalin-filled container labeled with the patient's information and labeled " "rectosigmoid colon polyp" and consists of multiple fragments of tom-white soft tissue ranging from 0.1 to 0.4 cm, submitted entirely in A1. CG/ew Performed.BASIC METABOLIC [id number] 07:03:00 Test Item Value Reference Range Interpretation [...] (BEAKER) (test code = 413) 0.00BASIC METABOLIC [id number] 05:54:00 Test Item Value Reference Range Interpretation [...] (BEAKER) (test code = 413) 0.00HEMOGLOBIN AND [id number] 00:16:00 Test Item Value Reference Range Interpretation Comments HEMOGLOBIN (BEAKER) (test code = 9.8 GM/DL 13.0-16.8 L 410) HEMATOCRIT (BEAKER) (test code = 30.4 % 40.0-50.0 L 411) CARCINOEMBRYONIC ANTIGEN (CEA)2016-11-05 17:22:00 Test Item Value Reference Range Interpretation Comments CARCINOEMBRYONIC ANTIGEN (BEAKER) 1.7 ng/mL 0.0-5.0 (test code = 685) HEMOGLOBIN AND [id number] 16:51:00 Test Item Value Reference Range Interpretation Comments HEMOGLOBIN (BEAKER) (test code = 11.8 GM/DL 13.0-16.8 L 410) HEMATOCRIT (BEAKER) (test code = 37.0 % 40.0-50.0 L 411) HEMOGLOBIN AND [id number] 07:34:00 Test Item Value Reference Range Interpretation Comments HEMOGLOBIN (BEAKER) (test code = 12.1 GM/DL 13.0-16.8 L 410) HEMATOCRIT (BEAKER) (test code = 37.6 % 40.0-50.0 L 411) URINALYSIS W/ [id number] 07:10:00 Test Item Value Reference Range Interpretation [...] 1574) SOURCE(BEAKER) (test code = 2795) CALCIUM, [id number] 05:43:00 Test Item Value Reference Range Interpretation Comments CALCIUM IONIZED (BEAKER) (test 0.97 mmol/L 1.12-1.27 L code = 698) PH, BLOOD (BEAKER) (test code = 7.33 1810) CREATINE KINASE (CK), TOTAL AND [id number] 01:37:00 Test Item Value Reference Range Interpretation Comments CREATINE KINASE TOTAL (BEAKER) 40 U/L 29-200 (test code = 380) CREATINE KINASE-MB (BEAKER) (test 0.5 ng/mL 0.0-6.6 code = 750) CREATINE KINASE-MB INDEX (BEAKER) 1.3 % (test code = 395) Effective 04/08/2014: CK-MB Reference Range ChangeNew: 0.0-6.6 Previous: 0.0-4.9CK-MB Reference Range:<6.7 Normal6.7-10.0 Borderline>10.0 Abnormal TROPONIN [id number] 01:37:00 Test Item Value Reference Range Interpretation Comments TROPONIN I (BEAKER) (test code = 397) < ng/mL 0.00-0.03 Effective 04/08/2014: Reference Range ChangeNew: 0.00-0.03 Previous 0.00- 0.15Troponin I (TnI) levelsmust be interpreted in the context of the [...] failure, acidosis, acute neurological disease, and persistent tachyarrhythmia.BASIC METABOLIC [id number] 01:30:00 Test Item Value Reference Range Interpretation [...] APPLICABLE FOR DIALYSIS PATIEN TS. HEPATIC FUNCTION [id number] 01:30:00 Test Item Value Reference Range Interpretation [...] 347) hemolyzed CBC W/PLT COUNT & AUTO [id number] 01:17:00 Test Item Value Reference Range Interpretation [...] K/ L 0.00-0.20 (test code = 417) 0.00PT/[id number] 01:16:00 Test Item Value Reference Range Interpretation Comments PROTIME (BEAKER) (test code = 14.4 seconds 11.7-14.7 759) INR (BEAKER) (test code = 370) 1.1 <=5.9 PARTIAL THROMBOPLASTIN TIME 25.1 seconds 22.5-36.0 (BEAKER) (test code = 760) RECOMMENDED COUMADIN/WARFARIN INR THERAPY RANGESSTANDARD DOSE: 2.0 - 3.0 Includes: PROPHYLAXIS for venous thrombosis, systemic embolization; TREATMENT for venous thrombosis and/or pulmonary embolus.HIGH RISK: Target INR is 2.5-3.5 for patients with mechanical heart valves.PROTHROMBIN TIME/[id number] 01:15:00 Test Item Value Reference Range Interpretation Comments PROTIME (BEAKER) (test code = 14.4 seconds 11.7-14.7 759) INR (BEAKER) (test code = 370) 1.1 <=5.9 RECOMMENDED COUMADIN/WARFARIN INR THERAPY RANGESSTANDARD DOSE: 2.0 - 3.0 Includes: PROPHYLAXIS for venous thrombosis, systemic embolization; TREATMENT for venous thrombosis and/or pulmonary embolus.HIGH RISK: Target INR is 2.5-3.5 for patients with mechanical heart valves.
[2023-03-05] MEDS ORDERED: NA CHLORIDE 0.9% 1,000 ML ONE (17:09)
[2023-03-05 17:11] LABS: Absolute Lymphocytes (CBC) 2.1 K/uL (0.7-4.9); Hematocrit 46.3 % (39.6-49.0); Lymphocytes % 30.9 % (15.3-44.8); MCV 94.8 fL (80-100); MPV 6.4 fL (7.6-11.3); Platelets 301 thou/uL (152-406); RBC Red Blood Cell Count 4.88 M/uL (4.33-5.43)
[2023-03-05 17:23] LABS: Albumin 3.5 g/dL (3.4-5.0); Bilirubin Total 0.7 mg/dL (0.2-1.0); Potassium 3.9 mEq/L (3.5-5.1); Protein, Total 6.7 g/dL (6.4-8.2)
--- NOTE | 2023-03-05 18:34 | ER ---
Nurse's Notes [facility] Name: Jermaine Patricio Age: 82 yrs Sex: Male : 1940 Arrival Date: 03/05/2023 Time: 15:55 Bed 18 Private MD: Diagnosis: Diarrhea, unspecified Presentation: 03/05 16:10 Chief complaint: Patient states: diarrhea x 4 days, taken Imodium but no relief, has ko1 lost 10 lbs in 4 days. Had chemo on Monday (got pouch), it was taken off and has had diarrhea since. Coronavirus screen: At this time, the client does not indicate any symptoms associated with coronavirus-19. Ebola Screen: No symptoms or risks identified at this time. Initial Sepsis Screen: Does the patient meet any 2 criteria? No. Patient's initial sepsis screen is negative. Does the patient have a suspected source of infection? No. Patient's initial sepsis screen is negative. Risk Assessment: Do you want to hurt yourself or someone else? Patient reports no desire to harm self or others. Onset of symptoms was February 28, 2023. 16:10 Method Of Arrival: Wheelchair ko1 16:10 Acuity: NICOLE 3 ko1 Triage Assessment: 16:13 General: Appears in no apparent distress. Behavior is calm. Pain: Denies pain. GI: ko1 Reports lower abdominal pain, diarrhea. Historical: - Allergies: 16:13 No Known Allergies; ko1 - PMHx: 16:13 COPD; Hyperlipidemia; Hypertension; Lung Cancer; Myocardial infarction; ko1 - Immunization history:: Adult Immunizations up to date. - Social history:: Smoking status: Patient denies any tobacco usage or history of. Screenin:58 [facility] ED Fall Risk Assessment (Adult) History of falling in the last 3 months, me1 including since admission No falls in past 3 months (0 pts) Confusion or Disorientation No (0 pts) Intoxicated or Sedated No (0 pts) Impaired Gait No (0 pts) Mobility Assist Device Used No (0 pt) Altered Elimination Yes (1 pt) Score/Fall Risk Level 0 - 2 = Low Risk. Abuse screen: Denies threats or abuse. Nutritional screening: No deficits noted. Tuberculosis screening: No symptoms or risk factors identified. Assessment: 17:58 General: Appears uncomfortable, well groomed, well developed, well nourished, Behavior me1 is calm, cooperative, appropriate for age. General: Reports fatigue for 2-3 days, diarrhea x 4 days, no relief with imodium. Has lost 10 pounds in 4 days. Had chemo on Monday (got pouch). It was taken off and patient has had diarrhea since. Pain: Denies pain. Neuro: Level of Consciousness is awake, alert, obeys commands, Oriented to person, place, time, situation, Appropriate for age. Cardiovascular: Capillary refill < 3 seconds Patient's skin is warm and dry. Respiratory: Airway is patent Respiratory effort is even, unlabored, Respiratory pattern is regular, symmetrical. GI: Reports diarrhea, since 4 days ago. Vital Signs: 16:10 BP 112 / 75; Pulse 82; Resp 16; Temp 97.9; Pulse Ox 95% ; ko1 17:00 BP 125 / 71; Pulse 76; Resp 16; Pulse Ox 100% on R/A; me1 18:00 BP 119 / 67; Pulse 78; Resp 16; Pulse Ox 98% on R/A; me1 18:00 BP 149 / 66; Pulse 72; Resp 17; Pulse Ox 97% on R/A; me1 ED Course: 15:58 Patient arrived in ED. mg5 16:00 Carlos Enrique Lozano MD is Attending Physician. ec2 16:13 Triage completed. ko1 16:13 Arm band placed on right wrist. Patient notified of wait time. ko1 16:27 Tomasa Howard, RN is Primary Nurse. me1 16:54 CBC with Diff Sent. me1 16:54 CMP Sent. me1 16:54 Lipase Sent. me1 16:54 Inserted saline lock: 22 gauge in right antecubital area, using aseptic technique. me1 17:34 C.difficile Sent. me1 17:58 Patient has correct armband on for positive identification. Placed in gown. Bed in low me1 position. Call light in reach. Side rails up X2. Provided Education on: POC. Verbalized understanding. . 17:58 No provider procedures requiring assistance completed. me1 18:44 IV discontinued, intact, bleeding controlled, No redness/swelling at site. Pressure me1 dressing applied. Administered Medications: 16:58 Drug: NS 0.9% IV 1000 ml IV at 1 bolus Per protocol; 1000 mL bolus Route: IV; Rate: 1 me1 bolus; Site: right antecubital; 18:37 Follow up: IV Status: Completed infusion me1 18:42 Drug: AZITHromycin PO 500 mg PO once Route: PO; me1 19:03 Follow up: Response: No adverse reaction me1 Medication: 17:58 VIS not applicable for this client. me1 Outcome: 18:33 Discharge ordered by . ec2 19:02 Discharged to home via wheelchair, with family, me1 19:02 Condition: stable 19:02 Discharge instructions given to patient, family, Instructed on discharge instructions, follow up and referral plans. Demonstrated understanding of instructions, follow-up care, 19:03 Patient left the ED. mi1 Signatures: Lyn Sanon RN RN ko1 Tomasa Howard RN RN me1 Izabella Thapa mg5 Carlos Enrique Lozano MD MD ec2 Corrections: (The following items were deleted from the chart) 16:14 16:13 PSHx: cardiac stent; ko ko 16:14 16:13 PSHx: Colostomy and reversal; ko1 ko1
--- NOTE | 2023-03-05 18:34 | EDPHYS ---
Physician Documentation [facility] Name: Jermaine Patricio Age: 82 yrs Sex: Male : 1940 Arrival Date: 03/05/2023 Time: 15:55 Bed 18 Private MD: ED Physician Carlos Enrique Lozano HPI: 03/05 16:31 This 82 yrs old Male presents to ER via Wheelchair with complaints of ec2 Diarrhea. 16:31 Patient arrives today due to concern for multiple bouts of diarrhea. States that for ec2 the past 4 days has been having greater than 10 loose stools per day. Patient reports no fevers or chills, no nausea or vomiting. States that he has been tolerating p.o. without issue. States that he feels like he is dehydrated given the significant stool output.. Historical: - Allergies: 16:13 No Known Allergies; ko1 - PMHx: 16:13 COPD; Hyperlipidemia; Hypertension; Lung Cancer; Myocardial infarction; ko1 - Immunization history:: Adult Immunizations up to date. - Social history:: Smoking status: Patient denies any tobacco usage or history of. ROS: 16:31 Abdomen/GI: Diarrhea ec2 Exam: 16:31 Constitutional: PHYSICAL EXAMINATION: GENERAL: No acute distress HEENT: Extraocular ec2 motions intact CV: Regular rate LUNGS: No respiratory distress ABDOMEN: Soft, nontender, no guarding, not rigid SKIN: No rash NEUROLOGIC: Moves all extremities equally Vital Signs: 16:10 BP 112 / 75; Pulse 82; Resp 16; Temp 97.9; Pulse Ox 95% ; ko1 17:00 BP 125 / 71; Pulse 76; Resp 16; Pulse Ox 100% on R/A; me1 18:00 BP 119 / 67; Pulse 78; Resp 16; Pulse Ox 98% on R/A; me1 18:00 BP 149 / 66; Pulse 72; Resp 17; Pulse Ox 97% on R/A; me1 MDM: 16:00 Patient medically screened. ec2 16:31 Data reviewed: vital signs. ED course: Patient arrives today due to concern for ec2 significant diarrhea. Examination remarkable well-appearing nontoxic dividual was in no acute distress with reassuring vital signs and a generally benign abdomen. Will obtain lab work, give the patient crystalloid and reassess the patient. Currently considered process such as gastroenteritis, possible C. difficile colitis however patient with no recent antibiotics. Given the patient's relatively benign abdomen with reassuring vitals, I have a low clinical index patient for intra-abdominal abscess or infection to warrant CT scan at this time.. 17:56 ED course: CBC remarkable for reassuring blood counts, no leukocytosis, metabolic ec2 profile without marked electrolyte disturbance, no evidence of significant renal dysfunction. Chronic renal changes identified. When compared to external records, GFR appears similar. . 18:32 ED course: On reassessment patient reports improvement in his symptoms. I discussed the ec2 case with laboratory the results for the stool studies will not be available until tomorrow morning. I will start the patient on antibiotics for infectious diarrhea with azithromycin. I started them with continued fluid hydration. Will discharge home patient otherwise without any toxic symptoms, has a benign abdomen. Return precautions given.. 03/05 16:30 Order name: CBC with Diff; Complete Time: 17:22 ec2 03/05 16:30 Order name: CMP; Complete Time: 17:55 ec2 03/05 16:30 Order name: Lipase; Complete Time: 17:55 ec2 03/05 16:30 Order name: C.difficile ec2 03/05 16:30 Order name: IV Saline Lock; Complete Time: 16:54 ec2 03/05 16:30 Order name: Labs collected and sent; Complete Time: 16:54 ec2 Administered Medications: 16:58 Drug: NS 0.9% IV 1000 ml IV at 1 bolus Per protocol; 1000 mL bolus Route: IV; Rate: 1 me1 bolus; Site: right antecubital; 18:37 Follow up: IV Status: Completed infusion me1 18:42 Drug: AZITHromycin PO 500 mg PO once Route: PO; me1 19:03 Follow up: Response: No adverse reaction me1 Disposition Summary: 03/05/23 18:33 Discharge Ordered Notes: Location: Home ec2 Condition: Stable ec2 Diagnosis - Diarrhea, unspecified ec2 Discharge Instructions: - Discharge Summary Sheet ec2 - Diarrhea, Adult ec2 Forms: - Medication Reconciliation Form ec2 - Thank You Letter ec2 - Antibiotic Education ec2 - Prescription Opioid Use ec2 - Patient Portal Instructions ec2 - Leadership Thank You Letter ec2 Prescriptions: - azithromycin 500 mg Oral tablet - take 1 tablet ORAL route daily for 3 days start on day 2 of therapy; 3 tablet; ec2 Refills: 0, Product Selection Permitted Signatures: Dispatcher [employer] Lyn Zavala RN RN ko1 Tomasa Howard RN RN me1 Carlos Enrique Lozano MD MD ec2 Corrections: (The following items were deleted from the chart) 16:14 16:13 PSHx: cardiac stent; ko1 ko1 16:14 16:13 PSHx: Colostomy and reversal; ko1 ko1
[2023-03-05] MEDS ORDERED: AZITHROMYCIN 250 MG TAB ONE (18:52)
[2023-03-05 20:27] VITALS: TEMP 97.9
[2023-03-05 20:30] VITALS: BP 149/66; O2SAT 97
[2023-03-06 01:22] LABS: C.diff Antigen/Toxin Ag neg : Tox neg (NEG : NEG)
== END 2023-03-05 19:03 | disposition home or self-care (01) ==
LOC: ER 15:55
DX: R19.7 Diarrhea, unspecified (principal); I10 Essential (primary) hypertension; J44.9 Chronic obstructive pulmonary disease, unspecified; I25.2 Old myocardial infarction; Z85.118 Personal history of other malignant neoplasm of bronchus and lung
CPT/HCPCS: 96361; 85025; 36415; 87324; 83690; 80053; 96360; 99284; J7030

== ENCOUNTER 2024-08-28 23:09 | Inpatient (IN) | payer OTHER ==
[2024-08-28] MEDS ORDERED: NA CHLORIDE 0.9% 2,000 ML ONE (23:37)
[2024-08-29 00:14] LABS: Absolute Eosinophils 0.1 K/uL (0-0.5); Absolute Monocytes 0.8 K/uL (0.1-1.3); Absolute Neutrophil 6.8 K/uL (1.8-8.0); Basophils % 0.4 % (0-1.3); Eosinophils % 0.8 % (0-4.4); Hemoglobin 14.2 g/dL (13.6-17.9); Lymphocytes % 20.5 % (15.3-44.8); MCH 31.1 pg (27.0-35.0); MCHC 33.7 g/dL (32.0-36.0); MCV 92.3 fL (80-100); MPV 6.7 fL (7.6-11.3); Monocytes % 7.9 % (3.3-12.3); Neutrophils % 70.4 % (41.7-73.7); PT Prothrombin Time 12.5 SECONDS (10-13.0); Platelets 284 thou/uL (152-406); Protime INR 1.1; RBC Red Blood Cell Count 4.55 M/uL (4.33-5.43); Red Cell Distribution Width 15.9 % (12.1-15.2)
[2024-08-29 00:39] LABS: ALT/SGPT 17 U/L (16-61); AST/SGOT 18 U/L (15-37); Albumin 3.1 g/dL (3.4-5.0); Alkaline Phosphatase 78 U/L (45-117); Anion Gap 11.2 mEq/L (5.0-15.0); BUN Blood Urea Nitrogen 24 mg/dL (7-18); Bicarbonate 23 mEq/L (21-32); Bilirubin Total 0.6 mg/dL (0.2-1.0); Glomerular Filtration Rate 35 ml/min (=/>90); Glucose Level 117 mg/dL (74-106); NT PRO-BNP 534 pg/mL (<450); Potassium 4.2 mEq/L (3.5-5.1); Protein, Total 6.1 g/dL (6.4-8.2); Sodium Level 144 mEq/L (136-145); Troponin High Sensitivity 19.6 pg/mL (<58.9)
[2024-08-29 00:40] LABS: Bilirubin Direct < 0.2 mg/dL (0-0.2); Bilirubin Indirect, Calculated 0.4 mg/dL (0.2-0.8)
[2024-08-29] MEDS ORDERED: ACETAMINOPHEN 500 MG TAB ONE (00:49)
[2024-08-29] MEDS ORDERED: ONDANSETRON 4 MG/2 ML VIAL ONE (00:49)
[2024-08-29] MEDS ORDERED: MORPHINE 2 MG/ML SYR ONE (00:50)
[2024-08-29] MEDS ORDERED: methocarbamoL 750 MG TAB ONE (00:50)
--- NOTE | 2024-08-29 01:15 | RAD REPORT ---
EXAM DESCRIPTION: Head C Spine Mpr Wo Con CLINICAL HISTORY: 84 years Male, fall, neck injury TECHNIQUE: Helical CT axial images are obtained of the brain and cervical spine without IV contrast. Multiplanar reconstruction. This exam was performed according to our departmental dose-optimization program, which includes automated exposure control, adjustment of the mA and/or kV according to patie nt size and/or use of iterative reconstruction technique. COMPARISON: None were made available at time of this interpretation. FINDINGS: BRAIN: BRAIN: No infarcts. No parenchymal hemorrhage, intra-axial mass, mass effect, or midline shift. No ab normal extra-axial fluid collections. Mild periventricular white matter hypodensities. VENTRICLES: Ventricles are normal in size and configuration. No hydrocephalus. CALVARIUM: Mild right frontal scalp soft tissue swelling. Bone windows show no skull fracture or calv arial lesions. PARANASAL SINUSES AND MASTOIDS: Clear paranasal sinuses. Mastoid air cells are clear. CERVICAL SPINE: VERTEBRA: Cervical spine is in satisfactory alignment. No acute fracture or subluxation. Cervical oz tebra are normal in height. Craniocervical junction is intact. Moderate to severe anterior marginal osteophytes throughout the cervical spine. Mild to moderate posterior discogenic osteophytos is throughout the cervical spine. Moderate degenerative changes atlantodental interval. DISCS: Moderate to severe disc space narrowing. LEVELS: From the C2-C3 through the C7-T1 levels, no critical/acute canal or foraminal stenosis. SOFT TISSUES: Paravertebral soft tissues are unremarkable. IMPRESSION: 1. Mild right frontal scalp soft tissue swelling. 2. No acute intracranial disease. 3. Mild chronic small vessel ischemic white matter changes. 4. No acute fracture or CT evidence of traumatic injury to cervical spine. 5. Moderate cervical spondylosis. Electronically signed by: Petey Sanchez MD 08/29/2024 12:46 AM CDT N Due to temporary technical issues with the PACS/tenXer reporting system, reports are being rizwan d by the in-house radiologist without review as a courtesy to ensure prompt reporting the interpreting radiologist is fully responsible for the content of the report. Transcribed Date/Time: 08/29/2024 1:15 AM
--- NOTE | 2024-08-29 04:51 | ER ---
Nurse's Notes [facility] Name: Jermaine Patricio Age: 84 yrs Sex: Male : 1940 Arrival Date: 08/28/2024 Time: 23:09 Bed 14 Private MD: Diagnosis: Syncope and collapse, moderate dehydration, acute on chronic renal insufficiency, acute closed head injury, acute posterior neck injury Presentation: 08/28 23:16 Chief complaint: EMS states: TONED OUT FOR SYNCOPAL EPISODE AND FALL. EMS REPORTS PT'S dd2 SPOUSE CALLED AND REPORTED PT PASSED OUT AND FELL. UPON ARRIVAL, EMS FOUND PT LYING IN THE FLOOR, ALTERED MENTAL. PT BECAME AAOX3 SHORTLY AFTER ARRIVAL. Coronavirus screen: At this time, the client does not indicate any symptoms associated with coronavirus-19. Ebola Screen: No symptoms or risks identified at this time. Initial Sepsis Screen: Does the patient meet any 2 criteria? No. Patient's initial sepsis screen is negative. Does the patient have a suspected source of infection? No. Patient's initial sepsis screen is negative. Risk Assessment: Do you want to hurt yourself or someone else? Patient reports no desire to harm self or others. Onset of symptoms was August 28, 2024. Care prior to arrival: Cervical collar in place. Medication(s) given: Normal saline infusion, 600 CC IV initiated. 20 GA, in the left antecubital area, Glucose check: 117. 23:16 Method Of Arrival: EMS: [facility] dd2 23:16 Acuity: NICOLE 3 dd2 Triage Assessment: 23:25 General: Appears in no apparent distress. Behavior is calm, cooperative, appropriate dd2 for age. Pain: Denies pain. EENT: Pinna LACERATION TO LT PINNA. Neuro: Hart[place]e Agitation-Sedation Scale (RASS): 0 - Alert and Calm Level of Consciousness is awake, alert, obeys commands, Oriented to person, place, time, situation, Appropriate for age Moves all extremities. Speech is normal, Facial symmetry appears normal, Intact. Cardiovascular: Reports syncope, Denies chest pain, JVD is absent Patient's skin is warm and dry. Respiratory: No deficits noted. Airway is patent Respiratory effort is even, unlabored, Respiratory pattern is regular, symmetrical, Breath sounds are clear bilaterally. GI: No deficits noted. No signs and/or symptoms were reported involving the gastrointestinal system. : No deficits noted. No signs and/or symptoms were reported regarding the genitourinary system. Derm: Wound noted pinna of left ear Wound is SMALL LACERATION WITH DRIED BLOOD NOTED. Musculoskeletal: Circulation, motion, and sensation intact. Range of motion: intact in all extremities. Historical: - Allergies: 23:25 No Known Allergies; dd2 - PMHx: 23:25 COPD; Hyperlipidemia; Hypertension; Lung Cancer; Myocardial infarction; COLON CANCER dd2 (Myocardial infarction); - PSHx: 23:25 COLON RESECTION (Myocardial infarction); dd2 - Immunization history:: Adult Immunizations not up to date, Last tetanus immunization: > 10 years ago. - Infectious Disease History:: Denies. - Social history:: Smoking status: Patient denies any tobacco usage or history of. - Family history:: not pertinent. Screenin:33 [facility] ED Fall Risk Assessment (Adult) History of falling in the last 3 months, dd2 including since admission Yes- physiologic fall (2 pts) Confusion or Disorientation No (0 pts) Intoxicated or Sedated No (0 pts) Impaired Gait No (0 pts) Mobility Assist Device Used No (0 pt) Altered Elimination No (0 pt) Score/Fall Risk Level 0 - 2 = Low Risk Oriented to surroundings, Maintained a safe environment, Educated pt \T\ family on fall prevention, incl call for assistance when getting out of bed, Assessed \T\ reinforced patient's understanding of fall precautions, Hourly rounding (assess needs \T\ fall precautionary measures) done. Abuse screen: Denies threats or abuse. Denies injuries from another. Nutritional screening: No deficits noted. Tuberculosis screening: No symptoms or risk factors identified. Assessment: 23:33 Reassessment: SEE TRIAGE ASSESSMENT FOR FULL ASSESSMENT. dd2 08/29 02:40 Reassessment: MD NOTIFIED C-SPINE CLEARED; C-COLLAR REMOVED. mb12 07:15 Reassessment: Patient appears in no apparent distress at this time. Patient and/or db family updated on plan of care and expected duration. Pain level reassessed. Patient is alert, oriented x 3, equal unlabored respirations, skin warm/dry/pink. SEE trustedsafeTECH. Vital Signs: 08/28 23:16 BP 129 / 68; Pulse 69; Resp 16; Temp 98.1; Pulse Ox 96% on R/A; Weight 72.57 kg; Height dd2 5 ft. 9 in. ; Pain 0/; 08/29 00:45 BP 128 / 76; Pulse 60; Resp 15; Pulse Ox 92% 2 lpm ; mb12 01:00 BP 121 / 80; Pulse 66; Resp 18; Pulse Ox 90% 2 lpm ; mb12 01:15 BP 130 / 75; Pulse 66; Resp 20; Pulse Ox 93% 2 lpm ; mb12 01:30 BP 116 / 70; Pulse 65; Resp 16; Pulse Ox 92% 2 lpm ; mb12 02:30 BP 108 / 68; Pulse 65; Resp 16; Pulse Ox 95% on 3 lpm NC; dd2 03:16 BP 120 / 71; Pulse 59; Resp 16; Pulse Ox 96% on 3 lpm NC; dd2 07:15 BP 124 / 77; Pulse 87; Resp 18; Pulse Ox 98% ; db 08/28 23:16 Body Mass Index 23.63 (72.57 kg, 175.26 cm) dd2 08/28 23:16 Pain Scale: Adult dd2 [place] Coma Score: 08/28 23:33 Eye Response: spontaneous(4). Motor Response: obeys commands(6). Verbal Response: dd2 oriented(5). Total: 15. 04 04:43 Eye Response: spontaneous(4). Motor Response: obeys commands(6). Verbal Response: sp4 oriented(5). Total: 15. 04:49 Eye Response: spontaneous(4). Motor Response: obeys commands(6). Verbal Response: sp4 oriented(5). Total: 15. NIH Stroke Scale Scores: 04:43 NIHSS Score: 0 sp4 ED Course: 08/28 23:10 Patient arrived in ED. rv1 23:12 Armen Ge MD is Attending Physician. sp4 23:15 SAMY WRIGHT RN is Primary Nurse. dd2 23:25 Triage completed. dd2 23:25 Arm band placed on right wrist. dd2 23:33 Patient has correct armband on for positive identification. Bed in low position. Call dd2 light in reach. Side rails up X2. Client placed on continuous cardiac and pulse oximetry monitoring. NIBP monitoring applied. Door closed. Noise minimized. Warm blanket given. Pillow given. Verbal reassurance given. 23:33 No provider procedures requiring assistance completed. Maintain EMS IV. Dressing dd2 intact. Good blood return noted. Site clean \T\ dry. Gauge \T\ site: 20G LT AC. Flushed with 10 mL NS IV is patent, is intact, with fluids infusing freely, with good blood return. Patient maintains SpO2 saturation greater than 95% on room air. 08/29 00:25 CT Head C Spine In Process Unspecified. EDMS 04:37 Chest Abd Pelvis Wo Con In Process Unspecified. EDMS 04:50 Laverne Dejesus MD is Hospitalizing Provider. sp4 07:30 Provided Education on: ADMISSION. db 07:30 Patient admitted, IV remains in place. db Administered Medications: 08/28 23:39 Drug: NS 0.9% IV 1000 ml IV at 1000 ml once; to be given as a bolus over 60 minutes mb12 Route: IV; Rate: 1000 ml; Site: left antecubital; 08/29 01:45 Follow up: Response: No adverse reaction; IV Intake: 1000ml mb12 02:02 Follow up: IV Status: Completed infusion mb12 08/28 23:39 Drug: NS 0.9% IV 1000 ml IV at 125 ml/hr Per protocol; to be given as a bolus over 60 mb12 minutes Route: IV; Rate: 125 ml/hr; Site: left antecubital; 08/29 01:45 Follow up: Response: No adverse reaction; IV Intake: 1000ml mb12 02:02 Follow up: IV Status: Completed infusion mb12 01:05 Drug: morphine IVP or IV 2 mg IVP once over 4 mins Route: IVP; Infused Over: 4 mins; mb12 Site: left antecubital; :46 Follow up: Response: No adverse reaction mb12 01:05 Drug: Ondansetron IVP 4 mg IVP once; over 2 minutes Route: IVP; Site: left antecubital; mb12 01:46 Follow up: Response: No adverse reaction mb12 01:05 Drug: Methocarbamol PO 750 mg PO once Route: PO; mb12 :46 Follow up: Response: No adverse reaction mb12 01:05 Drug: Acetaminophen PO 1000 mg PO once Route: PO; mb12 01:46 Follow up: Response: No adverse reaction mb12 04:44 CANCELLED (Physician Discretion): ns 0.9% 1000 ml IV at 125 ml/hr Per protocol; to be mb12 given as a bolus over 60 minutes Medication: 07:30 VIS not applicable for this client. db Intake: 01:45 IV: 1000ml; Total: 1000ml. mb12 01:45 IV: 1000ml; Total: 2000ml. mb12 Outcome: 04:50 Decision to Hospitalize by Provider. sp4 07:30 Admitted to ER Hold. Please see [facility] for further documentation. db 07:30 Condition: stable 07:30 Instructed on the need for admit, 13:25 Patient left the ED. db NIH Stroke Scale - NIH Stroke Score Date: 08/29/2024 Time: 04:43 Total Score = 0 10. Dysarthria (speech clarity - read or repeat words) - 0(Normal) 11. Extinction and Inattention (visual/tactile/auditory/spatial/personal) - 0(No abnormality) 1a. Level of Consciousness (LOC) - 0(Alert) 1b. Level of Consciousness (LOC) (Month \T\ Age) - 0(Both) 1c. LOC Commands (Open \T\ Closes Eyes/Cleaner Greaser) - 0(Both) 2. Best Gaze (Lateral Gaze Paresis) - 0(Normal) 3. Visual Field Loss - 0(No visual loss) 4. Facial Palsy - 0(Normal) 5a. Left Arm: Motor (10-second hold) - 0(No drift) 5b. Right Arm: Motor (10-second hold) - 0(No drift) 6a. Left Leg: Motor (5-second hold - always test supine) - 0(No drift) 6b. Right Leg: Motor (5-second hold - always test supine) - 0(No drift) 7. Limb Ataxia (finger/nose \T\ heel/musa - test with eyes open) - 0(Absent) 8. Sensory Loss (pinprick arms/legs/face) - 0(Normal) 9. Best Language: Aphasia (description/naming/reading) - 0(No aphasia) Initials: sp4 Signatures: Dispatcher [employer] Radha Reyes RN RN Bambi Barrios Sergey, MD MD sp4 SAMY WRIGHT RN RN dd2 Jg Tolliver mb12 Corrections: (The following items were deleted from the chart) 04:38 00:25 In radiology for Chest Abdomen Pelvis Wo Con+CT.RAD.BRZ. EDMS EDMS
--- NOTE | 2024-08-29 04:51 | EDPHYS ---
Physician Documentation [facility] Name: Jermaine Patricio Age: 84 yrs Sex: Male : 1940 Arrival Date: 08/28/2024 Time: 23:09 Bed 14 Private MD: ED Physician Armen Ge HPI: 08/28 23:13 This 84 yrs old Male presents to ER via Unassigned with complaints of syncope sp4 and fall . 08/29 04:45 84-year-old male past medical history of COPD, hyperlipidemia, hypertension, lung sp4 cancer, myocardial infarction, colon cancer, presents with acute syncopal episode and fall at home associated with head injury. Patient reported neck pain. Also reported spinal pain.. 04:[address] report - IMPRESSION: 08/04/2024 Stable airspace opacification with volume loss sp4 in the dependent right posterior upper lobe, with no progressive hypermetabolic activity, favoring posttreatment changes versus chronic infectious or inflammatory process rather than viable malignancy. Stable posttreatment changes at the distal colonic anastomosis. No evidence of residual or recurrent disease. Other stable findings as above including stable left hydroureteronephrosis with a 1 cm distal ureteral calculus. Dictated By: Marcos Vick MD 07/25/24 [id number]. Historical: - Allergies: 08/28 23:25 No Known Allergies; dd2 - PMHx: 23:25 COPD; Hyperlipidemia; Hypertension; Lung Cancer; Myocardial infarction; COLON CANCER dd2 (Myocardial infarction); - PSHx: 23:25 COLON RESECTION (Myocardial infarction); dd2 - Immunization history:: Adult Immunizations not up to date, Last tetanus immunization: > 10 years ago. - Infectious Disease History:: Denies. - Social history:: Smoking status: Patient denies any tobacco usage or history of. - Family history:: not pertinent. ROS: 08/29 04:49 Constitutional: Negative for fever, chills, and weight loss, positive syncope, positive sp4 fall, positive head injury, positive neck pain, positive upper spinal pain. All other systems are negative, Exam: 04:43 Constitutional: This is a well developed, well nourished patient who is awake, frail sp4 elderly male Head/Face: Normocephalic, atraumatic. Eyes: Pupils equal round and reactive to light, extra-ocular motions intact. Lids and lashes normal. Conjunctiva and sclera are not injected. Cornea within normal limits. Periorbital areas with no swelling, redness, or edema. ENT: Nares patent. No nasal discharge, no septal abnormalities noted. Tympanic membranes are normal and external auditory canals are clear. Oropharynx with no redness, swelling, or masses, exudates, or evidence of obstruction, uvula midline. Mucous membranes moist. Neck: Trachea midline, no thyromegaly or masses palpated, and no cervical lymphadenopathy. Supple, full range of motion without nuchal rigidity, or vertebral point tenderness. Chest/axilla: Normal chest wall appearance and motion. Nontender with no deformity. No lesions are appreciated. Cardiovascular: Regular rate and rhythm with a normal S1 and S2. No gallops, murmurs, or rubs. Normal PMI, no JVD. No pulse deficits. Respiratory: Lungs have equal breath sounds bilaterally, clear to auscultation and percussion. No rales, rhonchi or wheezes noted. No increased work of breathing, no retractions or nasal flaring. Abdomen/GI: Soft, with normal bowel sounds. No distension or tympany. No guarding or rebound. No evidence of tenderness throughout. Back: No spinal tenderness. No costovertebral tenderness. Skin: Warm, dry with normal turgor. Normal color with no rashes, no lesions, and no evidence of cellulitis. MS/ Extremity: Pulses equal, no cyanosis. Neurovascular intact. Full, normal range of motion. Neuro: Awake and alert, GCS 15, oriented to person, place, time, and situation. Cranial nerves II-XII grossly intact. Motor strength 5/5 in all extremities. Sensory grossly intact. Psych: Awake, alert, with orientation to person, place and time. Behavior, mood, and affect are within normal limits 04:44 ECG was reviewed by the Attending Physician. EKG at 2343 sinus rhythm first-degree AV sp4 block rate 64 prolonged QT left axis deviation otherwise normal. Vital Signs: 08/28 23:16 BP 129 / 68; Pulse 69; Resp 16; Temp 98.1; Pulse Ox 96% on R/A; Weight 72.57 kg; Height dd2 5 ft. 9 in. ; Pain 0/10; 08/29 00:45 BP 128 / 76; Pulse 60; Resp 15; Pulse Ox 92% 2 lpm ; mb12 01:00 BP 121 / 80; Pulse 66; Resp 18; Pulse Ox 90% 2 lpm ; mb12 01:15 BP 130 / 75; Pulse 66; Resp 20; Pulse Ox 93% 2 lpm ; mb12 01:30 BP 116 / 70; Pulse 65; Resp 16; Pulse Ox 92% 2 lpm ; mb12 02:30 BP 108 / 68; Pulse 65; Resp 16; Pulse Ox 95% on 3 lpm NC; dd2 03:16 BP 120 / 71; Pulse 59; Resp 16; Pulse Ox 96% on 3 lpm NC; dd2 07:15 BP 124 / 77; Pulse 87; Resp 18; Pulse Ox 98% ; db 08/28 23:16 Body Mass Index 23.63 (72.57 kg, 175.26 cm) dd2 08/28 23:16 Pain Scale: Adult dd2 NIH Stroke Scale Scores: 04:43 NIHSS Score: 0 sp4 Vickie Coma Score: 08/28 23:33 Eye Response: spontaneous(4). Motor Response: obeys commands(6). Verbal Response: dd2 oriented(5). Total: 15. 08/29 04:43 Eye Response: spontaneous(4). Motor Response: obeys commands(6). Verbal Response: sp4 oriented(5). Total: 15. 04:49 Eye Response: spontaneous(4). Motor Response: obeys commands(6). Verbal Response: sp4 oriented(5). Total: 15. MDM: 08/28 23:14 Medical Screening Exam initiated sp4 08/29 02:36 ED course: EXAM DESCRIPTION: Head C Spine Mpr Wo Con CLINICAL HISTORY: 84 years Male, sp4 fall, neck injury TECHNIQUE: Helical CT axial images are obtained of the brain and cervical spine without IV contrast. Multiplanar reconstruction. This exam was performed according to our departmental dose-optimization program, which includes automated exposure control, adjustment of the mA and/or kV according to patient size and/or use of iterative reconstruction technique. COMPARISON: None were made available at time of this interpretation. FINDINGS: BRAIN: BRAIN: No infarcts. No parenchymal hemorrhage, intra-axial mass, mass effect, or midline shift. No abnormal extra-axial fluid collections. Mild periventricular white matter hypodensities. VENTRICLES: Ventricles are normal in size and configuration. No hydrocephalus. CALVARIUM: Mild right frontal scalp soft tissue swelling. Bone windows show no skull fracture or calvarial lesions. PARANASAL SINUSES AND MASTOIDS: Clear paranasal sinuses. Mastoid air cells are clear. CERVICAL SPINE: VERTEBRA: Cervical spine is in satisfactory alignment. No acute fracture or subluxation. Cervical vertebra are normal in height. Craniocervical junction is intact. Moderate to severe anterior marginal osteophytes throughout the cervical spine. Mild to moderate posterior discogenic osteophytosis throughout the cervical spine. Moderate degenerative changes atlantodental interval. DISCS: Moderate to severe disc space narrowing. LEVELS: From the C2-C3 through the C7-T1 levels, no critical/acute canal or foraminal stenosis. SOFT TISSUES: Paravertebral soft tissues are unremarkable. IMPRESSION: 1. Mild right frontal scalp soft tissue swelling. 2. No acute intracranial disease. 3. Mild chronic small vessel ischemic white matter changes. 4. No acute fracture or CT evidence of traumatic injury to cervical spine. 5. Moderate cervical spondylosis. Electronically signed by: Petey Sanchez MD 08/29/2024. 04:32 ED course: CT head and C spine - SOFT TISSUES: Paravertebral soft tissues are sp4 unremarkable. IMPRESSION: 1. Mild right frontal scalp soft tissue swelling. 2. No acute intracranial disease. 3. Mild chronic small vessel ischemic white matter changes. 4. No acute fracture or CT evidence of traumatic injury to cervical spine. 5. Moderate cervical spondylosis. Electronically signed by: Petey Sanchez MD 08/29/2024. 04:49 Differential diagnosis: Contusion of Hematoma on Intracranial bleed- Concussion sp4 cerebral contusion. Data reviewed: vital signs, nurses notes, EMS record, old medical records, lab test result(s), EKG, radiologic studies, CT scan. Consideration of Admission/Observation Escalation of care including admission/observation considered. ED course: Positive for acute fall and head injury. 07:05 ED course: CT chest , abdomen , pelvis - ---COMBINED--- MUSCULOSKELETAL: Grade 2 sp4 anterolisthesis of L5 on S1. Remote appearing T12 compression fracture. Remote rib fractures. ADDITIONAL FINDINGS: None. IMPRESSION: No evidence of significant trauma to the chest, abdomen, or pelvis. . 08/28 23:13 Order name: Basic Metabolic Panel; Complete Time: 02:36 sp4 08/28 23:13 Order name: CBC with Diff; Complete Time: 02:36 sp4 08/28 23:13 Order name: LFT's; Complete Time: 02:36 sp4 08/28 23:13 Order name: Magnesium; Complete Time: 02:36 sp4 08/28 23:13 Order name: NT PRO-BNP; Complete Time: 02:36 sp4 08/28 23:13 Order name: PT-INR; Complete Time: 02:36 sp4 08/28 23:13 Order name: Troponin HS; Complete Time: 02:36 sp4 08/29 07:19 Order name: CBC with Automated Diff EDMS 08/29 07:19 Order name: CBC with Automated Diff EDMS 08/29 07:19 Order name: CBC with Automated Diff EDMS 08/29 07:19 Order name: CBC with Automated Diff EDMS 08/29 07:19 Order name: Comprehensive Metabolic Panel EDMS 08/29 07:19 Order name: Comprehensive Metabolic Panel EDMS 08/29 07:19 Order name: Comprehensive Metabolic Panel EDMS 08/29 07:19 Order name: Comprehensive Metabolic Panel EDMS 08/29 07:19 Order name: T4 Free EDMS 08/29 07:19 Order name: T4 Free EDMS 08/29 07:19 Order name: Thyroid Stimulating Hormone EDMS 08/29 07:19 Order name: Thyroid Stimulating Hormone EDMS 08/29 07:19 Order name: Troponin High Sensitivity EDMS 08/29 07:19 Order name: Troponin High Sensitivity; Complete Time: 20:27 EDMS 08/29 07:19 Order name: Troponin High Sensitivity; Complete Time: 20:27 EDMS 08/28 23:13 Order name: CT Head C Spine; Complete Time: 20:27 sp4 08/29 04:27 Order name: Chest Abd Pelvis Wo Con; Complete Time: 06:05 EDMS 08/29 07:19 Order name: Echo with Doppler EDMS 08/29 07:20 Order name: Physical Therapy Consult EDMS 08/28 23:13 Order name: Cardiac monitoring; Complete Time: 23:39 sp4 08/28 23:13 Order name: EKG - Nurse/Tech; Complete Time: 23:47 sp4 08/28 23:13 Order name: IV Saline Lock; Complete Time: 23:39 sp4 08/28 23:13 Order name: Labs collected and sent; Complete Time: 23:39 sp4 08/28 23:13 Order name: O2 Per Protocol; Complete Time: 23:39 sp4 08/28 23:13 Order name: O2 Sat Monitoring; Complete Time: 23:39 sp4 EC/09 23:43 Rate is 64 beats/min. Rhythm is regular, Normal Sinus Rhythm. Left axis deviation sp4 noted. WA interval is prolonged. QRS interval is normal. QT interval is prolonged. No Q waves. T waves are Normal. No ST changes noted. Clinical impression: No evidence of ischemia. Interpreted by me. Reviewed by me. Administered Medications: 23:39 Drug: NS 0.9% IV 1000 ml IV at 1000 ml once; to be given as a bolus over 60 minutes mb12 Route: IV; Rate: 1000 ml; Site: left antecubital; 08/29 01:45 Follow up: Response: No adverse reaction; IV Intake: 1000ml mb12 02:02 Follow up: IV Status: Completed infusion mb12 08/28 23:39 Drug: NS 0.9% IV 1000 ml IV at 125 ml/hr Per protocol; to be given as a bolus over 60 mb12 minutes Route: IV; Rate: 125 ml/hr; Site: left antecubital; 08/29 01:45 Follow up: Response: No adverse reaction; IV Intake: 1000ml mb12 02:02 Follow up: IV Status: Completed infusion mb12 01:05 Drug: morphine IVP or IV 2 mg IVP once over 4 mins Route: IVP; Infused Over: 4 mins; mb12 Site: left antecubital; 01:46 Follow up: Response: No adverse reaction mb12 01:05 Drug: Ondansetron IVP 4 mg IVP once; over 2 minutes Route: IVP; Site: left antecubital; mb12 01:46 Follow up: Response: No adverse reaction mb12 01:05 Drug: Methocarbamol PO 750 mg PO once Route: PO; mb12 01:46 Follow up: Response: No adverse reaction mb12 01:05 Drug: Acetaminophen PO 1000 mg PO once Route: PO; mb12 01:46 Follow up: Response: No adverse reaction mb12 04:44 CANCELLED (Physician Discretion): ns 0.9% 1000 ml IV at 125 ml/hr Per protocol; to be mb12 given as a bolus over 60 minutes Disposition Summary: 08/29/24 04:50 Hospitalization Ordered Notes: Hospitalization Status: Inpatient Admission sp4 Provider: Laverne Dejesus sp4 Condition: Stable sp4 Problem: new sp4 Symptoms: have improved sp4 Bed/Room Type: Standard sp4 Location: Telemetry/MedSurg (Inpatient)(08/29/24 12:04) 6 Room Assignment: [facility](08/29/24 12:04) [facility] Diagnosis - Syncope and collapse, moderate dehydration, acute on chronic renal insufficiency, sp4 acute closed head injury, acute posterior neck injury Forms: - Medication Reconciliation Form sp4 - SBAR form sp4 - Leadership Thank You Letter sp4 NIH Stroke Scale - NIH Stroke Score Date: 08/29/2024 Time: 04:43 Total Score = 0 10. Dysarthria (speech clarity - read or repeat words) - 0(Normal) 11. Extinction and Inattention (visual/tactile/auditory/spatial/personal) - 0(No abnormality) 1a. Level of Consciousness (LOC) - 0(Alert) 1b. Level of Consciousness (LOC) (Month \T\ Age) - 0(Both) 1c. LOC Commands (Open \T\ Closes Eyes/Government Affairs Fellow) - 0(Both) 2. Best Gaze (Lateral Gaze Paresis) - 0(Normal) 3. Visual Field Loss - 0(No visual loss) 4. Facial Palsy - 0(Normal) 5a. Left Arm: Motor (10-second hold) - 0(No drift) 5b. Right Arm: Motor (10-second hold) - 0(No drift) 6a. Left Leg: Motor (5-second hold - always test supine) - 0(No drift) 6b. Right Leg: Motor (5-second hold - always test supine) - 0(No drift) 7. Limb Ataxia (finger/nose \T\ heel/musa - test with eyes open) - 0(Absent) 8. Sensory Loss (pinprick arms/legs/face) - 0(Normal) 9. Best Language: Aphasia (description/naming/reading) - 0(No aphasia) Initials: sp4 Signatures: Dispatcher [employer] EDMS Woodrow Pandey, PAWN BROKER-C PAWN BROKER-Cla1 Erica Pardo, RN RN vc1 Sandra Hawley bc6 Armen Ge MD MD sp4 SAMY WRIGHT RN RN dd2 Jg Tolliver mb12 Corrections: (The following items were deleted from the chart) 08/28 23:14 23:14 BASIC METABOLIC PANEL+C.LAB.BRZ ordered. EDMS EDMS 23:14 23:14 CBC+H.LAB.BRZ ordered. EDMS EDMS 23:14 23:14 HEPATIC FUNCTION+C.LAB.BRZ ordered. EDMS EDMS 23:14 23:14 MAGNESIUM+C.LAB.BRZ ordered. EDMS EDMS 23:14 23:14 PROBNP+C.LAB.BRZ ordered. EDMS EDMS 23:14 23:14 PROTIME (+INR)+COAG.LAB.BRZ ordered. EDMS EDMS 23:14 23:14 Troponin High Sensitivity+C.LAB.BRZ ordered. EDMS EDMS 23:14 23:14 Head C Spine MPR Wo Con+CT.RAD.BRZ ordered. EDMS EDMS 08/29 04:38 08/28 23:14 Chest Abdomen Pelvis Wo Con+CT.RAD.BRZ ordered. EDMS EDMS 08/29 04:44 04:42 NS 0.9% IV 1000 ml IV at 125 ml/hr Per protocol; to be given as a bolus mb12 over 60 minutes ordered. sp4 05:14 04:50 Telemetry/MedSurg (Inpatient) sp4 vc1 05:14 04:50 sp4 vc1 12:04 05:14 [facility] ER HOLD vc1 bc6 12:04 05:14 ERHOLD- vc1 bc6
--- NOTE | 2024-08-29 06:05 | RAD REPORT ---
EXAM: Chest Abd Pelvis Wo Con CLINICAL INDICATION: Male, 84 years old FALL TECHNIQUE: CT chest, abdomen and pelvis was performed, without IV contrast, [facility] Axial, sagittal and coronal reconstructions were obtained. One or more of the following dose reduction techniques were used: Automated exposure control, adjustment of the mA and/or kV according to the patient size, and/or iterative reconstruction. Unless otherwise specified, incidental findings do not require dedicated imaging follow-up. [id number]. COMPARISON: PET/CT 07/25/2024 FINDINGS: The lack of intravenous contrast limits the sensitivity of this exam for evaluation of solid visceral organs, vascular structures, and retroperitoneum. ---THORAX--- LOWER NECK AND CHEST WALL: Visualized thyroid gland and soft tissues are normal. LUNGS AND AIRWAYS: Post treatment changes in the right upper lobe that are similar.No suspicious and/ or stable pulmonary nodules. PLEURA: No pleural effusion. No pneumothorax. MEDIASTINUM AND LYMPH NODES: No mediastinal mass or fluid collection. Stable size mediastinal, hilar, and axillary lymph nodes. Mild distal esophageal thickening. THORACIC AORTA: No thoracic aortic aneurysm. Atherosclerotic changes are present. PULMONARY ARTERIES: Caliber is within normal limits. HEART: Normal heart size. Severe coronary artery calcifications.No significant pericardial effusion. ---ABDOMEN/PELVIS--- UPPER GI: No significant abnormality. LIVER: No significant focal abnormality. GALLBLADDER/BILE DUCTS: No biliary ductal dilatation.? PANCREAS: No mass, ductal dilation, or raj-pancreatic fluid. SPLEEN: Unremarkable. ADRENALS: No adrenal masses. KIDNEYS AND URETERS: Chronic left-sided hydronephrosis.No suspicious renal mass.Nonobstructing renal calculi. ABDOMINAL AORTA AND OTHER VESSELS: Normal caliber aorta and IVC. PERITONEUM: No abnormal free fluid. No free air. LYMPH NODES: No pathologic lymphadenopathy. ABDOMINAL WALL: Unremarkable SMALL BOWEL/COLON: Colorectal anastomosis. Presacral thickeningis similar. Mild diverticulosis withou t diverticulitis. Normal appendix URINARY BLADDER: Underdistended but grossly unremarkable. REPRODUCTIVE ORGANS: No pathologic process. ---COMBINED--- MUSCULOSKELETAL: Grade 2 anterolisthesis of L5 on S1. Remote appearing T12 compression fracture. Dima te rib fractures. ADDITIONAL FINDINGS: None. IMPRESSION: No evidence of significant trauma to the chest, abdomen, or pelvis.
[2024-08-29] MEDS ORDERED: ALBUTEROL 2.5 MG/3 ML NEB SOL NEB PRN (07:15)
[2024-08-29] MEDS ORDERED: TRAMADOL HCL 50 MG TAB PO PRN (07:18)
[2024-08-29] MEDS: NA CHLORIDE 0.9% 1,000 ML IV SCH (08:00)
[2024-08-29] MEDS: HEPARIN 5000 UNIT/ML 1 ML VIAL SQ SCH (09:00)
--- NOTE | 2024-08-29 09:01 | P.HP ---
Certification for Inpatient Patient admitted to: Observation With expected LOS: <2 Midnights Patient will require the following post-hospital care: None Practitioner: I am a practitioner with admitting privileges, knowledge of patient current condition, hospital course, and medical plan of care. Services: Services provided to patient in accordance with Admission requirements found in Title 42 Section 412.3 of the Code of Federal Regulations Patient History Date of Service: 08/29/24 Reason for admission: Syncope, acute kidney injury History of Present Illness: 84-year-old male with history of CAD with previous stent, colon cancer with mets to lung about 6 years ago, COPD, hypertension, neuropathy presents the emergency department chief complaint of syncope. Reports that he has been feeling dizzy lately when he stands up, after standing and trying to walk to the bathroom he had a syncopal event preceded by dizziness and shortness of breath with loss of consciousness. He denies any recent changes in his medications, denies chest pain. Patient was evaluated in the emergency department his initial high sensitive troponin was 19.[address] head/C-spine/chest abdomen pelvis was negative for acute findings. 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 Patient was admitted for further evaluation and management of syncope, acute kidney injury Allergies No Known Allergies Allergy (Verified 01/15/21 11:35) Home Medications: Clopidogrel Bisulfate [Plavix] 75 mg PO DAILY 02/18/16 Metoprolol Succinate [Toprol Xl] 50 mg PO DAILY 02/18/16 Simvastatin 80 mg PO DAILY 02/18/16 - Past Medical/Surgical History -: Colon cancer with mets to lungs -: COPD -: Hypertension -: CAD -: Neuropathy - Family History Family History: Reviewed- Non-Contributory - Social History Smoking Status: Former smoker Alcohol use: No CD- Drugs: No Caffeine use: Yes Place of Residence: Home Review of Systems 10-point ROS is otherwise unremarkable Cardiovascular: Light Headedness, Other (Syncope) Neurological: Other (Dizziness/near syncope) Physical Examination - Physical Exam General: Alert, In no apparent distress, Oriented x3 HEENT: Atraumatic, PERRLA, EOMI Neck: Supple, 2+ carotid pulse no bruit, No LAD Respiratory: Clear to auscultation bilaterally, Normal air movement Cardiovascular: Regular rate/rhythm, Normal S1 S2 Gastrointestinal: Normal bowel sounds, No tenderness Musculoskeletal: No tenderness Integumentary: No rashes Neurological: Normal speech, Normal strength at 5/5 x4 extr, Normal affect - Studies Laboratory Data (last 24 hrs) 08/28/24 08/28/24 08/28/24 23:32 23:32 23:32 WBC 9.70 Hgb 14.2 Hct 42.0 Plt Count 284 PT 12.5 INR 1.10 Sodium 144 Potassium 4.2 BUN 24 H Creatinine 1.89 H Glucose 117 H Magnesium 2.0 Total Bilirubin 0.6 AST 18 ALT 17 Alkaline Phosphatase 78 Assessment and Plan - Plan Assessment: Dizziness, syncope Acute kidney injury History of CAD COPD Hypertension Neuropathy Plan: Dizziness, syncope Acute kidney injury Denies any recent changes in medications Initial high sensitive troponin negative Plan troponins, monitor on telemetry Echocardiogram ordered, cardiology consulted Continue gentle IV fluids, recheck chemistry in the morning Orthostatic vitals ordered History of CAD COPD Hypertension Neuropathy Continue home medications when verified DVT PPX: Heparin subcu Code status: Full code Discharge Plan: Home Plan to discharge in: 24 Hours - Advance Directives Does patient have a Living Will: No Does patient have a Durable POA for Healthcare: No - Code Status/Comfort Care Code Status Assessed: Yes (Full code) Critical Care: No Time Spent Managing Pts Care (In Minutes): 66
[2024-08-29 09:50] VITALS: BMI 23.6
[2024-08-29] MEDS ORDERED: HEPARIN 5000 UNIT/ML 1 ML VIAL ONE (10:12)
[2024-08-29] MEDS ORDERED: NA CHLORIDE 0.9% 0 ML ONE (10:12)
--- NOTE | 2024-08-29 10:42 | P.CNS ---
Date of Consult: 08/29/24 Chief Complaint: Syncope, acute kidney injury History of Present Illness: Patient with PMH of CAD PCI LAD almost 10 years ago, HTN, HLD presented with dizzy spell and syncope, he report getting up at night to use the bathroom then he felt dizzy and passed out, denies chest pain, no palpitations, no PUENTES or SOB, patient mention that his BP usually runs low on occasions. Allergies No Known Allergies Allergy (Verified 01/15/21 11:35) Home medications list reviewed: Yes Home Medications: Clopidogrel Bisulfate [Plavix] 75 mg PO DAILY 02/18/16 Metoprolol Succinate [Toprol Xl] 50 mg PO DAILY 02/18/16 Simvastatin 80 mg PO DAILY 02/18/16 Gabapentin 300 mg PO PRN PRN 08/29/24 Tramadol HCl [Ultram] 50 mg PO PRN PRN 08/29/24 - Past Medical/Surgical History -: Colon cancer with mets to lungs -: COPD -: Hypertension -: CAD -: Neuropathy - Social History Alcohol use: No CD- Drugs: No Caffeine use: Yes Place of Residence: Home Review of Systems 10-point ROS is otherwise unremarkable Physical Examination General: Alert, In no apparent distress HEENT: Atraumatic, PERRLA, Mucous membr. moist/pink, EOMI, Sclerae nonicteric Neck: Supple, 2+ carotid pulse no bruit, No LAD, Without JVD or thyroid abnormality Respiratory: Clear to auscultation bilaterally, Normal air movement Cardiovascular: Regular rate/rhythm, Normal S1 S2 Gastrointestinal: Normal bowel sounds, No tenderness Musculoskeletal: No tenderness Integumentary: No rashes Neurological: Normal gait, Normal speech, Normal tone, Normal affect Lymphatics: No axilla or inguinal lymphadenopathy Laboratory Data (last 24 hrs) 08/28/24 08/28/24 08/28/24 23:32 23:32 23:32 WBC 9.70 Hgb 14.2 Hct 42.0 Plt Count 284 PT 12.5 INR 1.10 Sodium 144 Potassium 4.2 BUN 24 H Creatinine 1.89 H Glucose 117 H Magnesium 2.0 Total Bilirubin 0.6 AST 18 ALT 17 Alkaline Phosphatase 78 - Problems (1) Syncope Current Visit: Yes Status: Acute Plan: most likely vasovagal, orthostatic obtain orthostatic vitals. get echo continue to trend cardiac enzymes for 3 sets get echo monitor on tele (2) CAD (coronary artery disease) Current Visit: Yes Status: Acute Plan: no active chest pain or EKG changes, troponin negative so far. get echo outpatient follow up with cardiology for stress test (3) HTN (hypertension) Current Visit: Yes Status: Acute Plan: BP is soft off medications. keep holding his BP medications and monitor BP
--- NOTE | 2024-08-29 11:45 | EKG ---
Test Date: 2024-08-28 Test Time: 23:43:12 Clerical Supervisor: MB MEASUREMENT RESULTS: Intervals: Rate: 64 CT: 224 QRSD: 92 QT: 466 QTc: 480 [place]: P: 51 CT: 224 QRS: -44 T: -6 INTERPRETIVE STATEMENTS: Sinus rhythm with 1st degree AV block Left axis deviation Prolonged QT Abnormal ECG Compared to ECG 03/01/2021 12:25:23 First degree AV block now present Prolonged QT interval now present Myocardial infarct finding no longer present Electronically Signed On 08-29-24 11:44:26 CDT by Jose Peryr
[2024-08-29 17:12] LABS: Anion Gap 10.9 mEq/L (5.0-15.0); Troponin High Sensitivity 21.7 pg/mL (<58.9)
[2024-08-29 17:14] LABS: Magnesium 1.9 mg/dL (1.6-2.4); Potassium 4.9 mEq/L (3.5-5.1)
--- NOTE | 2024-08-29 20:28 | RAD REPORT ---
EXAMINATION: US Extrem Venous W Compress Arie CLINICAL INDICATION: [facility] MAIN r/o dvt Y TECHNIQUE: Complete bilateral duplex sonography of the BILATERAL lower extremity veins was performed. The examination included compression for vein patency, color Doppler imaging and flow augmentation in response to distal compression of the distal external iliac, common femoral, femoral, popliteal, t ibial, and great and small saphenous veins. COMPARISON: No prior exam. FINDINGS: Duplex sonography testing of the veins of the BILATERAL lower extremity was performed. Color flow nick ging shows all veins to be compressible with [id number] color filling. Pulsatile and phasic flow is present within all lower extremity deep and superficial veins examined. IMPRESSION: There is no deep vein or superficial vein thrombosis.
[2024-08-30 06:23] LABS: Absolute Basophils 0.1 K/uL (0-0.5); Absolute Eosinophils 0.3 K/uL (0-0.5); Absolute Lymphocytes (CBC) 2.1 K/uL (0.7-4.9); Absolute Monocytes 0.9 K/uL (0.1-1.3); Absolute Neutrophil 7.1 K/uL (1.8-8.0); Basophils % 0.7 % (0-1.3); Eosinophils % 2.7 % (0-4.4); Hematocrit 38.8 % (39.6-49.0); Hemoglobin 13.1 g/dL (13.6-17.9); MCH 31.5 pg (27.0-35.0); MCHC 33.7 g/dL (32.0-36.0); MCV 93.5 fL (80-100); MPV 6.5 fL (7.6-11.3); Monocytes % 8.4 % (3.3-12.3); Neutrophils % 68.2 % (41.7-73.7); Platelets 238 thou/uL (152-406); RBC Red Blood Cell Count 4.15 M/uL (4.33-5.43); Red Cell Distribution Width 15.6 % (12.1-15.2)
[2024-08-30 06:55] LABS: Anion Gap 8.7 mEq/L (5.0-15.0); Bilirubin Total 0.4 mg/dL (0.2-1.0); Globulin 2.9 g/dL (2.3-3.5); Potassium 4.7 mEq/L (3.5-5.1); Protein, Total 5.9 g/dL (6.4-8.2); Thyroid Stimulating Hormone 1.98 uIU/mL (0.358-3.740)
--- NOTE | 2024-08-30 07:08 | ECHO ---
HEIGHT: 5 ft 9 in WEIGHT: 160 lb 0 oz DATE OF STUDY: 08/29/[address]: Woodrow Pandey NP 2-DIMENSIONAL: YES M.MODE: YES DOPPLER: YES COLOR FLOW: YES TDS: PORTABLE: YES DEFINITY: BUBBLE STUDY: DIAGNOSIS: SYNCOPE CARDIAC HISTORY: CATHERIZATION: YES SURGERY: YES PROSTHETIC VALVE: YES PACEMAKER: NO MEASUREMENTS (cm) DIASTOLIC (NORMALS) SYSTOLIC (NORMALS) IVSd 1.1 (0.6-1.2) LA Diam 3.3 (1.9-4.0) LVEF 60-65% LVIDd 4.1 (3.5-5.7) LVIDs 2.6 (2.0-3.5) %FS 36% LVPWd 1.1 (0.6-1.2) Ao Diam 3.7 (2.0-3.7) 2 DIMENSIONAL ASSESSMENT: RIGHT ATRIUM: MILDLY DILATED LEFT ATRIUM: NORMAL RIGHT VENTRICLE: MILDLY DILATED LEFT VENTRICLE: NORMAL TRICUSPID VALVE: MILD TRICUSPID REGURGITATION MITRAL VALVE: NORMAL PULMONIC VALVE: NORMAL AORTIC VALVE: NORMAL PERICARDIAL EFFUSION: NONE AORTIC ROOT: NORMAL LEFT VENTRICULAR WALL MOTION: NORMAL DOPPLER/COLOR FLOW: GRADE I DIASTOLIC DYSFUNCTION COMMENTS: 1. NORMAL LEFT VENTRICULAR SYSTOLIC FUNCTION, EJECTION FRACTION 60-65%, NORMAL WALL MOTION 2. MILDLY DILATED RIGHT VENTRICULAR CAVITY 3. SEVRE PULMONARY HYPERTENSION (RIGHT VENTRICULAR SYSTOLIC PRESSURE GREATER THAN 60 mmHg) 4. ELEVATED FILLING PRESSURE (RIGHT ATRIAL PRESSURE 10-15 mmHg) TECHNOLOGIST: MAYRA NORIEGA [facility]
--- NOTE | 2024-08-30 11:29 | RAD REPORT ---
EXAM: CT Chest For Pe Angio TECHNIQUE: CT angiogram of the chest was performed following intravenous contrast administration, inc luding sagittal and coronal as well as maximum intensity projection reformats. One or more of the following dose reduction techniques were used: Automated exposure control, adjustment of the mA and k V according to patient size, and iterative reconstruction. Unless otherwise specified, incidental findings do not require dedicated imaging follow-up. INDICATION: [facility] MAIN syncope, hypoxia, lung CA hx Y COMPARISON: 08/29/2024. FINDINGS: LINES/TUBES: None. PULMONARY ARTERIES: Main pulmonary arteries are normal in caliber. No filling defects within the pul monary arteries to suggest pulmonary embolus. LUNGS AND AIRWAYS: Noninclusion of the lung apices limits evaluation. Central airways are patent. Wed ge-shaped segmental opacity involving the upper and posterior right upper lobe with volume loss and some bronchiectatic changes within, stable. Other subsegmental peripheral right lower lobe opacities are also stable.. PLEURA: No effusion or pneumothorax. HEART AND MEDIASTINUM: The visualized thyroid gland is normal. No mediastinal, hilar, or axillary lym phadenopathy. Heart is unremarkable. No pericardial effusion. SOFT TISSUES AND BONES: Anterior wedge compression deformity at T12 appears stable. No acute osseous abnormality. No significant soft tissue finding. UPPER ABDOMEN: Nonobstructing right renal calculi largest at the right lower calyx measuring 5 mm. Se [place] left and mild right hydronephrosis, appears stable. Gallbladder is decompressed. IMPRESSION: No evidence of acute central pulmonary emboli. Incidentally noted nonobstructing right renal calculi, largest measuring 5 mm. Severe left and mild r ight hydronephrosis, appears stable. Stable right upper and lower lobe opacities, may relate to posttreatment changes and/or scarring. Oth er stable incidental findings as above.
--- NOTE | 2024-08-30 12:42 | P.PN ---
Subjective Date of Service: 08/30/24 Chief Complaint: Syncope, acute kidney injury Subjective: No new changes, No C/O voiced, Tolerating diet, Ambulating, Improving Review of Systems 10-point ROS is otherwise unremarkable Physical Examination - Vital Signs Temperature: 97.7 F Blood Pressure: 119/69 Pulse: 85 Respirations: 16 Pulse Ox (%): 90 - Physical Exam General: Alert, In no apparent distress HEENT: Atraumatic, PERRLA, EOMI Neck: Supple, JVD not distended Respiratory: Clear to auscultation bilaterally, Normal air movement Cardiovascular: Regular rate/rhythm, Normal S1 S2 Gastrointestinal: Normal bowel sounds, No tenderness Musculoskeletal: No tenderness Integumentary: No rashes Neurological: Normal speech, Normal tone, Normal affect Lymphatics: No axilla or inguinal lymphadenopathy - Studies Medications List Reviewed: Yes Assessment And Plan - Current Problems (Diagnosis) (1) Syncope Current Visit: Yes Status: Acute Plan: most likely vasovagal, orthostatic vs hypoxia Echo shows normal EF with severe pulmonary hypertension continue to monitor on tele (2) CAD (coronary artery disease) Current Visit: Yes Status: Acute Plan: no active chest pain or EKG changes, troponin mild peak and trended down Echo shows normal EF, wall motion outpatient follow up with cardiology for stress test (3) HTN (hypertension) Current Visit: Yes Status: Acute Plan: BP is soft off medications. keep holding his BP medications and monitor BP (4) Pulmonary hypertension Current Visit: Yes Status: Acute Plan: Echo shows elevated filling pressure and severe pulmonary hypertension, unkown etiology, CTA negative. start lasix 20 mg daily start Sprinolactone 25 mg daily monitor input and output and electrolytes
--- NOTE | 2024-08-30 12:46 | P.PN ---
Date of Service: 08/30/24 Subjective: Had a syncopal episode yesterday while having a bowel movement off of his oxygen Was hypotensive and hypoxic at that time Quickly recovered [facility] and started on oxygen Has done well since then ROS: 10 point ROS as noted above, otherwise negative Physical exam GEN: Alert, oriented, NAD HEENT: Normal conjunctiva, sclera anicteric CV: Regular rate and rhythm, nasal cannula Pulm: Nonlabored respirations on room air ABD: Soft, nontender, nondistended MSK: No joint tenderness Integumentary: No rashes Neuro: Normal speech, normal affect Vitals reviewed Assessment: Dizziness, syncope Severe pulmonary hypertension Acute kidney injury History of CAD COPD Hypertension Neuropathy Plan: Dizziness, syncope Severe pulmonary hypertension Acute kidney injury Denies any recent changes in medications Mild bump in troponin after event from yesterday Cardiology recommends outpatient stress test Echocardiogram with normal LVEF, severe pulmonary hypertension Lasix 20 mg daily and spironolactone 25 mg daily started as per cardiology lorna mmendations Orthostatic vitals were negative CTA negative for PE-discussed risk of kidney injury but given severe pulmonary hypertension, syncope and hypoxia it was determined it was more important to rule out PE Recheck chemistry in the morning History of CAD COPD Hypertension Neuropathy Continue home medications when verified-hold oral antihypertensives aside from these Lasix and spironolactone for now DVT PPX: Heparin subcu Code status: Full code Discharge Plan: Home Plan to discharge in: 24 Hours Time Spent Managing Pts Care (In Minutes): 35
[2024-08-30] MEDS ORDERED: ALBUTEROL 2.5 MG/3 ML NEB SOL NEB PRN (12:58)
[2024-08-31 06:30] LABS: Absolute Basophils 0.1 K/uL (0-0.5); Absolute Eosinophils 0.3 K/uL (0-0.5); Absolute Lymphocytes (CBC) 2.1 K/uL (0.7-4.9); Absolute Neutrophil 6.5 K/uL (1.8-8.0); Basophils % 0.8 % (0-1.3); Eosinophils % 3.3 % (0-4.4); Hemoglobin 14.1 g/dL (13.6-17.9); Lymphocytes % 20.8 % (15.3-44.8); MCH 31.2 pg (27.0-35.0); MCHC 33.5 g/dL (32.0-36.0); MCV 93.2 fL (80-100); MPV 6.8 fL (7.6-11.3); Monocytes % 10.2 % (3.3-12.3); Neutrophils % 64.9 % (41.7-73.7); Nucleated Red Blood Cells % 0.1 % (0-0); Platelets 249 thou/uL (152-406); RBC Red Blood Cell Count 4.51 M/uL (4.33-5.43); Red Cell Distribution Width 15.4 % (12.1-15.2)
[2024-08-31 06:44] LABS: Albumin 3.1 g/dL (3.4-5.0); Albumin/Globulin Ratio 0.9 (1.1-1.8); Bilirubin Total 0.6 mg/dL (0.2-1.0); Globulin 3.3 g/dL (2.3-3.5); Protein, Total 6.4 g/dL (6.4-8.2)
[2024-08-31] MEDS: SPIRONOLACTONE 25 MG TABLET PO SCH (08:41)
[2024-08-31] MEDS: FUROSEMIDE 20 MG TABLET PO SCH (08:41)
[2024-08-31 12:19] VITALS: BP 131/66; TEMP 97.7
--- NOTE | 2024-08-31 13:35 | P.DS ---
Admission Date: 08/29/24 Discharge Date: 08/31/24 Disposition: ROUTINE DISCHARGE Discharge Condition: GOOD Reason for Admission: Syncope, acute kidney injury Brief History of Present Illness: Diagnosis Dizziness, syncope Severe pulmonary hypertension Acute kidney injury History of CAD COPD Hypertension Neuropathy HPI 08/29/2024 84-year-old male with history of CAD with previous stent, colon cancer with mets to lung about 6 years ago, COPD, hypertension, neuropathy presents the emergency department chief complaint of syncope. Reports that he has been feeling dizzy lately when he stands up, after standing and trying to walk to the bathroom he had a syncopal event preceded by dizziness and shortness of breath with loss of consciousness. He denies any recent changes in his medications, denies chest pain. Patient was evaluated in the emergency department his initial high sensitive troponin was 19.[address] head/C-spine/chest abdomen pelvis was negative for acute findings. 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 Patient was admitted for further evaluation and management of syncope, acute kidney injury Hospital Course: Jermaine was admitted and evaluated for a syncopal episode. Remained on continuous telemetry this admission with no acute events noted. Dr. Perry has consulted and cleared him for discharge and follow-up outpatient. Echocardiogram showing severe pulmonary hypertension, patient has remained on 2- 3 L nasal cannula this admission. Room oxygen saturation between 87 and 89 variably. Walk test resulted with stability to ambulate. Jermaine denies dizziness. Educated to follow up with Cardiology and take his blood pressure twice daily for close monitoring while taking Aldactone and lasix. Follow up is expected to his PCP for continued lab work to monitor potassium and kidney function. Physical Exam Physical exam GEN: Alert and oriented x3 , NAD HEENT: Normal conjunctiva, sclera anicteric CV: Normal sinus rhythm, nasal cannula Pulm: Clear BBS, nonlabored breathing, on 2LNC ABD: Soft and nontender on palpation MSK: No joint tenderness Integumentary: No rashes Neuro: Normal speech, normal affect Vital Signs/Physical Exam: Temp Pulse Resp BP Pulse Ox 97.7 F 87 18 131/66 90 L 08/31/24 12:00 08/31/24 12:00 08/31/24 12:00 08/31/24 12:00 08/31/24 12:00 Laboratory Data at Discharge: WBC 10.00 thou/uL (4.3-10.9) 08/31/24 05:59 Hgb 14.1 g/dL (13.6-17.9) 08/31/24 05:59 Hct 42.0 % (39.6-49.0) 08/31/24 05:59 Plt Count 249 thou/uL (152-406) 08/31/24 05:59 PT 12.5 SECONDS (10-13.0) 08/28/24 23:32 INR 1.10 08/28/24 23:32 Sodium 140 mEq/L (136-145) 08/31/24 05:59 Potassium 4.0 mEq/L (3.5-5.1) D 08/31/24 05:59 BUN 20 mg/dL (7-18) H 08/31/24 05:59 Creatinine 1.48 mg/dL (0.70-1.30) H 08/31/24 05:59 Glucose 98 mg/dL (74-106) 08/31/24 05:59 Magnesium 1.9 mg/dL (1.6-2.4) 08/29/24 16:35 Total Bilirubin 0.6 mg/dL (0.2-1.0) 08/31/24 05:59 AST 14 U/L (15-37) L 08/31/24 05:59 ALT 19 U/L (16-61) 08/31/24 05:59 Alkaline Phosphatase 74 U/L (45-117) 08/31/24 05:59 Home Medications: Clopidogrel Bisulfate [Plavix*] 75 mg PO DAILY 02/18/16 Metoprolol Succinate [Toprol Xl*] 50 mg PO DAILY 02/18/16 Simvastatin 80 mg PO DAILY 02/18/16 Gabapentin 300 mg PO PRN PRN 08/29/24 Tramadol HCl [Ultram] 50 mg PO PRN PRN 08/29/24 Furosemide [Lasix*] 20 mg PO DAILY 30 Days #30 tab 08/31/24 Spironolactone [Aldactone*] 25 mg PO DAILY 30 Days #30 tab 08/31/24 New Medications: Spironolactone [Aldactone*] 25 mg PO DAILY 30 Days #30 tab Furosemide [Lasix*] 20 mg PO DAILY 30 Days #30 tab Physician Discharge Instructions: 1. Please call and schedule a follow-up appointment with your PCP in 3-5 days - Please follow-up with your PCP for medication refills/adjustments, Lab work to monitor potassium level and kidney function while taking lasix -Please check your blood pressure twice daily and record for your PCP and developmental mathematics professor 2. Please call and schedule a follow-up appointment with Dr. Meyer in 3-5 days 3. Continue heart healthy diet 4. activity restrictions , fall precautions 5. Return to the ED if symptoms worsen New medications Aldactone 25 mg daily Lasix 20 mg daily Please check your blood pressure twice daily to see the effects of these medications on your blood pressure. Oxygen to be used on 2 LNC, PCP and cardiology will adjust as needed. Diet: AHA Activity: Fall precautions Followup: NONE,NONE [Primary Care Provider] - Mohinder Meyer MD [ACTIVE - CAN ADMIT] -
[2024-08-31 15:21] VITALS: O2SAT 98
== END 2024-08-31 14:00 | disposition home or self-care (01) | DRG 312 ==
LOC: ER 23:09 → ERHOLD 08-29 07:14 → 4TH 08-29 12:50 → OBSVTOIN 08-29 16:28
PROVIDERS: ADMIT Hospitalist; ATTEND Hospitalist
DX: R55 Syncope and collapse (principal); N17.9 Acute kidney failure, unspecified; C78.00 Secondary malignant neoplasm of unspecified lung; G62.9 Polyneuropathy, unspecified; E86.0 Dehydration; I10 Essential (primary) hypertension; I27.20 Pulmonary hypertension, unspecified; J44.9 Chronic obstructive pulmonary disease, unspecified; I25.10 Atherosclerotic heart disease of native coronary artery without angina pectoris; I25.2 Old myocardial infarction; Z95.5 Presence of coronary angioplasty implant and graft; Z90.49 Acquired absence of other specified parts of digestive tract; Z79.02 Long term (current) use of antithrombotics/antiplatelets; Z79.899 Other long term (current) drug therapy; Z87.891 Personal history of nicotine dependence; Z85.038 Personal history of other malignant neoplasm of large intestine
CPT/HCPCS: 36415; 70450; 71250; 71275; 72125; 74176; 80048; 80053; 80076; 83735; 83880; 84439; 84443; 84484; 85025; 85610; 93005; 93306; 93970; 96361; 96374; 96375; 97112; 97116; 97161; 97530; 99285; G0378; J1644; J2270; J2405; J7030; Q9967